=== PATIENT | female | born 1965 | race Caucasian/White ===

== ENCOUNTER 2018-06-16 12:45 | Outpatient (RCR) | payer OTHER, MEDICAID, SELFPAY ==
--- NOTE | 2018-02-26 11:19 | PT.OTN ---
Current Diagnoses Impingement syndrome of right shoulder (02/26/18) Other symptoms and signs involving the musculoskeletal system (02/26/18) Transition note: On February 24, 2018 our therapy services consisting of Speech, Occupational, and Physical Therapy transitioned from the [employer] electronic documentation system to a new [employer] electronic documentation system.?? All documentation prior to February 24 can be found under [employer] saved data. From February 24 forward all medical record documentation will be in [employer] 6.1.
--- NOTE | 2018-02-26 16:31 | PT.OTN ---
Current Diagnoses Impingement syndrome of right shoulder (02/26/18) Other symptoms and signs involving the musculoskeletal system (02/26/18) Physical Therapy Treatment Note PT-OP-A Visit Information Start: 02/26/18 11:31 Freq: Status: Active Protocol: Activity Type Activity Date Activity User E-Sign Co-Sign Detail Recorded Client Recorded Date Recorded By Document 02/26/18 16:12 [facility] [id number] 02/26/18 16:15 [facility] 02/26/18 16:12 Out-Patient Physical Therapy Visit Information [Visit Information] -Visit Type Treatment Note -Visit Start Time 11:30 -Visit Stop Time 12:25 -Total Visit Minutes 55 -Visit Number 4 -Number of HAND RIVETER Visits 0 PT-OP-C Subjective Start: 02/26/18 11:31 Freq: Status: Active Protocol: Activity Type Activity Date Activity User E-Sign Co-Sign Detail Recorded Client Recorded Date Recorded By Document 02/26/18 11:32 [facility] [id number] 02/26/18 11:48 [facility] 02/26/18 11:32 OP-PT Subjective [Patient Comments] -Patient Comments Hasn't noticed anything specifically different. Moved funky at home once and thought she 'd have pain, but didn't. Thinks she is better at her ex's. -Patient Reported Progress Same PT-OP-Q Treatments Start: 02/26/18 11:31 Freq: Status: Active Protocol: Activity Type Activity Date Activity User E-Sign Co-Sign Detail Recorded Client Recorded Date Recorded By Document 02/26/18 11:32 [facility] [id number] 02/26/18 11:48 [facility] 02/26/18 11:32 Cardio Equipment [Upper Body Ergometer (UBE)] -Duration (Minutes) 9 -RPM 80 Therapeutic Exercises [Supine Exercises] 2 -Supine Exercise Name Core stabilization on 10/28 roll with arm movements -Side bilateral -Comments Training needed . 1 -Supine Exercise Name Pectoralis Major stretch on 10/28 roll, followed by 10 scapular pinches -Side bilateral -Reps/Minutes 3 reps -Comments Arms in 2 postions: Sides & Football Goal position [Sidelying Exercises] 1 -Sidelying Exercise Name R thoracic rotation -Side left -Reps/Minutes 10x3 2 -Sidelying Exercise Name R thoracic rotation with resistance -Side left -Resistance Lev 1 T-Band -Reps/Minutes 10x3 [Standing Exercises] 1 -Standing Exercise Name Scapular depression -Side bilateral -Resistance L 2 T-Band -Reps/Minutes 15 reps PT-OP-R Modalities Start: 02/26/18 11:31 Freq: Status: Active Protocol: Activity Type Activity Date Activity User E-Sign Co-Sign Detail Recorded Client Recorded Date Recorded By Document 02/26/18 16:12 [facility] [id number] 02/26/18 16:15 [facility] 02/26/18 16:12 Hot Pack/Cold Pack [Treatment] Cold Pack -Location Back -Patient Position Supine -Treatment Duration (minutes) 10 -Patient Tolerance Good PT-OP-T Assessment and Plan Start: 02/26/18 11:31 Freq: Status: Active Protocol: Activity Type Activity Date Activity User E-Sign Co-Sign Detail Recorded Client Recorded Date Recorded By Document 02/26/18 11:48 [facility] [id number] 02/26/18 12:02 LRN 02/26/18 11:48 Physical Therapy Assessment [Impairments] -Impairments Posture ROM Strength -Other Impairments Self care education needed (HEP), core stabilization, pain relief, Improve: R shoulder flex, Cervical R rot & thoracic ext mobility. [Assessment Summary] -Assessment Pt moves very slowly and cautiously with ex's. Pt demonstrates good posture with verbal cuing. Continued thoracic ext/ rot and core stab needed. Physical Therapy Plan [Frequency and Duration] -Frequency of Treatment 2x/Week -Plan of Care Start Date 02/05/18 -Plan of Care End Date 04/06/18 [Next Visit Focus/Plan] -Next Visit Plan Current Rehab: R shoulder impingement/ posture, mobility restriction. Add JMT to correct T/S kyphosis, strengthening trunk extensors /core, HEP as needed, cryotherapy. Progress as tolerated: HEP core/posture, Postural stabilitation. STM/JMT. Stretch & progress strengthening inbto ext. ROM for C/S R Rot & R shoulder flexion.
--- NOTE | 2018-03-02 15:40 | PT.OTN ---
Current Diagnoses Impingement syndrome of right shoulder (03/02/18) Other symptoms and signs involving the musculoskeletal system (03/02/18) Physical Therapy Treatment Note PT-OP-A Visit Information Start: 02/26/18 11:31 Freq: Status: Active Protocol: Activity Type Activity Date Activity User E-Sign Co-Sign Detail Recorded Client Recorded Date Recorded By Document 03/02/18 11:29 [facility] [id number] 03/02/18 12:31 [facility] 03/02/18 11:29 Out-Patient Physical Therapy Visit Information [Visit Information] -Visit Type Treatment Note -Visit Start Time 11:29 -Visit Stop Time 12:17 -Total Visit Minutes 51 -Visit Number 5 -Number of EQUIPMENT LEAD Visits 0 PT-OP-C Subjective Start: 02/26/18 11:31 Freq: Status: Active Protocol: Activity Type Activity Date Activity User E-Sign Co-Sign Detail Recorded Client Recorded Date Recorded By Document 03/02/18 11:29 [facility] [id number] 03/02/18 11:30 [facility] 03/02/18 11:29 OP-PT Subjective [Patient Comments] -Patient Comments Having less pain overall. Did weed eating and was cautious and was sore, not pain. Better overall than it would have been. PT-OP-Q Treatments Start: 02/26/18 11:31 Freq: Status: Active Protocol: Activity Type Activity Date Activity User E-Sign Co-Sign Detail Recorded Client Recorded Date Recorded By Document 03/02/18 11:29 [facility] [id number] 03/02/18 11:40 [facility] 03/02/18 11:29 Cardio Equipment [Upper Body Ergometer (UBE)] -Duration (Minutes) 8 -RPM 80 -Seat Position 12 -Height Head height 3 Therapeutic Exercises [Supine Exercises] 5 -Supine Exercise Name Shoulder flexion Isometrics -Side bilateral -Reps/Minutes 10 reps -Comments On 10/28 Roll: Holding 5 sec's , 3 deep breathes before exercise 4 -Supine Exercise Name Shoulder flex stretch -Side bilateral -Reps/Minutes 2 reps -Comments On 10/28 roll 3 -Supine Exercise Name Cervical R rotation active stretch -Side right -Comments On 10/28 roll 1 -Supine Exercise Name Pectoralis Major stretch on 10/28 roll, followed by 10 scapular pinches -Side bilateral -Reps/Minutes 3 reps -Comments Arms in 2 positions: Sides & Football Goal position [Sidelying Exercises] 1 -Sidelying Exercise Name R thoracic rotation -Side left -Reps/Minutes 30 2 -Sidelying Exercise Name R thoracic rotation with resistance -Side left -Reps/Minutes 30 [Standing Exercises] 1 -Reps/Minutes 15x2 [Other Exercises] 1 -Other Exercise Name Hands and knees : Thoracic rot stretch: L arm lift or R hand reach under -Side right -Reps/Minutes x 2 each -Comments R rotation, 30 sec holds Manual Therapy Treatment [Joint Mobilizations] 1 -Joint Thoracic -Direction PA Alonzo -Grade III -Reps/Duration 2-3 reps per joint PT-OP-R Modalities Start: 02/26/18 11:31 Freq: Status: Active Protocol: Activity Type Activity Date Activity User E-Sign Co-Sign Detail Recorded Client Recorded Date Recorded By Document 02/26/18 16:12 [facility] [id number] 02/26/18 16:15 [facility] 02/26/18 16:12 Hot Pack/Cold Pack [Treatment] Cold Pack -Location Back -Patient Position Supine -Treatment Duration (minutes) 10 -Patient Tolerance Good PT-OP-T Assessment and Plan Start: 02/26/18 11:31 Freq: Status: Active Protocol: Activity Type Activity Date Activity User E-Sign Co-Sign Detail Recorded Client Recorded Date Recorded By Document 03/02/18 11:29 [facility] [id number] 03/02/18 12:29 [facility] 03/02/18 11:29 Physical Therapy Assessment [Impairments] -Impairments Pain Posture ROM Strength -Other Impairments HEP needed, core stabilization, pain relief. Improve: R shoulder flex, Cervical R rot & thoracic ext mobility [Assessment Summary] -Assessment Pt postural awareness appears improved with a decrease in kyphosis. She is moving more confidently with ex's. Stiffness is present with thoracic rotation. Thoracic ext/ rot & core stab needed. Physical Therapy Plan [Frequency and Duration] -Frequency of Treatment 2x/Week -Duration of Treatment 5 weeks left -Plan of Care Start Date 02/05/18 -Plan of Care End Date 04/06/18 [Therapeutic Interventions] -Other Therapeutic Interventions HEP, Education, Therapeutic Ex's, Stretching/ Flexibility ex' s, Neuromuscular ex's, Manual therapy, JMT, ? Aquatics Pool. [Next Visit Focus/Plan] -Next Visit Plan Current Rehab: R shoulder impingement/ posture, mobility restriction. Check: Cervical R rot and R shoulder flexion ROM, thoracic kyphosis (Wall to Tragus), strengthening trunk extensors /core, HEP as needed, cryotherapy. Progress as tolerated: HEP core/posture, Postural stabilization. STM/JMT. Stretch & progress strengthening into ext. ROM for C/S R Rot & R shoulder flexion. [ End ]
--- NOTE | 2018-03-05 12:33 | PT.OTN ---
Current Diagnoses Impingement syndrome of right shoulder (03/05/18) Other symptoms and signs involving the musculoskeletal system (03/05/18) Physical Therapy Treatment Note PT-OP-A Visit Information Start: 02/26/18 11:31 Freq: Status: Active Protocol: Document 03/05/18 11:23 LRN (Rec: 03/05/18 12:28 LRN [id number]) Out-Patient Physical Therapy Visit Information Visit Information Visit Type Treatment Note Visit Start Time 11:15 Visit Stop Time 12:10 Visit Number 6 Number of BURRER MARKER AXLE Visits 0 Evaluation Information Evaluation Date 02/05/18 PT-OP-C Subjective Start: 02/26/18 11:31 Freq: Status: Active Protocol: Document 03/05/18 11:23 LRN (Rec: 03/05/18 12:28 LRN [id number]) OP-PT Subjective Patient Comments Patient Comments R shoulder with twisting, bending, reaching is having less fear moving because the shoulder feels better. Leaning to stretch for her phone didn't cause her pain. Buring pain along spine just a little bit, no shoulder pain at the moment. Patient Reported Progress Improving PT-OP-K Range of Motion Start: 03/05/18 12:28 Freq: Status: Active Protocol: Document 03/05/18 11:23 LRN (Rec: 03/05/18 12:31 LRN [id number]) Cervical Spine Range of Motion Cervical Spine Active Testing Position Sitting Rotation Left 78 Rotation Right 60 Shoulder Goniometric Range of Motion Shoulder Measured in Degrees Left Active Testing Position Sitting Flexion 158 Right Active Testing Position Sitting Flexion 170 PT-OP-Q Treatments Start: 02/26/18 11:31 Freq: Status: Active Protocol: Document 03/05/18 11:23 LRN (Rec: 03/05/18 12:28 LRN [id number]) Cardio Equipment Upper Body Ergometer (UBE) Duration (Minutes) 10 RPM 79 Seat Position 11 Height Head height 3 Therapeutic Exercises Supine Exercises 5 Supine Exercise Name Shoulder flexion Isometrics Side bilateral Reps/Minutes 10 reps Comments On 2 Roll: Holding 5 sec's, 3 deep breathes before exercise 4 Supine Exercise Name Shoulder flex stretch Side bilateral Reps/Minutes 10 reps Comments On 2 roll, 10 sec holds 3 Supine Exercise Name Cervical R rotation active stretch Side right Reps/Minutes 10 reps Comments On 10/28 roll 1 Supine Exercise Name Pectoralis Major stretch on 10/28 roll, followed by 10 scapular pinches Side bilateral Reps/Minutes 2 reps Comments Arms in 2 positions: Sides & Football Goal position Prone Exercises 1 Prone Exercise Name Alternate arm/leg lifts with Deep Cervical Neck Flexor contraction Side bilateral Reps/Minutes 10 reps Sidelying Exercises 1 Sidelying Exercise Name R thoracic rotation Side bilateral Reps/Minutes 15 Manual Therapy Treatment Joint Mobilizations 1 Joint Thoracic Direction PA Alonzo Grade III Reps/Duration 2-3 reps per joint Self-Care/Home Management Treatment Activities Self-Care/Home Management Activities Instructed pt to do Thoracic rotation in sidelie and C. Rotation bilaterally. Pt to work towards symmetry of C. rot & shoulder flexion. PT-OP-R Modalities Start: 02/26/18 11:31 Freq: Status: Active Protocol: Document 03/05/18 11:23 LRN (Rec: 03/05/18 12:28 LRN [id number]) Hot Pack/Cold Pack Treatment Cold Pack Location Upper > Low back Patient Position Supine Treatment Duration (minutes) 10 Patient Tolerance Good PT-OP-T Assessment and Plan Start: 02/26/18 11:31 Freq: Status: Active Protocol: Document 03/05/18 11:23 LRN (Rec: 03/05/18 12:28 LRN [id number]) Physical Therapy Assessment Impairments Impairments Pain Posture ROM Strength Other Impairments HEP needed, core stabilization , pain relief. Improve: Symmetry of Cervical rot & shoulder flex. Impronve thoracic ext mobility. Assessment Summary Assessment Pt demonstrates greater R Cervical rotation and shoulder flexion than the left. Wall to Tragus is 6 3/4 inches. Pt now needs to focus on improving symmetry of motion of cervical rotation and shoulder flexion. Physical Therapy Plan Frequency and Duration Frequency of Treatment 2x/Week Duration of Treatment 5 weeks left Plan of Care Start Date 02/05/18 Plan of Care End Date 04/06/18 Therapeutic Interventions Other Therapeutic Interventions HEP, Education, Therapeutic Ex's, Stretching/Flexibility ex's, Neuromuscular ex's, Manual therapy, JMT, ?Aquatics Pool. Next Visit Focus/Plan Next Visit Plan T-Ball. Current Rehab: R shoulder impingement/posture, mobility restriction. Try Trunk ext stretch and ex on Strengthening trunk extensors/core, HEP as needed, cryotherapy. Progress as tolerated: HEP core/posture, Postural stabilization. STM/JMT. Stretch & progress strengthening inbto ext. ROM for C/S R Rot & R shoulder flexion. [ End ]
--- NOTE | 2018-03-09 12:31 | PT.OTN ---
Current Diagnoses Impingement syndrome of right shoulder (03/09/18) Other symptoms and signs involving the musculoskeletal system (03/09/18) Physical Therapy Treatment Note PT-OP-A Visit Information Start: 02/26/18 11:31 Freq: Status: Active Protocol: Document 03/09/18 11:20 LRN (Rec: 03/09/18 12:13 LRN [id number]) Out-Patient Physical Therapy Visit Information Visit Information Visit Type Treatment Note Visit Note 05/05 Visit Start Time 11:17 Visit Stop Time 12:03 Total Visit Minutes 48 Visit Number 7 Number of GRIP Visits 0 Evaluation Information Evaluation Date 02/05/18 PT-OP-C Subjective Start: 02/26/18 11:31 Freq: Status: Active Protocol: Document 03/09/18 11:20 LRN (Rec: 03/09/18 12:13 LRN [id number]) OP-PT Subjective Patient Comments Patient Comments States she has stiffness in the upper back. Upper back pain with washing dishes because of the depth of the sink, after 10' feels it. PT-OP-K Range of Motion Start: 03/05/18 12:28 Freq: Status: Active Protocol: Document 03/05/18 11:23 LRN (Rec: 03/05/18 12:31 LRN [id number]) Cervical Spine Range of Motion Cervical Spine Active Testing Position Sitting Rotation Left 78 Rotation Right 60 Shoulder Goniometric Range of Motion Shoulder Measured in Degrees Left Active Testing Position Sitting Flexion 158 Right Active Testing Position Sitting Flexion 170 PT-OP-Q Treatments Start: 02/26/18 11:31 Freq: Status: Active Protocol: Document 03/09/18 11:20 LRN (Rec: 03/09/18 12:13 LRN [id number]) Cardio Equipment Upper Body Ergometer (UBE) Duration (Minutes) 10 RPM 70 Seat Position 11 Height Head height 3 Therapeutic Exercises Supine Exercises 6 Supine Exercise Name Hands/Knees Push without pillow & Deep C. Neck flexor contraction Reps/Minutes 15 reps, 10 sec holds Comments T-Ball supporting legs, performed with Kegel 5 Supine Exercise Name Shoulder flexion Isometrics Side bilateral Reps/Minutes 10 reps Comments On T-Ball: Holding 5 sec's, 3 deep breathes before exercise 4 Supine Exercise Name Shoulder flex stretch Side bilateral Reps/Minutes 10 reps Comments On T-Ball roll, 60 sec holds 3 Supine Exercise Name Cervical R rotation active stretch Side right Reps/Minutes 10 reps 1 Supine Exercise Name Pectoralis Major stretch on T- Ball, followed by 10 scapular pinches Side bilateral Reps/Minutes 2 reps Comments Arms in 2 positions: Sides & Football Goal position Prone Exercises 1 Prone Exercise Name Alternate arm/leg lifts with Deep Cervical Neck Flexor contraction Side bilateral Reps/Minutes 10 reps Sidelying Exercises 1 Sidelying Exercise Name R thoracic rotation Side bilateral Reps/Minutes 15 Sitting Exercises 1 Sitting Exercise Name T-Band shoulder ER Side bilateral Resistance Lev 1 Equipment Used T-Band Reps/Minutes 15 Self-Care/Home Management Treatment Activities Self-Care/Home Management Activities I/S pt to do HEP: T-Band shoulder ER ex and more prone arm/leg lifts with abdominal contraction for core stability . PT-OP-R Modalities Start: 02/26/18 11:31 Freq: Status: Active Protocol: Document 03/09/18 11:20 LRN (Rec: 03/09/18 12:13 LRN [id number]) Hot Pack/Cold Pack Treatment Cold Pack Location Upper > Low back Patient Position Supine Treatment Duration (minutes) 10 Patient Tolerance Good PT-OP-T Assessment and Plan Start: 02/26/18 11:31 Freq: Status: Active Protocol: Document 03/09/18 11:20 LRN (Rec: 03/09/18 12:13 LRN [id number]) Physical Therapy Assessment Impairments Impairments Pain Posture ROM Strength Other Impairments HEP needed, core stabilization, pain relief. Improve: Symmetry of Cervical rot & shoulder flex. Improve thoracic ext mobility. Assessment Summary Assessment Thoracic rot L appears more restricted than rot R. Pt able to reach overhead without onset of shoulder pain. Physical Therapy Plan Frequency and Duration Frequency of Treatment 2x/Week Duration of Treatment 4 weeks left Plan of Care Start Date 02/05/18 Plan of Care End Date 04/06/18 Therapeutic Interventions Other Therapeutic Interventions HEP, Education, Therapeutic Ex's, Stretching/Flexibility ex's, Neuromuscular ex's, Manual therapy, JMT, ?Aquatics Pool. Next Visit Focus/Plan Next Visit Plan Progress upper back ex's on T- Ball for thoracic ext and strengthening. Current Rehab: R shoulder impingement/posture, mobility restriction, Strengthening trunk extensors/ core, HEP as needed, cryotherapy. Progress as tolerated: HEP core, Postural stabilization, JMT, Trunk stretch & strengthening progression into ext. ROM for symmetry of C/S Rot & shoulder flexion. [ End ]
--- NOTE | 2018-03-12 13:11 | PT.OTN ---
Current Diagnoses Impingement syndrome of right shoulder (03/12/18) Other symptoms and signs involving the musculoskeletal system (03/12/18) Physical Therapy Treatment Note PT-OP-A Visit Information Start: 02/26/18 11:31 Freq: Status: Active Protocol: Document 03/12/18 11:22 LRN (Rec: 03/12/18 13:06 LRN [id number]) Out-Patient Physical Therapy Visit Information Visit Information Visit Type Treatment Note Visit Note 06/05 Visit Start Time 11:20 Visit Stop Time 12:13 Total Visit Minutes 53 Visit Number 8 Number of TAR BOILER Visits 0 Evaluation Information Evaluation Date 02/05/18 PT-OP-C Subjective Start: 02/26/18 11:31 Freq: Status: Active Protocol: Document 03/12/18 11:22 LRN (Rec: 03/12/18 13:06 LRN [id number]) OP-PT Subjective Patient Comments Patient Comments States her entire back was more sore yesterday. Stiff overall. if it wasn't for yesterday Id say I was improving. Feeling she can carry her purse better without a strain. PT-OP-K Range of Motion Start: 03/05/18 12:28 Freq: Status: Active Protocol: Document 03/12/18 13:09 LRN (Rec: 03/12/18 13:11 LRN [id number]) Cervical Spine Range of Motion Cervical Spine Active Rotation Left 85 Rotation Right 75 Comments Wall to Tragus: 6-3/8 inches Shoulder Goniometric Range of Motion Shoulder Measured in Degrees Left Active Testing Position Supine Flexion 170 Right Active Testing Position Sitting Flexion 170 PT-OP-Q Treatments Start: 02/26/18 11:31 Freq: Status: Active Protocol: Document 03/12/18 11:22 LRN (Rec: 03/12/18 13:06 LRN [id number]) Cardio Equipment Upper Body Ergometer (UBE) Duration (Minutes) 10 RPM 70 Seat Position 11 Height Head height 3 Therapeutic Exercises Supine Exercises 5 Supine Exercise Name Shoulder flexion Isometrics Side bilateral Reps/Minutes 10 reps Comments On 1/2 roll: Holding 5 sec's 4 Supine Exercise Name Shoulder flex stretch Side bilateral Reps/Minutes 1 reps Comments On 1/2 roll, 60 sec holds 3 Supine Exercise Name Cervical R rotation active stretch Side right Reps/Minutes 5 reps 1 Supine Exercise Name Pectoralis Major stretch on 10/28 roll, followed by 10 scapular pinches Side bilateral Reps/Minutes 1 reps - 60 second stretch Comments Arms in 2 positions: Sides & Football Goal & overhead position Prone Exercises 1 Prone Exercise Name Alternate arm/leg lifts with Deep Cervical Neck Flexor contraction Side bilateral Reps/Minutes 15 x 2 reps Manual Therapy Treatment Joint Mobilizations 1 Joint Thoracic Direction PA Glides Grade III Reps/Duration 2-3 reps per joint Taping 1 Body Location Thoracic and lumbar paraspinals Treatment Focus Strengthen thoracic paraspinals. Relax lumbar paraspinals. Type of Tape Kinesio Tape Skin Inspection Skin cleaned with 70% alcohol. Skin was health and intact Comments 2 I-strips: 1 along each paraspinals to L 1. One Y- strip starting at L5 up to T 12. Pt felt the K-tape was helping with posture. Self-Care/Home Management Treatment Education Patient Education Safety Other Education Pt instructed in removal of K- tape and of 5 day wear limit. Pt to remove tape 1 day before next treatment session. PT-OP-R Modalities Start: 02/26/18 11:31 Freq: Status: Active Protocol: Document 03/12/18 11:22 LRN (Rec: 03/12/18 13:06 LRN [id number]) Hot Pack/Cold Pack Treatment Cold Pack Location Upper > Low back Patient Position Supine Treatment Duration (minutes) 10 Patient Tolerance Good PT-OP-T Assessment and Plan Start: 02/26/18 11:31 Freq: Status: Active Protocol: Document 03/12/18 11:22 LRN (Rec: 03/12/18 13:06 LRN [id number]) Physical Therapy Assessment Impairments Impairments Pain Posture ROM Strength Other Impairments HEP needed, core stabilization , pain relief. Improve: Symmetry of Cervical rot & shoulder flex. Improve thoracic ext mobility. Goals Three Impairment Decreased Thoracic muscle strength Custodial Goal (LTG) Increase Thoracic strength by no less than 1 grade for elimination of pain with washing of dishes. LTG Duration 04/06/18 Two Impairment Increased Thoracic Kyphosis Short Term Goal (STG) Pt educated in proper posturing to minimize thoracic kyphosis. STG Duration 02/19/18 Custodial Goal (LTG) Pt independent HEP/Self care program. LTG Duration 04/06/18 One Impairment Lacks appropriate home exercise program. Hris Administrator Goal (LTG) Pt educated in proper posturing to minimize thoracic kyphosis. LTG Duration 04/06/18 Progress Towards Goals Progress Towards Goals Progressing Toward Goals Progress Comments Pt has been educated in proper posturing Pt tolerance to exercise is improving; therefore strength appears improved. Her shoulder flex is symmetrical at 170 deg's. Cervical L rotation appears slightly restricted compared to the R. Pt awareness of posture and increased kyphosis is much improved per pt report. Assessment Summary Assessment Pt felt better thoracic stretch felt on 10/28 vs T- Ball. Pt appears to have a good understanding of signs to watch for with a negative skin reaction and when to remove the K-tape. Good tolerance to exercise and stretch, Physical Therapy Plan Frequency and Duration Frequency of Treatment 2x/Week Duration of Treatment 4 weeks left Plan of Care Start Date 02/05/18 Plan of Care End Date 04/06/18 Therapeutic Interventions Other Therapeutic Interventions HEP, Education, Therapeutic Ex's, Stretching/Flexibility ex's, Neuromuscular ex's, Manual therapy, JMT, Aquatics Pool. Next Visit Focus/Plan Next Visit Plan Progress upper back ex's on . Current Rehab: R shoulder impingement/posture, mobility restriction, Strengthening trunk extensors/ core, HEP as needed, cryotherapy. Progress as tolerated: HEP core, Postural stabilization, JMT, Trunk stretch & strengthening progression into ext. ROM for symmetry of C/S Rot & shoulder flexion. [ End ]
--- NOTE | 2018-03-16 12:25 | PT.OTN ---
Current Diagnoses Impingement syndrome of right shoulder (03/16/18) Other symptoms and signs involving the musculoskeletal system (03/16/18) Physical Therapy Treatment Note PT-OP-A Visit Information Start: 02/26/18 11:31 Freq: Status: Active Protocol: Document 03/16/18 11:25 LRN (Rec: 03/16/18 12:17 LRN [id number]) Out-Patient Physical Therapy Visit Information Visit Information Visit Type Treatment Note Visit Note 07/06 Visit Start Time 11:25 Visit Stop Time 12:14 Total Visit Minutes 49 Visit Number 9 Number of PREVOCATIONAL/REHABILITATION COUNSELOR Visits 0 PT-OP-C Subjective Start: 02/26/18 11:31 Freq: Status: Active Protocol: Document 03/16/18 11:25 LRN (Rec: 03/16/18 12:17 LRN [id number]) OP-PT Subjective Patient Comments Patient Comments Shoulder is doing good. K- tape helped to remind her of upright posture. States she can now wipe more easily after using bathroom from behind instead of in front. PT-OP-K Range of Motion Start: 03/05/18 12:28 Freq: Status: Active Protocol: Document 03/12/18 13:09 LRN (Rec: 03/12/18 13:11 LRN [id number]) Cervical Spine Range of Motion Cervical Spine Active Rotation Left 85 Rotation Right 75 Comments Wall to Tragus: 6-3/8 inches Shoulder Goniometric Range of Motion Shoulder Measured in Degrees Left Active Testing Position Supine Flexion 170 Right Active Testing Position Sitting Flexion 170 PT-OP-Q Treatments Start: 02/26/18 11:31 Freq: Status: Active Protocol: Document 03/16/18 11:25 LRN (Rec: 03/16/18 12:17 LRN [id number]) Cardio Equipment Upper Body Ergometer (UBE) Duration (Minutes) 8 RPM 70 Seat Position 11 Height Head height 3 Therapeutic Exercises Supine Exercises 5 Supine Exercise Name Shoulder flexion Isometrics Side bilateral Reps/Minutes 10 reps Comments On 1/2 roll: Holding 5 sec's 4 Supine Exercise Name Shoulder flex stretch Side bilateral Reps/Minutes 1 reps Comments On 1/2 roll, 60 sec holds 3 Supine Exercise Name Cervical R rotation active stretch Side right Reps/Minutes 5 reps 1 Supine Exercise Name Pectoralis Major stretch on 10/28 roll, followed by 10 scapular pinches Side bilateral Reps/Minutes 1 reps - 60 second stretch Comments Arms in 2 postions: Sides & Football Goal & overhead position Sitting Exercises 1 Sitting Exercise Name T-Band shoulder ER/IR Side bilateral Resistance Lev 1 Equipment Used T-Band Reps/Minutes 15x2 Standing Exercises 4 Standing Exercise Name Standing forward bending at hips with cervical/uper Thoracic ext/abdomen Side bilateral Reps/Minutes 10x 3 Standing Exercise Name Shoulde ext with deep C neck flexors Side bilateral Reps/Minutes 15x Comments Arm lifts off back 2 Standing Exercise Name Thoracic rotation (Wood chop motion) Side bilateral Resistance Lev 2 T-Band Reps/Minutes 15x2 Manual Therapy Treatment Joint Mobilizations 1 Joint Thoracic Direction PA Alonzo Grade III Reps/Duration 10' Taping 1 Type of Tape Kinesio Tape Comments Deferred this visit due to pt has no one to help her to remove the tape until her next visit. PT-OP-R Modalities Start: 02/26/18 11:31 Freq: Status: Active Protocol: Document 03/12/18 11:22 LRN (Rec: 03/12/18 13:06 LRN [id number]) Hot Pack/Cold Pack Treatment Cold Pack Location Upper > Low back Patient Position Supine Treatment Duration (minutes) 10 Patient Tolerance Good PT-OP-T Assessment and Plan Start: 02/26/18 11:31 Freq: Status: Active Protocol: Document 03/16/18 11:25 LRN (Rec: 03/16/18 12:17 LRN [id number]) Physical Therapy Assessment Impairments Impairments Pain Posture ROM Strength Other Impairments HEP needed, core stabilization , pain relief. Improve: Symmetry of Cervical rot & shoulder flex. Impronve thoracic ext mobility. Goals Three Impairment Decreased Thoracic muscle strength Long-Term Goal (LTG) Increase Thoracic strength by no less than 1 grade for elimination of pain with washing of dishes. LTG Duration 04/06/18 Two Impairment Increased Thoracic Kyphosis Short Term Goal (STG) Pt educated in proper posturing to minimize thoracic kyphosis. STG Duration 02/19/18 Long-Term Goal (LTG) Pt independent HEP/Self care program. LTG Duration 04/06/18 One Impairment Lacks appropriate home exercise program. Long-Term Goal (LTG) Pt educated in proper posturing to minimize thoracic kyphosis. LTG Duration 04/06/18 Assessment Summary Assessment Pt too fatigued to complete 10 ' cardio ex at end of therapy; therefore pt only tolerated 8 ' on UBE. Pt doesn't have anyone at home to remove K- tape; therefore will defer use until next visit when mom will be available to assist pt . Pt appears to be decreasing her thoracic kyphosis, but her lumbar lordosis is notably increased. Physical Therapy Plan Frequency and Duration Frequency of Treatment 2x/Week Duration of Treatment 3 weeks left Plan of Care Start Date 02/05/18 Plan of Care End Date 04/06/18 Therapeutic Interventions Other Therapeutic Interventions HEP, Education, Therapeutic Ex's, Stretching/Flexibiltiy ex's, Neuromuscular ex's, Manual therapy, JMT, Aquatics Pool. Next Visit Focus/Plan Next Visit Plan Recheck for Progress Note. Current Rehab: R shoulder impingement/posture, mobility restriction, Strengthening trunk extensors/ core, HEP as needed, cryotherapy. Progress as tolerated: HEP core, Postural stabilization, JMT, Trunk stretch & strengthening progression into ext. ROM for symmetry of C/S Rot & shoulder flexion. [ End ] Please Sign and Return: I have reviewed this Plan of Care and certify that the skilled therapy services above are required to meet the patient???s needs. Physician Signature Date Printed Name and Credentials Clinical Instructor Signature Printed Name and Credentials
--- NOTE | 2018-03-19 15:34 | PT.OTN ---
Current Diagnoses Impingement syndrome of right shoulder (03/19/18) Other symptoms and signs involving the musculoskeletal system (03/19/18) Physical Therapy Treatment Note PT-OP-A Visit Information Start: 02/26/18 11:31 Freq: Status: Active Protocol: Document 03/19/18 11:18 LRN (Rec: 03/19/18 12:34 LRN [id number]) Out-Patient Physical Therapy Visit Information Visit Information Visit Type Treatment Note Visit Note 07/06 Visit Start Time 11:18 Visit Stop Time 12:13 Total Visit Minutes 55 Visit Number 10 Number of FISHER Visits 0 Evaluation Information Evaluation Date 02/05/18 PT-OP-C Subjective Start: 02/26/18 11:31 Freq: Status: Active Protocol: Document 03/19/18 11:18 LRN (Rec: 03/19/18 12:42 LRN [id number]) OP-PT Subjective Patient Comments Patient Comments States she had pain in upper back while waiting to check in . States overall doing dishes she only has to stop once to rest when before it was 2-3 times to finish her dishes. Patient Reported Progress Improving Patient Questionnaires Quick Dash- Upper Extremity Quick Dash UE Score 29.54 Quick Dash UE Impairment 20 to 39% Impaired (Score 20- 39) OP-PT Pain Assessment Pain Assessment Grid Paper Pain Assessment Grid Completed Yes Location Bilateral Upper Back Intensity 3 Pain Aggravating Factors Position Activity Standing Patient Stated Pain Goal No pain with entire load of dishes PT-OP-K Range of Motion Start: 03/05/18 12:28 Freq: Status: Active Protocol: Document 03/19/18 11:18 LRN (Rec: 03/19/18 12:42 LRN [id number]) Cervical Spine Range of Motion Cervical Spine Active Rotation Left 78 Rotation Right 78 PT-OP-M Strength Start: 03/19/18 12:35 Freq: Status: Active Protocol: Document 03/19/18 11:18 LRN (Rec: 03/19/18 12:42 LRN [id number]) Trunk Strength Trunk Manual Muscle Testing Extension 3+ Fair+ PT-OP-Q Treatments Start: 02/26/18 11:31 Freq: Status: Active Protocol: Document 03/19/18 11:18 LRN (Rec: 03/19/18 12:34 LRN [id number]) Cardio Equipment Upper Body Ergometer (UBE) Duration (Minutes) 10 RPM 60 Seat Position 11 Height Head height 2 Therapeutic Exercises Supine Exercises 6 Supine Exercise Name Lifting knees to 90 deg's hip flex, Yellow ball btn feet Reps/Minutes 10 reps Comments Some training needed, pt moving slow and cautious. 5 Supine Exercise Name Shoulder flexion Isometrics Side bilateral Reps/Minutes 5 reps Comments On 10/28 roll: Holding 10 sec's 4 Supine Exercise Name Shoulder flex stretch Side bilateral Reps/Minutes 1 reps Comments On 10/28 roll, 60 sec holds 3 Supine Exercise Name Cervical R rotation active stretch Side right Reps/Minutes 5 reps 1 Supine Exercise Name Pectoralis Major stretch on 10/28 roll, followed by 10 Side bilateral Reps/Minutes 1 reps - 60 second stretch Comments Arms in 2 postions: Sides & Football Goal & overhead position Prone Exercises 1 Prone Exercise Name Alternate arm lifts with Deep Cervical Neck Flexor contraction Side bilateral Reps/Minutes 15 x reps Sidelying Exercises 1 Sidelying Exercise Name R thoracic rotation Side bilateral Reps/Minutes 15 2 Sidelying Exercise Name R thoracic rotation with resistance Side left Reps/Minutes 30 Standing Exercises 3 Standing Exercise Name Shoulder ext with deep C neck flexors Side bilateral Reps/Minutes 5 X Comments Arm ext & lifts off back Manual Therapy Treatment Joint Mobilizations 1 Joint Thoracic Direction PA Alonzo Grade III Reps/Duration 3' Comments Improved JMT of T2-T4, mild tenderness at T1-T4. No pain with T5-T6, pain at T7, T8. ~ T6 is R rotated PT-OP-R Modalities Start: 02/26/18 11:31 Freq: Status: Active Protocol: Document 03/19/18 11:18 LRN (Rec: 03/19/18 12:34 LRN [id number]) Hot Pack/Cold Pack Treatment Cold Pack Location Upper > Low back Patient Position Supine Treatment Duration (minutes) 10 Patient Tolerance Good PT-OP-T Assessment and Plan Start: 02/26/18 11:31 Freq: Status: Active Protocol: Document 03/19/18 11:18 LRN (Rec: 03/19/18 12:34 LRN [id number]) Physical Therapy Assessment Rehab Potential Rehabilitation Potential Good Impairments Impairments Pain Posture ROM Strength Other Impairments HEP needed, core stabilization , pain relief. Improve: Symmetry of Cervical rot & shoulder flex. Impronve thoracic ext mobility. Goals Three Impairment Decreased Thoracic muscle strength Jet Engine Mechanic Goal (LTG) Increase Thoracic strength by no less than 1 grade for elimination of pain with washing of dishes. LTG Duration 04/16/18 Two Impairment Increased Thoracic Kyphosis Jet Engine Mechanic Goal (LTG) Pt independent HEP/Self care program. LTG Duration 04/16/18 One Impairment Lacks appropriate home exercise program. Jet Engine Mechanic Goal (LTG) Pt educated in proper posturing to minimize thoracic kyphosis. LTG Duration 04/16/18 Progress Towards Goals Progress Towards Goals Slow Progress due to Activity Tolerance Progress Comments 1) HEP education is ongoing. 2) STG Met. Pt has been educated in proper posturing to minimize thoracic kyphosis. LTG: HEP, progressing with ongoing education as appropriate. 3) Thoracic strength is slowly improving with pain the limiting factor. Pt extreme thoracic kyphosis is hindering her progress. Assessment Summary Assessment Pt has shown good awareness of proper posturing to minimize her thoracic kyphosis; therefore STG #2 met, LTG #2 is ongoing. Pt is being progressed on her HEP as appropriate; therefore goal #1 & #2 is in progress. Her Thoracic strength is limited but improving as noted by a decrease in rest periods during her dishwashing episodes from 3 to now 1 time. Pt would benefit from up to 4 more weeks of skilled physical therapy to improve her posture and Thoracic strength in order to minimize upper back pain. Physical Therapy Plan Frequency and Duration Frequency of Treatment 2x/Week Duration of Treatment 3 weeks left Plan of Care Start Date 02/05/18 Plan of Care End Date 04/10/18 Therapeutic Interventions Therapeutic Interventions Home Exercise Program Manual Therapy Patient/Caregiver Education Self-Care/Home Management Soft Tissue Mobilization Therapeutic Exercises Modalities Cold Pack/Ice Massage Electric Stimulation Hot Packs Iontophoresis Ultrasound Next Visit Focus/Plan Next Visit Plan Check Wall to Tragus distance. Current Rehab: R shoulder impingement/posture, mobility restriction, Strengthening trunk extensors/ core, HEP as needed, cryotherapy. Progress as tolerated: HEP core, Postural stabilization, JMT, Trunk stretch & strengthening progression into ext. ROM for symmetry of C/S Rot & shoulder flexion. [ End ]
--- NOTE | 2018-03-19 15:38 | PT.OPPN ---
Current Diagnoses Impingement syndrome of right shoulder (03/19/18) Other symptoms and signs involving the musculoskeletal system (03/19/18) Physical Therapy Progress Note PT-OP-A Visit Information Start: 02/26/18 11:31 Freq: Status: Active Protocol: Document 03/19/18 11:18 LRN (Rec: 03/19/18 12:34 LRN [id number]) Out-Patient Physical Therapy Visit Information Visit Information Visit Type Progress Note Visit Note 07/06 Visit Start Time 11:18 Visit Stop Time 12:13 Total Visit Minutes 55 Visit Number 10 Number of DIRECTOR MULTIMEDIA Visits 0 Evaluation Information Evaluation Date 02/05/18 PT-OP-C Subjective Start: 02/26/18 11:31 Freq: Status: Active Protocol: Document 03/19/18 11:18 LRN (Rec: 03/19/18 12:42 LRN [id number]) OP-PT Subjective Patient Comments Patient Comments States she had pain in upper back while waiting to check in . States overall doing dishes she only has to stop once to rest when before it was 2-3 times to finish her dishes. Patient Reported Progress Improving Patient Questionnaires Quick Dash- Upper Extremity Quick Dash UE Score 29.54 Quick Dash UE Impairment 20 to 39% Impaired (Score 20- 39) OP-PT Pain Assessment Pain Assessment Grid Paper Pain Assessment Grid Completed Yes Location Bilateral Upper Back Intensity 3 Pain Aggravating Factors Position Activity Standing Patient Stated Pain Goal No pain with entire load of dishes PT-OP-K Range of Motion Start: 03/05/18 12:28 Freq: Status: Active Protocol: Document 03/19/18 11:18 LRN (Rec: 03/19/18 12:42 LRN [id number]) Cervical Spine Range of Motion Cervical Spine Active Rotation Left 78 Rotation Right 78 PT-OP-M Strength Start: 03/19/18 12:35 Freq: Status: Active Protocol: Document 03/19/18 11:18 LRN (Rec: 03/19/18 12:42 LRN [id number]) Trunk Strength Trunk Manual Muscle Testing Extension 3+ Fair+ PT-OP-T Assessment and Plan Start: 02/26/18 11:31 Freq: Status: Active Protocol: Document 03/19/18 11:18 LRN (Rec: 03/19/18 12:34 LRN [id number]) Physical Therapy Assessment Rehab Potential Rehabilitation Potential Good Impairments Impairments Pain Posture ROM Strength Other Impairments HEP needed, core stabilization , pain relief. Improve: Symmetry of Cervical rot & shoulder flex. Improve thoracic ext mobility. Goals Three Impairment Decreased Thoracic muscle strength Senior Care Goal (LTG) Increase Thoracic strength by no less than 1 grade for elimination of pain with washing of dishes. LTG Duration 04/16/18 Two Impairment Increased Thoracic Kyphosis Senior Care Goal (LTG) Pt independent HEP/Self care program. LTG Duration 04/16/18 One Impairment Lacks appropriate home exercise program. Pottery Machine Operator Goal (LTG) Pt educated in proper posturing to minimize thoracic kyphosis. LTG Duration 04/16/18 Progress Towards Goals Progress Towards Goals Slow Progress due to Activity Tolerance Progress Comments 1) HEP education is ongoing. 2) STG Met. Pt has been educated in proper posturing to minimize thoracic kyphosis. LTG: HEP, progressing with ongoing education as appropriate. 3) Thoracic strength is slowly improving with pain the limiting factor. Pt extreme thoracic kyphosis is hindering her progress. Assessment Summary Assessment Pt has shown good awareness of proper posturing to minimize her thoracic kyphosis; therefore STG #2 met, LTG #2 is ongoing. Pt is being progressed on her HEP as appropriate; therefore goal #1 & #2 is in progress. Her Thoracic strength is limited but improving as noted by a decrease in rest periods during her dishwashing episodes from 3 to now 1 time. Pt would benefit from up to 4 more weeks of skilled physical therapy to improve her posture and Thoracic strength in order to minimize upper back pain. Physical Therapy Plan Frequency and Duration Frequency of Treatment 2x/Week Duration of Treatment 3 weeks left Plan of Care Start Date 02/05/18 Plan of Care End Date 04/10/18 Therapeutic Interventions Therapeutic Interventions Home Exercise Program Manual Therapy Patient/Caregiver Education Self-Care/Home Management Soft Tissue Mobilization Therapeutic Exercises Modalities Cold Pack/Ice Massage Electric Stimulation Hot Packs Iontophoresis Ultrasound Next Visit Focus/Plan Next Visit Plan Check Wall to Tragus distance. Current Rehab: R shoulder impingement/posture, mobility restriction, Strengthening trunk extensors/ core, HEP as needed, cryotherapy. Progress as tolerated: HEP core, Postural stabilization, JMT, Trunk stretch & strengthening progression into ext. ROM for symmetry of C/S Rot & shoulder flexion. [ End ] Please Sign and Return: I have reviewed this Plan of Care and certify that the skilled therapy services above are required to meet the patient???s needs. Physician Signature Date Printed Name and Credentials Clinical Instructor Signature Printed Name and Credentials
--- NOTE | 2018-03-19 15:40 | PT.OPPOC ---
Current Diagnoses Impingement syndrome of right shoulder (03/19/18) Other symptoms and signs involving the musculoskeletal system (03/19/18) Provider Visit Care Team Role Provider Type Merline Chou PA-C Family Provider Advanced Practioner Clinician Primary Care Provider Specialty: Medical Address: [address] [place] [address], [id number] Email: [email or web address] Morillo PA-C Attending Provider Advanced Practioner Clinician Specialty: Family Practice Address: [address] [place] [address], [id number] Email: [email or web address] Plan Of Care PT-OP-T Assessment and Plan Start: 02/26/18 11:31 Freq: Status: Active Protocol: Document 03/19/18 11:18 LRN (Rec: 03/19/18 12:34 LRN [id number]) Physical Therapy Assessment Rehab Potential Rehabilitation Potential Good Impairments Impairments Pain Posture ROM Strength Other Impairments HEP needed, core stabilization , pain relief. Improve: Symmetry of Cervical rot & shoulder flex. Improve thoracic ext mobility. Goals Three Impairment Decreased Thoracic muscle strength Cushion Maker Goal (LTG) Increase Thoracic strength by no less than 1 grade for elimination of pain with washing of dishes. LTG Duration 04/16/18 Two Impairment Increased Thoracic Kyphosis Cushion Maker Goal (LTG) Pt independent HEP/Self care program. LTG Duration 04/16/18 One Impairment Lacks appropriate home exercise program. Long-Term Goal (LTG) Pt educated in proper posturing to minimize thoracic kyphosis. LTG Duration 04/16/18 Progress Towards Goals Progress Towards Goals Slow Progress due to Activity Tolerance Progress Comments 1) HEP education is ongoing. 2) STG Met. Pt has been educated in proper posturing to minimize thoracic kyphosis. LTG: HEP, progressing with ongoing education as appropriate. 3) Thoracic strength is slowly improving with pain the limiting factor. Pt extreme thoracic kyphosis is hindering her progress. Assessment Summary Assessment Pt has shown good awareness of proper posturing to minimize her thoracic kyphosis; therefore STG #2 met, LTG #2 is ongoing. Pt is being progressed on her HEP as appropriate; therefore goal #1 & #2 is in progress. Her Thoracic strength is limited but improving as noted by a decrease in rest periods during her dishwashing episodes from 3 to now 1 time. Pt would benefit from up to 4 more weeks of skilled physical therapy to improve her posture and Thoracic strength in order to minimize upper back pain. Physical Therapy Plan Frequency and Duration Frequency of Treatment 2x/Week Duration of Treatment 3 weeks left Plan of Care Start Date 02/05/18 Plan of Care End Date 04/10/18 Therapeutic Interventions Therapeutic Interventions Home Exercise Program Manual Therapy Patient/Caregiver Education Self-Care/Home Management Soft Tissue Mobilization Therapeutic Exercises Modalities Cold Pack/Ice Massage Electric Stimulation Hot Packs Iontophoresis Ultrasound Next Visit Focus/Plan Next Visit Plan Check Wall to Tragus distance. Current Rehab: R shoulder impingement/posture, mobility restriction, Strengthening trunk extensors/ core, HEP as needed, cryotherapy. Progress as tolerated: HEP core, Postural stabilization, JMT, Trunk stretch & strengthening progression into ext. ROM for symmetry of C/S Rot & shoulder flexion. [ End ] Plan of Care Dates Plan of Care Start Date 02/05/18 Plan of Care End Date 04/16/18 Please Sign and Return: I have reviewed this Plan of Care and certify that the skilled therapy services above are required to meet the patient???s needs. Physician Signature Date Printed Name and Credentials Clinical Instructor Signature Printed Name and Credentials
--- NOTE | 2018-03-27 15:39 | PT.OTN ---
Current Diagnoses Impingement syndrome of right shoulder (03/27/18) Other symptoms and signs involving the musculoskeletal system (03/27/18) Physical Therapy Treatment Note PT-OP-A Visit Information Start: 02/26/18 11:31 Freq: Status: Active Protocol: Document 03/27/18 15:20 TMS (Rec: 03/27/18 15:39 TMS [email or web address]) Out-Patient Physical Therapy Visit Information Visit Information Visit Type Treatment Note Visit Note 09/19 Visit Start Time 12:30 Visit Stop Time 13:01 Total Visit Minutes 31 Visit Number 11 Number of MENTAL HEALTH THERAPIST Visits 1 PT-OP-C Subjective Start: 02/26/18 11:31 Freq: Status: Active Protocol: Document 03/27/18 15:20 TMS (Rec: 03/27/18 15:39 TMS [email or web address]) OP-PT Subjective Patient Comments Patient Comments Pt. excited to try aquatic therapy. States she's trying to be more aware of posture. PT-OP-K Range of Motion Start: 03/05/18 12:28 Freq: Status: Active Protocol: Document 03/19/18 11:18 LRN (Rec: 03/19/18 12:42 LRN [id number]) Cervical Spine Range of Motion Cervical Spine Active Rotation Left 78 Rotation Right 78 PT-OP-M Strength Start: 03/19/18 12:35 Freq: Status: Active Protocol: Document 03/19/18 11:18 LRN (Rec: 03/19/18 12:42 LRN [id number]) Trunk Strength Trunk Manual Muscle Testing Extension 3+ Fair+ PT-OP-Q Treatments Start: 02/26/18 11:31 Freq: Status: Active Protocol: Document 03/19/18 11:18 LRN (Rec: 03/19/18 12:34 LRN [id number]) Cardio Equipment Upper Body Ergometer (UBE) Duration (Minutes) 10 RPM 60 Seat Position 11 Height Head height 2 Therapeutic Exercises Supine Exercises 6 Supine Exercise Name Lifting knees to 90 deg's hip flex, Yellow ball btn feet Reps/Minutes 10 reps Comments Some training needed, pt moving slow and cautious. 5 Supine Exercise Name Shoulder flexion Isometrics Side bilateral Reps/Minutes 5 reps Comments On 1/2 roll: Holding 10 sec's 4 Supine Exercise Name Shoulder flex stretch Side bilateral Reps/Minutes 1 reps Comments On 1/2 roll, 60 sec holds 3 Supine Exercise Name Cervical R rotation active stretch Side right Reps/Minutes 5 reps 1 Supine Exercise Name Pectoralis Major stretch on 10/28 roll, followed by 10 Side bilateral Reps/Minutes 1 reps - 60 second stretch Comments Arms in 2 postions: Sides & Football Goal & overhead position Prone Exercises 1 Prone Exercise Name Alternate arm lifts with Deep Cervical Neck Flexor contraction Side bilateral Reps/Minutes 15 x reps Sidelying Exercises 1 Sidelying Exercise Name R thoracic rotation Side bilateral Reps/Minutes 15 2 Sidelying Exercise Name R thoracic rotation with resistance Side left Reps/Minutes 30 Standing Exercises 3 Standing Exercise Name Shoulder ext with deep C neck flexors Side bilateral Reps/Minutes 5 X Comments Arm ext & lifts off back Manual Therapy Treatment Joint Mobilizations 1 Joint Thoracic Direction PA Glides Grade III Reps/Duration 3' Comments Improved JMT of T2-T4, mild tenderness at T1-T4. No pain with T5-T6, pain at T7, T8. ~ T6 is R rotated PT-OP-R Modalities Start: 02/26/18 11:31 Freq: Status: Active Protocol: Document 03/19/18 11:18 LRN (Rec: 03/19/18 12:34 LRN [id number]) Hot Pack/Cold Pack Treatment Cold Pack Location Upper > Low back Patient Position Supine Treatment Duration (minutes) 10 Patient Tolerance Good PT-OP-S Aquatic Treatment Start: 03/27/18 15:20 Freq: Status: Active Protocol: Document 03/27/18 15:20 TMS (Rec: 03/27/18 15:39 TMS [email or web address]) Aquatics Treatment Pool Entry/Exit Pool Entry/Exit Method Stairs Assistance Independent Water Walking [place] December Water Level Chest Level Sideways Water Level Chest Level Comments With shoulder Ab/AD Backward Water Level Chest Level Comments With reverse breast stroke motion Forward Water Level Chest Level Comments With breast stroke motion Upper Extremity Exercises Elbow flex/ext Water Level Chest Level Shoulder IR/ER Water Level Chest Level Rowing Body Position Standing Water Level Chest Level Shoulder circles Body Position Standing Water Level Chest Level Shoulder rolls Water Level Chest Level [place] Activities [place] Activities Bicycle [place] Equipment Belt Duration 15 minutes Comments With U.E. breast stroke/ reverse breast stroke/shoulder flexion. PT-OP-T Assessment and Plan Start: 02/26/18 11:31 Freq: Status: Active Protocol: Document 03/27/18 15:20 TMS (Rec: 03/27/18 15:39 TMS [email or web address]) Physical Therapy Assessment Assessment Summary Assessment Pt. felt like it was easier to exercise in pool vs. land. Did feel like she was working hard, did feel slight tightness in right scapula area afterwards. Physical Therapy Plan Frequency and Duration Frequency of Treatment 2x/Week Duration of Treatment 2 weeks left Plan of Care Start Date 02/05/18 Plan of Care End Date 04/10/18 Next Visit Focus/Plan Next Note Type Treatment Note Next Visit Plan Check Wall to Tragus distance. Current Rehab: R shoulder impingement/posture, mobility restriction, Strengthening trunk extensors/ core, HEP as needed, cryotherapy. Progress as tolerated: HEP core, Postural stabilitation, JMT, Trunk stretch & strengthening progression into ext. ROM for symmetry of C/S Rot & shoulder flexion. Give aquatic exercise handout. [ End ] Please Sign and Return: I have reviewed this Plan of Care and certify that the skilled therapy services above are required to meet the patient?s needs. Physician Signature Date Printed Name and Credentials Clinical Instructor Signature Printed Name and Credentials
--- NOTE | 2018-04-13 15:40 | PT.OTN ---
Current Diagnoses Impingement syndrome of right shoulder (04/13/18) Other symptoms and signs involving the musculoskeletal system (04/13/18) Physical Therapy Treatment Note PT-OP-A Visit Information Start: 02/26/18 11:31 Freq: Status: Active Protocol: Document 04/13/18 11:15 LRN (Rec: 04/13/18 11:20 LRN [id number]) Out-Patient Physical Therapy Visit Information Visit Information Visit Type Progress Note Visit Note 10/19 Visit Start Time 11:15 Visit Stop Time 12:10 Total Visit Minutes 55 Visit Number 12 Number of OPAL POLISHER Visits 0 Evaluation Information Evaluation Date 02/05/18 PT-OP-C Subjective Start: 02/26/18 11:31 Freq: Status: Active Protocol: Document 04/13/18 11:15 LRN (Rec: 04/13/18 11:20 LRN [id number]) OP-PT Subjective Patient Comments Patient Comments Feeling an improvement, with less pain because when feeling pain she does stretches and it helps to relieve the pain. States pain at beginning was 7 -10/10, now is 4/10. Patient Reported Progress Improving OP-PT Pain Assessment Location Bilateral Upper Back Intensity 3 Pain Aggravating Factors Position Activity Standing Patient Stated Pain Goal No pain with entire load of dishes PT-OP-K Range of Motion Start: 03/05/18 12:28 Freq: Status: Active Protocol: Document 03/19/18 11:18 LRN (Rec: 03/19/18 12:42 LRN [id number]) Cervical Spine Range of Motion Cervical Spine Active Rotation Left 78 Rotation Right 78 PT-OP-M Strength Start: 03/19/18 12:35 Freq: Status: Active Protocol: Document 03/19/18 11:18 LRN (Rec: 03/19/18 12:42 LRN [id number]) Trunk Strength Trunk Manual Muscle Testing Extension 3+ Fair+ PT-OP-Q Treatments Start: 02/26/18 11:31 Freq: Status: Active Protocol: Document 04/13/18 11:15 LRN (Rec: 04/13/18 11:23 LRN [id number]) Cardio Equipment Upper Body Ergometer (UBE) Duration (Minutes) 10 RPM 60 Seat Position 11 Height Head height 3 Therapeutic Exercises Supine Exercises 6 Supine Exercise Name Lifting knees to 90 deg's hip flex, Yellow ball btn feet Reps/Minutes 10 reps Comments Some training needed, pt moving slow and cautious. 5 Supine Exercise Name Shoulder flexion Isometrics Side bilateral Reps/Minutes 5 reps Comments On 10/28 roll: Holding 10 sec's 2 Supine Exercise Name Core stabilization on 10/28 roll with hip flex movements Side bilateral Comments Training needed. 1 Supine Exercise Name Pectoralis Major stretch on 10/28 roll, followed by 10 Side bilateral Reps/Minutes 1 reps - 60 second stretch Comments Arms in 2 postions: Sides & Football Goal & overhead position Prone Exercises 1 Prone Exercise Name Alternate arm lifts with Deep Cervical Neck Flexor contraction Side bilateral Reps/Minutes 15 x reps Sidelying Exercises 1 Sidelying Exercise Name R thoracic rotation Side bilateral Reps/Minutes 15 Standing Exercises 5 Standing Exercise Name Shoulder end-range flexion with good posturing of neck/ thoracic region. Side bilateral Resistance Lev 1 T-Band Reps/Minutes 10x2 3 Standing Exercise Name Shoulder ext with deep C neck flexors Side bilateral Reps/Minutes 10 X Comments Arm ext & lifts off back Other Exercises 1 Other Exercise Name Hands/knees on T-Ball: Proper T/S positioning with arm lifts Side bilateral Reps/Minutes 10 x 2 each Manual Therapy Treatment Joint Mobilizations 1 Joint Thoracic Spine Direction PA Alonzo Grade III Reps/Duration 4' PT-OP-R Modalities Start: 02/26/18 11:31 Freq: Status: Active Protocol: Document 03/19/18 11:18 LRN (Rec: 03/19/18 12:34 LRN [id number]) Hot Pack/Cold Pack Treatment Cold Pack Location Upper > Low back Patient Position Supine Treatment Duration (minutes) 10 Patient Tolerance Good PT-OP-S Aquatic Treatment Start: 03/27/18 15:20 Freq: Status: Active Protocol: Document 03/27/18 15:20 TMS (Rec: 03/27/18 15:39 TMS [email or web address]) Aquatics Treatment Pool Entry/Exit Pool Entry/Exit Method Stairs Assistance Independent Water Walking [place] December Water Level Chest Level Sideways Water Level Chest Level Comments With shoulder Ab/AD Backward Water Level Chest Level Comments With reverse breast stroke motion Forward Water Level Chest Level Comments With breast stroke motion Upper Extremity Exercises Elbow flex/ext Water Level Chest Level Shoulder IR/ER Water Level Chest Level Rowing Body Position Standing Water Level Chest Level Shoulder circles Body Position Standing Water Level Chest Level Shoulder rolls Water Level Chest Level [place] Activities [place] Activities Bicycle Cross [place] Equipment Belt Duration 15 minutes Comments With U.E. breast stroke/ reverse breast stroke/shoulder flexion. PT-OP-T Assessment and Plan Start: 02/26/18 11:31 Freq: Status: Active Protocol: Document 04/13/18 11:15 LRN (Rec: 04/13/18 11:20 LRN [id number]) Physical Therapy Assessment Impairments Impairments Pain Posture ROM Strength Other Impairments HEP needed, core stabilization . Improve thoracic ext mobility. Wall to Tragus: 7/~18 cm ( Normal is 10 cm). Goals Three Impairment Decreased Thoracic muscle strength Skilled Nursing Goal (LTG) Increase Thoracic strength by no less than 1 grade for elimination of pain with washing of dishes. LTG Duration 05/14/18 Two Impairment Increased Thoracic Kyphosis Skilled Nursing Goal (LTG) Pt independent HEP/Self care program. LTG Duration 05/14/18 One Impairment Lacks appropriate home exercise program. Shelter Supervisor Goal (LTG) Pt educated in proper posturing to minimize thoracic kyphosis. LTG Duration Goal Met Progress Towards Goals Progress Towards Goals Progressing Toward Goals Progress Comments 1) Goal Met. Pt has been educated in proper posturing to minimize thoracic kyphosis. Assessment Summary Assessment Good improvement. Pt has good awareness of proper thoracic posturing. Difficulty maintaining proper posture. Weakness is present in thoracic extensors and mechanical dysfunction. Physical Therapy Plan Frequency and Duration Frequency of Treatment 1-2x/week Duration of Treatment 4 weeks Plan of Care Start Date 02/06/16 Plan of Care End Date 05/14/19 Therapeutic Interventions Therapeutic Interventions Home Exercise Program Manual Therapy Patient/Caregiver Education Self-Care/Home Management Soft Tissue Mobilization Therapeutic Exercises Modalities Cold Pack/Ice Massage Hot Packs Ultrasound Next Visit Focus/Plan Next Visit Plan Progress to independent HEP in 2-3 visits.
--- NOTE | 2018-04-13 15:41 | PT.OPPOC ---
Current Diagnoses Impingement syndrome of right shoulder (04/13/18) Other symptoms and signs involving the musculoskeletal system (04/13/18) Provider Visit Care Team Role Provider Type Merline Chou PA-C Family Provider Advanced Practioner Clinician Primary Care Provider Specialty: Medical Address: [address] [place] [address], [id number] Email: [email or web address] Mercy Morillo PA-C Attending Provider Advanced Practioner Clinician Specialty: Family Practice Address: [address] [place] [address], [phone] Email: [email or web address] Plan Of Care PT-OP-T Assessment and Plan Start: 02/26/18 11:31 Freq: Status: Active Protocol: Document 04/13/18 11:15 LRN (Rec: 04/13/18 11:20 LRN [id number]) Physical Therapy Assessment Impairments Impairments Pain Posture ROM Strength Other Impairments HEP needed, core stabilization . Improve thoracic ext mobility. Wall to Tragus: 7/~18 cm ( Normal is 10 cm). Goals Three Impairment Decreased Thoracic muscle strength Day Care Director Goal (LTG) Increase Thoracic strength by no less than 1 grade for elimination of pain with washing of dishes. LTG Duration 05/14/18 Two Impairment Increased Thoracic Kyphosis Fpc Goal (LTG) Pt independent HEP/Self care program. LTG Duration 05/14/18 One Impairment Lacks appropriate home exercise program. Day Care Director Goal (LTG) Pt educated in proper posturing to minimize thoracic kyphosis. LTG Duration Goal Met Progress Towards Goals Progress Towards Goals Progressing Toward Goals Progress Comments 1) Goal Met. Pt has been educated in proper posturing to minimize thoracic kyphosis. Assessment Summary Assessment Good improvement. Pt has good awareness of proper thoracic posturing. Difficulty maintaining proper posture. Weakness is present in thoracic extensors and mechanical dysfunction. Physical Therapy Plan Frequency and Duration Frequency of Treatment 1-2x/week Duration of Treatment 4 weeks Plan of Care Start Date 02/06/16 Plan of Care End Date 05/14/19 Therapeutic Interventions Therapeutic Interventions Home Exercise Program Manual Therapy Patient/Caregiver Education Self-Care/Home Management Soft Tissue Mobilization Therapeutic Exercises Modalities Cold Pack/Ice Massage Hot Packs Ultrasound Next Visit Focus/Plan Next Visit Plan Progress to independent HEP in 2-3 visits. Plan of Care Dates Plan of Care Start Date 02/06/16 Plan of Care End Date 05/14/19
--- NOTE | 2018-04-16 14:58 | PT.OTN ---
Current Diagnoses Impingement syndrome of right shoulder (04/16/18) Other symptoms and signs involving the musculoskeletal system (04/16/18) Physical Therapy Treatment Note PT-OP-A Visit Information Start: 02/26/18 11:31 Freq: Status: Active Protocol: Document 04/16/18 13:39 LRN (Rec: 04/16/18 13:42 LRN [id number]) Out-Patient Physical Therapy Visit Information Visit Information Visit Type Treatment Note Visit Note Visit Start Time 13:39 Visit Stop Time 14:40 Total Visit Minutes 61 Visit Number 13 Number of MORTGAGE PROCESSING CLERK Visits 0 Evaluation Information Evaluation Date 02/05/18 PT-OP-C Subjective Start: 02/26/18 11:31 Freq: Status: Active Protocol: Document 04/16/18 13:39 LRN (Rec: 04/16/18 13:42 LRN [id number]) OP-PT Subjective Patient Comments Patient Comments Doing the same. Exercising more often with less strain. Able to do dishes 15-20' and able to do more pots/pans than before PT-OP-K Range of Motion Start: 03/05/18 12:28 Freq: Status: Active Protocol: Document 03/19/18 11:18 LRN (Rec: 03/19/18 12:42 LRN [id number]) Cervical Spine Range of Motion Cervical Spine Active Rotation Left 78 Rotation Right 78 PT-OP-M Strength Start: 03/19/18 12:35 Freq: Status: Active Protocol: Document 04/16/18 13:39 LRN (Rec: 04/16/18 13:50 LRN [id number]) Trunk Strength Trunk Manual Muscle Testing Flexion 5 Normal Extension 5 Normal Rotation Left 4+ Good+ Rotation Right 4 Good Lateral Flexion Left 5 Normal Lateral Flexion Right 5 Normal Core Stabilization Noted: Thoracic weakness of trunk extensors as she gains mobility. PT-OP-Q Treatments Start: 02/26/18 11:31 Freq: Status: Active Protocol: Document 04/16/18 13:39 LRN (Rec: 04/16/18 13:50 LRN [id number]) Cardio Equipment Upper Body Ergometer (UBE) Duration (Minutes) 10 RPM 60 Seat Position 11 Height Head height 3 Therapeutic Exercises Supine Exercises 6 Supine Exercise Name Lifting knees to 90 deg's hip flex, Yellow ball btn feet Reps/Minutes 10 reps Comments Some training needed, pt moving slow and cautious. 5 Supine Exercise Name Shoulder flexion Isometrics Side bilateral Equipment Used 1/2 roll Reps/Minutes 10 reps Comments On 10/28 roll: Holding 10 sec's 2 Supine Exercise Name Core stabilization on 10/28 roll with hip flex movements Side bilateral Equipment Used Yellow kids ball Reps/Minutes 10x Comments Training needed. 1 Supine Exercise Name Pectoralis Major stretch on 10/28 roll, followed by 10 Side bilateral Equipment Used 1/2 roll Reps/Minutes 1 reps - 60 second stretch Comments Arms in 2 positions: Sides & Football Goal & overhead position Prone Exercises 3 Prone Exercise Name Lumbar flexion using hip flexors: On wedge/pillow under lower trunk Side bilateral Equipment Used Wedge, pillows Reps/Minutes 10x, holding 5 sec's 2 Prone Exercise Name Thoracic ext: On wedge, Equipment Used Wedge, pillows Reps/Minutes 10x2 Comments Holding 5 secs 1 Prone Exercise Name Modified: On wedge, LISA with Pillow under lower trunk: Arm lifts&T/S in ext Side bilateral Reps/Minutes 10x2 Sidelying Exercises 1 Sidelying Exercise Name R thoracic rotation Side bilateral Reps/Minutes 15 Other Exercises 1 Other Exercise Name Stopped due to wrist pain with ex PT-OP-R Modalities Start: 02/26/18 11:31 Freq: Status: Active Protocol: Document 04/16/18 13:39 LRN (Rec: 04/16/18 13:50 LRN [id number]) Hot Pack/Cold Pack Treatment Cold Pack Location Upper > Low back Patient Position Supine Treatment Duration (minutes) 10 Patient Tolerance Good Comments Supine: 1 pillow under head, knees on bolster. PT-OP-S Aquatic Treatment Start: 03/27/18 15:20 Freq: Status: Active Protocol: Document 03/27/18 15:20 TMS (Rec: 03/27/18 15:39 TMS [id number]) Aquatics Treatment Pool Entry/Exit Pool Entry/Exit Method Stairs Assistance Independent Water Walking [place] December Water Level Chest Level Sideways Water Level Chest Level Comments With shoulder Ab/AD Backward Water Level Chest Level Comments With reverse breast stroke motion Forward Water Level Chest Level Comments With breast stroke motion Upper Extremity Exercises Elbow flex/ext Water Level Chest Level Shoulder IR/ER Water Level Chest Level Rowing Body Position Standing Water Level Chest Level Shoulder circles Body Position Standing Water Level Chest Level Shoulder rolls Water Level Chest Level [place] Activities [place] Activities Bicycle [place] Equipment Belt Duration 15 minutes Comments With U.E. breast stroke/ reverse breast stroke/shoulder flexion. PT-OP-T Assessment and Plan Start: 02/26/18 11:31 Freq: Status: Active Protocol: Document 04/16/18 13:39 LRN (Rec: 04/16/18 13:42 LRN [id number]) Physical Therapy Assessment Goals Three Impairment Decreased Thoracic muscle strength Dev Manager Goal (LTG) Increase Thoracic strength by no less than 1 grade for elimination of pain with washing of dishes. LTG Duration 05/14/18 Two Impairment Increased Thoracic Kyphosis Dev Manager Goal (LTG) Pt independent HEP/Self care program. LTG Duration 05/14/18 One Impairment Lacks appropriate home exercise program. Dev Manager Goal (LTG) Pt educated in proper posturing to minimize thoracic kyphosis. LTG Duration Goal Met Progress Towards Goals Progress Comments 3) Pt trunk strength is 5/5 without pain complaints. Pt has improved time with doing dishes to 15-20' prior to onset of pain. Pt not yet able to complete dishes without onset of pain. Assessment Summary Assessment Pt posture much improved in sitting & standing. When verbally cued she is able to extend at thoracic region, post therapy. Physical Therapy Plan Frequency and Duration Frequency of Treatment 1-2x/week Duration of Treatment 3 weeks Plan of Care Start Date 02/06/16 Plan of Care End Date 05/14/19 Next Visit Focus/Plan Next Note Type Treatment Note Next Visit Plan Pool therapy to improve thoracic ext strength and hip flexor/abdominal strength. Pt will then transition to more home ex, therapy in clinic 1x/ week for 1-2 weeks.
--- NOTE | 2018-04-22 16:36 | PT.OTN ---
Current Diagnoses Impingement syndrome of right shoulder (04/22/18) Other symptoms and signs involving the musculoskeletal system (04/22/18) Physical Therapy Treatment Note PT-OP-A Visit Information Start: 02/26/18 11:31 Freq: Status: Active Protocol: Document 04/22/18 14:30 TMS (Rec: 04/22/18 16:36 TMS [id number]) Out-Patient Physical Therapy Visit Information Visit Information Visit Type Treatment Note Visit Start Time 13:45 Visit Stop Time 14:25 Total Visit Minutes 40 Visit Number 14 Number of HARD CANDY BATCH MIXER Visits 1 PT-OP-C Subjective Start: 02/26/18 11:31 Freq: Status: Active Protocol: Document 04/22/18 14:30 TMS (Rec: 04/22/18 16:36 TMS [email or web address]) OP-PT Subjective Patient Comments Patient Comments Pt. happy to be in the water. States she's gotton to be very aware of her posture with ADL 's. PT-OP-K Range of Motion Start: 03/05/18 12:28 Freq: Status: Active Protocol: Document 03/19/18 11:18 LRN (Rec: 03/19/18 12:42 LRN [id number]) Cervical Spine Range of Motion Cervical Spine Active Rotation Left 78 Rotation Right 78 PT-OP-M Strength Start: 03/19/18 12:35 Freq: Status: Active Protocol: Document 04/16/18 13:39 LRN (Rec: 04/16/18 13:50 LRN [id number]) Trunk Strength Trunk Manual Muscle Testing Flexion 5 Normal Extension 5 Normal Rotation Left 4+ Good+ Rotation Right 4 Good Lateral Flexion Left 5 Normal Lateral Flexion Right 5 Normal Core Stabilization Noted: Thoracic weakness of trunk extensors as she gains mobility. PT-OP-Q Treatments Start: 02/26/18 11:31 Freq: Status: Active Protocol: Document 04/16/18 13:39 LRN (Rec: 04/16/18 13:50 LRN [id number]) Cardio Equipment Upper Body Ergometer (UBE) Duration (Minutes) 10 RPM 60 Seat Position 11 Height Head height 3 Therapeutic Exercises Supine Exercises 6 Supine Exercise Name Lifting knees to 90 deg's hip flex, Yellow ball btn feet Reps/Minutes 10 reps Comments Some training needed, pt moving slow and cautious. 5 Supine Exercise Name Shoulder flexion Isometrics Side bilateral Equipment Used 1/2 roll Reps/Minutes 10 reps Comments On 10/28 roll: Holding 10 sec's 2 Supine Exercise Name Core stabilization on 10/28 roll with hip flex movements Side bilateral Equipment Used Yellow kids ball Reps/Minutes 10x Comments Training needed. 1 Supine Exercise Name Pectoralis Major stretch on 10/28 roll, followed by 10 Side bilateral Equipment Used 1/2 roll Reps/Minutes 1 reps - 60 second stretch Comments Arms in 2 postions: Sides & Football Goal & overhead position Prone Exercises 3 Prone Exercise Name Lumbar flexion using hip flexors: On wedge/pillow under lower trunk Side bilateral Equipment Used Wedge, pillows Reps/Minutes 10x, holding 5 sec's 2 Prone Exercise Name Thoracic ext: On wedge, Equipment Used Wedge, pillows Reps/Minutes 10x2 Comments Holding 5 secs 1 Prone Exercise Name Modified: On wedge, LISA with Pillow under lower trunk: Arm lifts&T/S in ext Side bilateral Reps/Minutes 10x2 Sidelying Exercises 1 Sidelying Exercise Name R thoracic rotation Side bilateral Reps/Minutes 15 Other Exercises 1 Other Exercise Name Stopped due to wrist pain with ex PT-OP-R Modalities Start: 02/26/18 11:31 Freq: Status: Active Protocol: Document 04/16/18 13:39 LRN (Rec: 04/16/18 13:50 LRN [id number]) Hot Pack/Cold Pack Treatment Cold Pack Location Upper > Low back Patient Position Supine Treatment Duration (minutes) 10 Patient Tolerance Good Comments Supine: 1 pillow under head, knees on bolster. PT-OP-S Aquatic Treatment Start: 03/27/18 15:20 Freq: Status: Active Protocol: Document 04/22/18 14:30 TMS (Rec: 04/22/18 16:36 TMS [email or web address]) Aquatics Treatment Pool Entry/Exit Pool Entry/Exit Method Stairs Assistance Independent Water Walking Sideways Water Level Chest Level Comments With shoulder Ab/AD Backward Water Level Chest Level Comments With reverse breast stroke motion Forward Water Level Chest Level Comments With breast stroke motion Upper Extremity Exercises 1 Details Shoulder shrugs with resistance Body Position Standing Water Level Neck Level Equipment small barbells Shoulder IR/ER Water Level Chest Level Reps/Duration x 10 reps Rowing Body Position Standing Water Level Chest Level Equipment UE paddles Comments At chest and waist level Shoulder circles Body Position Standing Water Level Chest Level [employer] Activities [employer] Activities Bicycle Cross Country Equipment Belt Duration 15 minutes Comments With U.E. breast stroke/ reverse breast stroke/shoulder flexion.Also rowing PT-OP-T Assessment and Plan Start: 02/26/18 11:31 Freq: Status: Active Protocol: Document 04/22/18 14:30 TMS (Rec: 04/22/18 16:36 TMS [email or web address]) Physical Therapy Assessment Assessment Summary Assessment Pt. very aware of posture with exercises, was fatigued after treatment but tolerated well. Physical Therapy Plan Frequency and Duration Frequency of Treatment 1-2x/week Duration of Treatment 3 weeks Plan of Care Start Date 02/06/16 Plan of Care End Date 05/14/19 Next Visit Focus/Plan Next Visit Plan Pool therapy to improve thoracic ext strength and hip flexor/abdominal strength. Pt will then transition to more home ex, therapy in clinic 1x/ week for 1-2 weeks.
--- NOTE | 2018-05-07 13:38 | PT.OTN ---
Current Diagnoses Impingement syndrome of right shoulder (05/07/18) Other symptoms and signs involving the musculoskeletal system (05/07/18) Physical Therapy Treatment Note PT-OP-A Visit Information Start: 02/26/18 11:31 Freq: Status: Active Protocol: Document 05/07/18 10:35 LRN (Rec: 05/07/18 11:14 LRN [id number]) Out-Patient Physical Therapy Visit Information Visit Information Visit Type Treatment Note Visit Note Visit Start Time 10:35 Visit Stop Time 11:29 Total Visit Minutes 54 Visit Number 15 Number of FIELD HORTICULTURAL SPECIALTY GROWER Visits 0 Evaluation Information Evaluation Date 02/05/18 PT-OP-C Subjective Start: 02/26/18 11:31 Freq: Status: Active Protocol: Document 05/07/18 10:35 LRN (Rec: 05/07/18 11:14 LRN [id number]) OP-PT Subjective Patient Comments Patient Comments Burning in mid back when here at PT. States she did scapular pinches and had pain relief. Is able to do dishes for 10-15' prior to needing to stop to do ex's to relieve back pain. States she is more aware of her posture Patient Reported Progress Improving PT-OP-K Range of Motion Start: 03/05/18 12:28 Freq: Status: Active Protocol: Document 03/19/18 11:18 LRN (Rec: 03/19/18 12:42 LRN [id number]) Cervical Spine Range of Motion Cervical Spine Active Rotation Left 78 Rotation Right 78 PT-OP-M Strength Start: 03/19/18 12:35 Freq: Status: Active Protocol: Document 05/07/18 10:35 LRN (Rec: 05/07/18 13:36 LRN [id number]) Trunk Strength Trunk Manual Muscle Testing Testing Position Sitting Flexion 5 Normal Extension 4+ Good+ Rotation Left 5 Normal Rotation Right 5 Normal Shoulder Strength Shoulder Manual Muscle Testing Right Flexion 5 Normal Left Flexion 5 Normal PT-OP-Q Treatments Start: 02/26/18 11:31 Freq: Status: Active Protocol: Document 05/07/18 10:35 LRN (Rec: 05/07/18 11:14 LRN [id number]) Cardio Equipment Upper Body Ergometer (UBE) Duration (Minutes) 8 RPM 60 Seat Position 13 Height Head height 3 Other Arms 0 Therapeutic Exercises Supine Exercises 5 Supine Exercise Name Shoulder flexion Isometrics Side bilateral Equipment Used 1/2 roll Reps/Minutes 10 reps Comments On / roll: Holding 10 sec's 1 Supine Exercise Name Pectoralis Major stretch on 10/28 roll, followed by 10 Side bilateral Equipment Used /2 roll Reps/Minutes 1 reps - 60 second stretch Comments Arms in 2 postions: Sides & Football Goal & overhead position Standing Exercises 5 Standing Exercise Name Shoulder end-range flexion with good posturing of neck/ thoracic region. Side bilateral Resistance Lev 1 T-Band Reps/Minutes 10x3 4 Standing Exercise Name Reverse Fly Side bilateral Reps/Minutes 10x3 Comments hips mk flex, upper T/S ext & abd tightening Self-Care/Home Management Treatment Education Patient Education Home Exercise Program Activities Self-Care/Home Management Activities Issued and Reviewed HEP of T- Band ex's: Scapular pinches at different arm hgt levels and for Lower trap strengthening. PT-OP-R Modalities Start: 02/26/18 11:31 Freq: Status: Active Protocol: Document 05/07/18 10:35 LRN (Rec: 05/07/18 11:14 LRN [id number]) Hot Pack/Cold Pack Treatment Cold Pack Location Upper > Low back Patient Position Supine Treatment Duration (minutes) 10 Patient Tolerance Good Comments Supine: 1 pillow under head, knees on bolster. PT-OP-S Aquatic Treatment Start: 03/27/18 15:20 Freq: Status: Active Protocol: Document 04/22/18 14:30 TMS (Rec: 04/22/18 16:36 TMS [email or web address]) Aquatics Treatment Pool Entry/Exit Pool Entry/Exit Method Stairs Assistance Independent Water Walking Sideways Water Level Chest Level Comments With shoulder Ab/AD Backward Water Level Chest Level Comments With reverse breast stroke motion Forward Water Level Chest Level Comments With breast stroke motion Upper Extremity Exercises 1 Details Shoulder shrugs with resistence Body Position Standing Water Level Neck Level Equipment small barbells Shoulder IR/ER Water Level Chest Level Reps/Duration x 10 reps Rowing Body Position Standing Water Level Chest Level Equipment UE paddles Comments At chest and waist level Shoulder circles Body Position Standing Water Level Chest Level [place] Activities [place] Activities Bicycle Cross Country Equipment Belt Duration 15 minutes Comments With U.E. breast stroke/ reverse breast stroke/shoulder flexion.Also rowing PT-OP-T Assessment and Plan Start: 02/26/18 11:31 Freq: Status: Active Protocol: Document 05/07/18 10:35 LRN (Rec: 05/07/18 11:14 LRN [id number]) Physical Therapy Assessment Impairments Impairments Pain Posture ROM Strength Other Impairments Decreased core stabilization. Decreased thoracic ext mobility. Wall to Tragus: 7/ ~18 cm (Normal is 10 cm). Goals Four Impairment Upper Back Pain with washing of dishes after 10-15' Merchandise Adjustment Clerk Goal (LTG) Pt will have improved posture and thoracic strength with ability to wash dishes for > 15 minutes prior to onset of back pain. Three Impairment Decreased Thoracic muscle strength Merchandise Adjustment Clerk Goal (LTG) Increase Thoracic strength by no less than 1 grade for elimination of pain with washing of dishes. LTG Duration Goal met for increased Thoracic strength Two Impairment Increased Thoracic Kyphosis Merchandise Adjustment Clerk Goal (LTG) Pt independent HEP/Self care program. LTG Duration 06/25/18 One Impairment Lacks appropriate home exercise program. Skilled Nursing Goal (LTG) Pt educated in proper posturing to minimize thoracic kyphosis. LTG Duration Goal Met Progress Towards Goals Progress Towards Goals Progressing Toward Goals Progress Comments 3) Pt trunk strength is 5/5 without pain complaints. Pt has improved time with doing dishes to 15-20' prior to onset of pain. Pt not yet able to complete dishes without onset of pain. Assessment Summary Assessment Pt shoulder/trunk strength has improved with an increase in function (ability to wash dishes), but is not able to complete the task completely before onset of back pain. She has shown much improvment in her posture and no longer complains of shoulder pain, primarily upper back pain. Further therapy to progress the pt's HEP intermittently is recommended for the next month with expected DC to a HEP next month. Physical Therapy Plan Frequency and Duration Frequency of Treatment 1x/2weeks Duration of Treatment 6 weeks Plan of Care Start Date 05/14/18 Plan of Care End Date 06/25/18 Therapeutic Interventions Therapeutic Interventions Home Exercise Program Manual Therapy Patient/Caregiver Education Self-Care/Home Management Soft Tissue Mobilization Therapeutic Exercises Modalities Cold Pack/Ice Massage Hot Packs Ultrasound Next Visit Focus/Plan Next Note Type Treatment Note Next Visit Plan Progress pt's HEP towards improving postural control ( Wall to Tragus), decreasing upper back pain with increased core and thoracic strength. DC in 1-2 visits with frequency every 2-3 weeks.
--- NOTE | 2018-05-07 13:39 | PT.OPPOC ---
Current Diagnoses Impingement syndrome of right shoulder (05/07/18) Other symptoms and signs involving the musculoskeletal system (05/07/18) Provider Visit Care Team Role Provider Type Merline Chou PA-C Family Provider Advanced Communications Program Manager Primary Care Provider Specialty: Medical Address: [address] [place] [address], [id number] Email: [email or web address] Mercy Morillo PA-C Attending Provider Advanced Communications Program Manager Specialty: Family Practice Address: [address] [place] [address], [id number] Email: [email or web address] Plan Of Care PT-OP-T Assessment and Plan Start: 02/26/18 11:31 Freq: Status: Active Protocol: Document 05/07/18 10:35 LRN (Rec: 05/07/18 11:14 LRN [id number]) Physical Therapy Assessment Impairments Impairments Pain Posture ROM Strength Other Impairments Decreased core stabilization. Decreased thoracic ext mobility. Wall to Tragus: 7/ ~18 cm (Normal is 10 cm). Goals Four Impairment Upper Back Pain with washing of dishes after 10-15' High Density Talc Coater Operator Goal (LTG) Pt will have improved posture and thoracic strength with ability to wash dishes for > 15 minutes prior to onset of back pain. Three Impairment Decreased Thoracic muscle strength Fpc Goal (LTG) Increase Thoracic strength by no less than 1 grade for elimination of pain with washing of dishes. LTG Duration Goal met for increased Thoracic strength Two Impairment Increased Thoracic Kyphosis Fpc Goal (LTG) Pt independent HEP/Self care program. LTG Duration 06/25/18 One Impairment Lacks appropriate home exercise program. High Density Talc Coater Operator Goal (LTG) Pt educated in proper posturing to minimize thoracic kyphosis. LTG Duration Goal Met Progress Towards Goals Progress Towards Goals Progressing Toward Goals Progress Comments 3) Pt trunk strength is 5/5 without pain complaints. Pt has improved time with doing dishes to 15-20' prior to onset of pain. Pt not yet able to complete dishes without onset of pain. Assessment Summary Assessment Pt shoulder/trunk strength has improved with an increase in function (ability to wash dishes), but is not able to complete the task completely before onset of back pain. She has shown much improvment in her posture and no longer complains of shoulder pain, primarily upper back pain. Further therapy to progress the pt's HEP intermittently is recommended for the next month with expected DC to a HEP next month. Physical Therapy Plan Frequency and Duration Frequency of Treatment 1x/2weeks Duration of Treatment 6 weeks Plan of Care Start Date 05/14/18 Plan of Care End Date 06/25/18 Therapeutic Interventions Therapeutic Interventions Home Exercise Program Manual Therapy Patient/Caregiver Education Self-Care/Home Management Soft Tissue Mobilization Therapeutic Exercises Modalities Cold Pack/Ice Massage Hot Packs Ultrasound Next Visit Focus/Plan Next Note Type Treatment Note Next Visit Plan Progress pt's HEP towards improving postural control ( Wall to Tragus), decreasing upper back pain with increased core and thoracic strength. DC in 1-2 visits with frequency every 2-3 weeks. Plan of Care Dates Plan of Care Start Date 05/14/18 Plan of Care End Date 06/25/18 Please Sign and Return: I have reviewed this Plan of Care and certify that the skilled therapy services above are required to meet the patient?s needs. Physician Signature Date Printed Name and Credentials Clinical Instructor Signature Printed Name and Credentials
--- NOTE | 2018-06-16 15:37 | PT.OTN ---
Current Diagnoses Impingement syndrome of right shoulder (06/16/18) Other symptoms and signs involving the musculoskeletal system (06/16/18) Physical Therapy Treatment Note PT-OP-A Visit Information Start: 02/26/18 11:31 Freq: Status: Active Protocol: Document 06/16/18 12:45 LRN (Rec: 06/16/18 13:26 LRN [id number]) Out-Patient Physical Therapy Visit Information Visit Information Visit Type Treatment Note Visit Note Visit Start Time 12:45 Visit Stop Time 13:40 Total Visit Minutes 55 Visit Number 16 Number of VOICE STUDIES DIRECTOR Visits 0 Evaluation Information Evaluation Date 02/05/18 PT-OP-C Subjective Start: 02/26/18 11:31 Freq: Status: Active Protocol: Document 06/16/18 12:45 LRN (Rec: 06/16/18 13:26 LRN [id number]) OP-PT Subjective Patient Comments Patient Comments Have been exercising, not as much as when she was coming frequently. Have been walking . Able to do dishes at different times 20-30', sometimes the same at 15'. Can do more if stop and stretch. Patient Reported Progress Feels Patient Questionnaires Quick Dash- Upper Extremity Quick Dash UE Score 13.63 Quick Dash UE Impairment 1 to 19% Impaired (Score 1-19) OP-PT Pain Assessment Pain Assessment Grid Paper Pain Assessment Grid Completed Yes Location Bilateral Upper Back Pain Location Details R posterior neck and upper back at the level of scapula Intensity 1 Scale Used Numeric (1 - 10) PT-OP-K Range of Motion Start: 03/05/18 12:28 Freq: Status: Active Protocol: Document 03/19/18 11:18 LRN (Rec: 03/19/18 12:42 LRN [id number]) Cervical Spine Range of Motion Cervical Spine Active Rotation Left 78 Rotation Right 78 PT-OP-M Strength Start: 03/19/18 12:35 Freq: Status: Active Protocol: Document 06/16/18 12:45 LRN (Rec: 06/16/18 13:26 LRN [id number]) Trunk Strength Trunk Manual Muscle Testing Testing Position Sitting Flexion 5 Normal Extension 5 Normal Rotation Left 5 Normal Rotation Right 5 Normal Shoulder Strength Shoulder Manual Muscle Testing Right Flexion 5 Normal Left Flexion 5 Normal PT-OP-Q Treatments Start: 02/26/18 11:31 Freq: Status: Active Protocol: Document 06/16/18 12:45 LRN (Rec: 06/16/18 13:26 LRN [id number]) Cardio Equipment Upper Body Ergometer (UBE) Duration (Minutes) 8 RPM 60 Seat Position 14 Height Head height 3 Other Arms 0 Therapeutic Exercises Supine Exercises 6 Supine Exercise Name Lifting knees to 90 deg's hip flex, Yellow ball btn feet Reps/Minutes 10 reps Comments Some training needed, pt moving slow and cautious. 5 Supine Exercise Name Shoulder flexion Isometrics Side bilateral Equipment Used 1/2 roll Reps/Minutes 10 reps Comments On 10/28 roll: Holding 10 sec's 2 Supine Exercise Name Core stabilization on 10/28 roll with hip flex movements Side bilateral Equipment Used Red 2.2# ball Reps/Minutes 15x Comments Training needed. 1 Supine Exercise Name Pectoralis Major stretch on / roll, followed by 10 Side bilateral Equipment Used 1/2 roll Reps/Minutes 1 reps - 60 second stretch Comments Arms in 2 postions: Sides & Football Goal & overhead position Prone Exercises 2 Prone Exercise Name Thoracic ext: On wedge, Equipment Used Wedge, pillows Reps/Minutes 10x2 Comments Holding 5 secs Sidelying Exercises 1 Sidelying Exercise Name R thoracic rotation Side bilateral Reps/Minutes 15 Self-Care/Home Management Treatment Education Patient Education Home Exercise Program Activities Self-Care/Home Management Activities Issued and reviewed Thoracic and lumbar ext ex in prone ( arm/leg lifts). Reviewed Home anterior chest stretches and core strengthening. PT-OP-R Modalities Start: 02/26/18 11:31 Freq: Status: Active Protocol: Document 06/16/18 12:45 LRN (Rec: 06/16/18 13:26 LRN [id number]) Hot Pack/Cold Pack Treatment Cold Pack Location Upper > Low Back Patient Position Supine Treatment Duration (minutes) 10 Patient Tolerance Good Comments Supine: 1 pillow under head, knees on bolster. PT-OP-S Aquatic Treatment Start: 03/27/18 15:20 Freq: Status: Active Protocol: Document 04/22/18 14:30 TMS (Rec: 04/22/18 16:36 TMS [email or web address]) Aquatics Treatment Pool Entry/Exit Pool Entry/Exit Method Stairs Assistance Independent Water Walking Sideways Water Level Chest Level Comments With shoulder Ab/AD Backward Water Level Chest Level Comments With reverse breast stroke motion Forward Water Level Chest Level Comments With breast stroke motion Upper Extremity Exercises 1 Details Shoulder shrugs with resistence Body Position Standing Water Level Neck Level Equipment small barbells Shoulder IR/ER Water Level Chest Level Reps/Duration x 10 reps Rowing Body Position Standing Water Level Chest Level Equipment UE paddles Comments At chest and waist level Shoulder circles Body Position Standing Water Level Chest Level [place] Activities [place] Activities Bicycle Cross Country Equipment Belt Duration 15 minutes Comments With U.E. breast stroke/ reverse breast stroke/shoulder flexion.Also rowing PT-OP-T Assessment and Plan Start: 02/26/18 11:31 Freq: Status: Active Protocol: Document 06/16/18 12:45 LRN (Rec: 06/16/18 13:26 LRN [id number]) Physical Therapy Assessment Impairments Impairments Pain Posture Other Impairments Wall to Tragus: 7/~18 cm ( Normal is 10 cm). Goals Four Impairment Upper Back Pain with washing of dishes after 10-15' Dot Compliance Coordinator Goal (LTG) Pt will have improved posture and thoracic strength with ability to wash dishes for > 15 minutes prior to onset of back pain. LTG Duration GOAL MET Three Impairment Decreased Thoracic muscle strength Dot Compliance Coordinator Goal (LTG) Increase Thoracic strength by no less than 1 grade for elimination of pain with washing of dishes. LTG Duration Goal met for increased Thoracic strength Two Impairment Increased Thoracic Kyphosis Dot Compliance Coordinator Goal (LTG) Pt independent HEP/Self care program. LTG Duration 06/16/18 GOAL MET One Impairment Lacks appropriate home exercise program. Dot Compliance Coordinator Goal (LTG) Pt educated in proper posturing to minimize thoracic kyphosis. LTG Duration GOAL MET Assessment Summary Assessment The pt trunk strength is 5/5 without pain. She has improved functional use of her UE's to 15-20' at a time and she shows good awareness of proper posturing. The pt is now ready to continue with a home program. Physical Therapy Plan Discharge Physical Therapy Discharge Reasons Goals Met Discharge Comments Pt needs to continue to be aware of proper posturing of her neck/back and continue to work on improving strength of her upper back and to reduce her forward head posturing. The pt may need therapy in the future for postural strengthening to control upper back pain.
--- NOTE | 2018-06-16 15:38 | PT.OPDS ---
Current Diagnoses Impingement syndrome of right shoulder (06/16/18) Other symptoms and signs involving the musculoskeletal system (06/16/18) Provider Visit Care Team Role Provider Type Merline Chou PA-C Family Provider Advanced Plastics Engineer Primary Care Provider Specialty: Medical Address: [address] [place] [id number] Email: [email or web address] Morillo PA-C Attending Provider Advanced Plastics Engineer Specialty: Family Practice Address: [address] [place] [address], [id number] Email: [email or web address] Visit Number Visit Number [id number] Discharge Summary PT-OP-C Subjective Start: 02/26/18 11:31 Freq: Status: Active Protocol: Document 06/16/18 12:45 LRN (Rec: 06/16/18 13:26 LRN [id number]) OP-PT Subjective Patient Comments Patient Comments Have been exercising, not as much as when she was coming frequently. Have been walking . Able to do dishes at different times 20-30', sometimes the same at 15'. Can do more if stop and stretch. Patient Reported Progress Feels Patient Questionnaires Quick Dash- Upper Extremity Quick Dash UE Score 13.63 Quick Dash UE Impairment 1 to 19% Impaired (Score 1-19) OP-PT Pain Assessment Pain Assessment Grid Paper Pain Assessment Grid Completed Yes Location Bilateral Upper Back Pain Location Details R posterior neck and upper back at the level of scapula Intensity 1 Scale Used Numeric (1 - 10) PT-OP-K Range of Motion Start: 03/05/18 12:28 Freq: Status: Active Protocol: Document 03/19/18 11:18 LRN (Rec: 03/19/18 12:42 LRN [id number]) Cervical Spine Range of Motion Cervical Spine Active Rotation Left 78 Rotation Right 78 PT-OP-M Strength Start: 03/19/18 12:35 Freq: Status: Active Protocol: Document 06/16/18 12:45 LRN (Rec: 06/16/18 13:26 LRN [id number]) Trunk Strength Trunk Manual Muscle Testing Testing Position Sitting Flexion 5 Normal Extension 5 Normal Rotation Left 5 Normal Rotation Right 5 Normal Shoulder Strength Shoulder Manual Muscle Testing Right Flexion 5 Normal Left Flexion 5 Normal PT-OP-T Assessment and Plan Start: 02/26/18 11:31 Freq: Status: Active Protocol: Document 06/16/18 12:45 LRN (Rec: 06/16/18 13:26 LRN [id number]) Physical Therapy Assessment Impairments Impairments Pain Posture Other Impairments Wall to Tragus: 7/~18 cm ( Normal is 10 cm). Goals Four Impairment Upper Back Pain with washing of dishes after 10-15' Fdc Goal (LTG) Pt will have improved posture and thoracic strength with ability to wash dishes for > 15 minutes prior to onset of back pain. LTG Duration GOAL MET Three Impairment Decreased Thoracic muscle strength Fdc Goal (LTG) Increase Thoracic strength by no less than 1 grade for elimination of pain with washing of dishes. LTG Duration Goal met for increased Thoracic strength Two Impairment Increased Thoracic Kyphosis Superintendent Recreation Goal (LTG) Pt independent HEP/Self care program. LTG Duration 06/16/18 GOAL MET One Impairment Lacks appropriate home exercise program. Fdc Goal (LTG) Pt educated in proper posturing to minimize thoracic kyphosis. LTG Duration GOAL MET Assessment Summary Assessment The pt trunk strength is 5/5 without pain. She has improved functional use of her UE's to 15-20' at a time and she shows good awareness of proper posturing. The pt is now ready to continue with a home program. Physical Therapy Plan Discharge Physical Therapy Discharge Reasons Goals Met Discharge Comments Pt needs to continue to be aware of proper posturing of her neck/back and continue to work on improving strength of her upper back and to reduce her forward head posturing. The pt may need therapy in the future for postural strengthening to control upper back pain.
== END 2018-08-07 15:42 ==
LOC: PHYS 12:45
PROVIDERS: Family Provider Physician Assistant; PCP Physician Assistant; Visit Provider Physician Assistant
DX: M75.41 Impingement syndrome of right shoulder (principal); R29.898 Other symptoms and signs involving the musculoskeletal system
CPT/HCPCS: 29240; 97010; 97110; 97113; 97140

== ENCOUNTER → 2019-04-09 07:40 | Outpatient (CLI) | payer OTHER, MEDICAID, SELFPAY ==
[2019-04-09 08:15] LABS: Add Manual Diff / Slide Review NO; Basophils Absolute Auto 0 /uL (0-100); Basophils Percent Auto 0.4 % (0-2); Eosinophils Absolute Auto 0 /uL (0-450); Eosinophils Percent Auto 0.9 % (2-4); Hematocrit 37.9 % (36-46); Hemoglobin 13.4 g/dL (12.0-16.0); Lymphocytes Absolute Auto 1200 /uL (1100-4500); Lymphocytes Percent Auto 22.5 % (25-40); Mean Corpuscular HGB Conc 35.2 % (30-36); Mean Corpuscular Hemoglobin 32.7 PG (26-34); Mean Corpuscular Volume 92.9 fL (80-100); Monocytes Absolute Auto 500 /uL (0-900); Monocytes Percent Auto 8.7 % (3-14); Neutrophils Absolute Auto 3600 /uL (1500-7000); Neutrophils Percent Auto 67.5 % (50-75); Platelet Count 284 X10^3/uL (150-400); Red Blood Cell Count 4.08 X10^6/uL (4.0-5.2); Red Cell Distribution Width 12.1 % (11.6-14.8); White Blood Cell Count 5.3 X10^3/uL (4.5-11.0)
[2019-04-09 08:56] LABS: HEMOLYSIS < 15 (0-50); Iron 106 ug/dL (37-170)
[2019-04-09 09:01] LABS: Alanine Aminotransferase 35 IU/L (9-52); Albumin 4.8 g/dL (3.5-5.0); Albumin Globulin Ratio 1.5 (1.0-2.8); Alkaline Phosphatase 74 U/L (38-126); Aspartate Aminotransferase 25 IU/L (14-36); BUN Creatinine Ratio 13.3 (6-22); Bilirubin Total 0.6 mg/dL (0.2-1.3); Blood Urea Nitrogen 12 mg/dL (7-17); Calcium 10.2 mg/dL (8.4-10.2); Carbon Dioxide 27 mmol/L (22-32); Chloride 103 mmol/L (98-107); Estimated Glomerular Filt Rate > 60.0 mL/min (>60); Globulin 3.1 g/dL (1.7-4.1); Glucose 110 mg/dL (70-100); HEMOLYSIS < 15 (0-50); Magnesium 2.1 mg/dL (1.6-2.3); Potassium 3.9 mmol/L (3.4-5.1); Sodium 140 mmol/L (137-145); Total Protein 7.9 g/dL (6.3-8.2)
[2019-04-09 09:07] LABS: Percent Iron Saturation 31 % (15-50); Total Iron Binding Capacity 338 ug/dL (265-497); Transferrin 277 mg/dL (206-381)
[2019-04-09 09:28] LABS: TSH w/ Reflex to FT4 1.34 uIU/mL (0.47-4.68)
[2019-04-09 09:33] LABS: Ferritin 57.7 ng/mL (11.1-264)
[2019-04-09 09:47] LABS: Vitamin B12 365 pg/mL (239-931)
[2019-04-12 09:20] LABS: Lamotrigine Lamictal 2.7 mcg/mL (4.0-18.0)
== END ==
PROVIDERS: PCP Physician Assistant; Visit Provider Nurse Practitioner Family
DX: R42 Dizziness and giddiness (principal); Z51.81 Encounter for therapeutic drug level monitoring
CPT/HCPCS: 36415; 80053; 80175; 82607; 82728; 83540; 83550; 83735; 84443; 85025

== ENCOUNTER 2019-09-23 09:54 | Emergency (ER) | payer OTHER, MEDICAID, SELFPAY ==
[2019-09-23 10:00] VITALS: BP 122/78; PULSE 75; RESP 16; TEMP 36.9; O2SAT 100
[2019-09-23 11:16] VITALS: BP 114/78; PULSE 72; RESP 20; O2SAT 100
--- NOTE | 2019-09-23 11:54 | ED.SKABFB ---
HPI - Skin/Abscess/Foreign Bdy <Gabrielle Patelmer, STAGE TECHNICIAN-BC - Last Filed: 09/23/19 12:04> General Chief complaint: Skin/Abscess/Foreign Body Stated complaint: possible facial infection Time Seen by Provider: 09/23/19 11:22 Source: patient Mode of arrival: Ambulatory Limitations: no limitations History of Present Illness HPI narrative: The patient is a 53-year-old female nonsmoker with history of prediabetes who presents with a chief complaint of a process of both facial or dental infection. Few days ago she noticed a ?parsons at her mouth, after a dental cleaning. Swelling of the left side of her face yesterday. She has not taken anything for pain or applied ice. She states that she has history of a dental infection that went on for several weeks and required IV antibiotics, so she wanted to come in with for got that bad. She denies any fevers nausea vomiting or diarrhea but complains of generalized malaise. She does have a history of penicillin allergy, states that she developed when she was a child and she ?almost .She states that she does not feel an abscess on the left side of her face, but rather feels generalized ?puffiness. Related Data Home Medications Medication Instructions Recorded Confirmed Respironics Dreamstation CPAP #1 ea 03/24/19 08/12/19 albuterol sulfate 90 mcg/actuation 2 puff INHALATION Q6H PRN 03/24/19 08/12/19 aerosol inhaler clotrimazole 1 % topical cream 1 applictn TOPICAL BID PRN #0 gram 03/24/19 08/12/19 mometasone-formoterol HFA 100 2 puff INHALATION .DAILY gram 03/24/19 08/12/19 mcg-5 mcg/actuation aerosol inhaler diphenhydramine HCl 2 % topical gel 1 applictn TOP BID 08/12/19 08/12/19 ketotifen fumarate 0.025 % (0.035 1 drop EYE-BOTH BID PRN ml 08/12/19 08/12/19 %) eye drops triamcinolone acetonide 55 mcg 1 spray NASAL DAILY 08/12/19 08/12/19 nasal spray aerosol Previous Rx's Medication Instructions Recorded clindamycin HCl 300 mg PO QID #40 cap 09/23/19 Allergies Allergy/AdvReac Type Severity Reaction Status Date / Time Penicillins [PENICILLINS] Allergy Severe I WAS Verified 08/12/19 09:57 ONLY 6 YRS OLD AND WAS TOLD IT WAS ANUM LIKE A COMA buspirone [BUSPIRONE] Allergy Unknown eye tick Verified 08/12/19 09:57 oxybutynin [OXYBUTYNIN] AdvReac Intermediate dryness of Verified 08/12/19 09:57 mouth palpitations pork derived (porcine) AdvReac Unknown bloating, Verified 08/12/19 10:34 abdominal pressure Review of Systems <BILL Segovia - Last Filed: 09/23/19 12:04> Review of Systems Narrative: GENERAL: Denies chills, fatigue, malaise, fever, sweats. HEENT: See HPI RESPIRATORY: Denies dyspnea, cough, wheezing, hemoptysis, sputum. CARDIOVASCULAR: Denies chest pain, palpitations, orthopnea, edema, GASTROINTESTINAL: Denies nausea, vomiting, abdominal pain, diarrhea, constipation, melena. : Denies dysuria, frequency, incontinence, hematuria, urinary retention. MUSCULOSKELETAL: denies weakness, joint pain, or bony pain SKIN: See HPI NEUROLOGIC: Denies weakness, headache, numbness, change in speech, confusion, seizures, incoordination. PSYCHIATRIC: No concerning psychosocial issues. 12 point review of systems is negative except for those stated above Patient History <BLIL Segovia - Last Filed: 09/23/19 12:04> Medical History Anxiety disorder (Chronic) Asthma (Chronic) Depression (Chronic) Episodic mood disorder (Chronic 05/27/16) Excessive daytime sleepiness (Resolved) Family conflict (Inactive) Hyperlipidemia (Chronic 01/21/13) Left ankle sprain (Inactive) Muscle strain of chest wall (Inactive) Obstructive sleep apnea syndrome (Chronic) Posttraumatic stress disorder (Chronic) Primary insomnia (Chronic) Seizure (Inactive) Unspecified mood [affective] disorder (Inactive) Unspecified mood [affective] disorder (Inactive) Social History number of children: 2 lives independently: Yes caregiver/support person: No Smoking Status: Never smoker Exam <BILL Segovia - Last Filed: 09/23/19 12:04> Narrative Exam Narrative: GENERAL: This is a well-nourished, well-developed patient, in no acute distress HEAD: Atraumatic. Normocephalic. No temporal or scalp tenderness. EYES: Pupils equal round and reactive. Extraocular motions intact. No scleral icterus. No injection or drainage. ENT: Nose without bleeding, purulent drainage or septal hematoma. Throat without erythema, tonsillar hypertrophy or exudate. Uvula midline. Airway patent. Pain to palpation left lower gum line was slight erythema. No palpable or visible abscess left lower gumline. NECK: Trachea midline. No JVD or lymphadenopathy. Supple, nontender, no meningeal signs. CARDIOVASCULAR: Regular rate and rhythm without murmurs, gallops, or rubs. RESPIRATORY: Clear to auscultation. Breath sounds equal bilaterally. No wheezes, rales, or rhonchi. No cough. No increased respiratory effort. No accessory muscle GASTROINTESTINAL: Abdomen soft, non-tender, nondistended. No hepato-splenomegaly, or palpable masses. No guarding. EXTREMITIES: No clubbing, cyanosis, or edema. No joint tenderness, effusion, or edema noted. BACK: Nontender without deformity or crepitance. No flank tenderness. NEURO: AOx3. SKIN: Small pustule lateral to mouth left side. 2 x 2 cm diffuse swelling palpated left cheek. No palpable fluctuance or absence. No overlying erythema or drainage. Initial Vital Signs Initial Vital Signs: Vital Signs Temperature 98.5 F 09/23/19 10:00 Pulse Rate 75 09/23/19 10:00 Respiratory Rate 16 09/23/19 10:00 Blood Pressure 122/78 09/23/19 10:00 Pulse Oximetry 100 09/23/19 10:00 <Berkley Benavidez MD - Last Filed: 09/23/19 13:05> Initial Vital Signs Initial Vital Signs: Vital Signs Temperature 98.5 F 09/23/19 10:00 Pulse Rate 75 09/23/19 10:00 Respiratory Rate 16 09/23/19 10:00 Blood Pressure 122/78 09/23/19 10:00 Pulse Oximetry 100 09/23/19 10:00 Course <BILL Segovia - Last Filed: 09/23/19 12:04> Vital Signs Vital signs: Vital Signs - 8 hr 09/23/19 10:00 09/23/19 11:16 Temperature 98.5 F Pulse Rate 75 72 Respiratory Rate 16 20 Blood Pressure 122/78 Blood Pressure [Right Arm] 114/78 Pulse Oximetry 100 100 <Berkley Benavidez MD - Last Filed: 09/23/19 13:05> Vital Signs Vital signs: Vital Signs - 8 hr 09/23/19 10:00 09/23/19 11:16 Temperature 98.5 F Pulse Rate 75 72 Respiratory Rate 16 20 Blood Pressure 122/78 Blood Pressure [Right Arm] 114/78 Pulse Oximetry 100 100 MDM - Skin/Abscess/Foreign Bdy <RA Segovia-BC - Last Filed: 09/23/19 12:04> MDM Narrative Medical decision making narrative: The patient is a 53-year-old female who presents with a chief complaint of a possible facial infection. She started having pain and swelling after a dental cleaning last week. She has no signs of systemic illness, is afebrile hemodynamically stable. She has pain to palpation erythema and swelling noted of her left lower jaw. She has no palpable abscess or fluctuance cough or rather palpable swelling. She is allergic to penicillin comes was started on clindamycin I encouraged follow-up with primary care provider as well as her dentist. Encouraged ice and or heat, [id number] pain medications as needed and able. Discussed taking antibiotic with probiotic or yogurt. Patient has no questions or concerns upon discharge and states understanding of return precautions as well as follow-up care. Discharge Plan Departure Patient Disposition: Home Clinical Impression: Dental infection Discharge Date/Time: 09/23/19 12:11 Instructions: Tooth Abscess, DI for Dental Pain Activity Restrictions/Additional Instructions: I have sent in a prescription for an antibiotic. I sent this to [facility] Please take this with a probiotic or yogurt. Please use [id number] medications as needed and able for pain and/or swelling as well as Heat packs and ice packs. Please come back to emergency department for any acute concerns such as inability to keep down fluids I suggest that you follow-up with her primary care provider as well as your dentist. Prescriptions: New clindamycin HCl 300 mg capsule 300 mg PO QID Qty: 40 RF: 0 No Action Dulera 100-5 mcg/actuation HFA aerosol inhaler 2 puff INHALATION .DAILY RF: 0 ketotifen fumarate [[place]] 0.025 % (0.035 %) drops 1 drop EYE-BOTH BID PRNRF: 0 Benadryl Itch Stopping 2 % gel 1 applictn TOP BID RF: 0 triamcinolone acetonide 55 mcg aerosol,spray 1 spray NASAL DAILY RF: 0 clotrimazole 1 % cream 1 applictn Topical BID PRNQty: 0 RF: 0 albuterol sulfate 90 mcg/actuation HFA aerosol inhaler 2 puff INHALATION Q6H PRNRF: 0 (DME) Respironics Dreamstation CPAP Qty: 1 RF: 0 Referrals: Merline Chou PA-C [Primary Care Provider] -
--- NOTE | 2019-09-23 12:03 | PC.NURSE ---
swelling is noted to left lower face, through half of lips. not reddened.
== END 2019-09-23 12:11 | disposition home or self-care (01) ==
PROVIDERS: Emergency Provider Nurse Practitioner Family; PCP Physician Assistant
DX: K04.7 Periapical abscess without sinus (principal)
CPT/HCPCS: 99282; 99283

== ENCOUNTER → 2019-10-15 08:02 | Outpatient (CLI) | payer OTHER, MEDICAID, SELFPAY ==
[2019-10-15 09:08] LABS: Add Manual Diff / Slide Review NO; Basophils Absolute Auto 0 /uL (0-100); Basophils Percent Auto 0.6 % (0-2); Eosinophils Absolute Auto 100 /uL (0-450); Eosinophils Percent Auto 2.8 % (2-4); Hemoglobin 13.3 g/dL (12.0-16.0); Lymphocytes Absolute Auto 1300 /uL (1100-4500); Lymphocytes Percent Auto 25.3 % (25-40); Mean Corpuscular Hemoglobin 32.6 PG (26-34); Monocytes Absolute Auto 600 /uL (0-900); Monocytes Percent Auto 11.3 % (3-14); Neutrophils Absolute Auto 3000 /uL (1500-7000); Platelet Count 317 X10^3/uL (150-400); Red Blood Cell Count 4.07 X10^6/uL (4.0-5.2); Red Cell Distribution Width 12.7 % (11.6-14.8)
[2019-10-15 09:18] LABS: Hemoglobin A1C% w Est Avg Glu 5.5 % (4.0-6.0)
[2019-10-15 09:40] LABS: Alanine Aminotransferase 39 IU/L (<35); Albumin 4.5 g/dL (3.5-5.0); Albumin Globulin Ratio 1.6 (1.0-2.8); Alkaline Phosphatase 72 U/L (38-126); Aspartate Aminotransferase 27 IU/L (14-36); BUN Creatinine Ratio 23.3 (6-22); Bilirubin Total 0.5 mg/dL (0.2-1.3); Blood Urea Nitrogen 21 mg/dL (7-17); Calcium 9.5 mg/dL (8.4-10.2); Carbon Dioxide 25 mmol/L (22-32); Chloride 105 mmol/L (98-107); Cholesterol 224 mg/dL (140-199); Estimated Glomerular Filt Rate > 60.0 mL/min (>60); Globulin 2.9 g/dL (1.7-4.1); Glucose 96 mg/dL (70-100); HDL Cholesterol 38 mg/dL (40-60); HEMOLYSIS < 15 (0-50); LDL Cholesterol Calculated 163 mg/dL (<100); Potassium 4.1 mmol/L (3.4-5.1); Sodium 140 mmol/L (137-145); Total Protein 7.4 g/dL (6.3-8.2); Triglycerides 113 mg/dL (35-150)
[2019-10-15 10:03] LABS: Thyroid Stimulating Hormone 1.94 uIU/mL (0.47-4.68)
[2019-10-15 10:22] LABS: Vitamin B12 677 pg/mL (239-931)
== END ==
PROVIDERS: PCP Physician Assistant; Visit Provider Physician Assistant
DX: E53.8 Deficiency of other specified B group vitamins (principal); E78.5 Hyperlipidemia, unspecified; R53.83 Other fatigue; R73.01 Impaired fasting glucose
CPT/HCPCS: 36415; 80053; 80061; 82607; 83036; 84443; 85025

== ENCOUNTER → 2019-12-06 10:13 | Outpatient (CLI) | payer OTHER, MEDICAID, SELFPAY ==
[2019-12-06 11:32] LABS: Cholesterol 214 mg/dL (140-199); HDL Cholesterol 35 mg/dL (40-60); LDL Cholesterol Calculated 148 mg/dL (<100); Triglycerides 156 mg/dL (35-150)
== END ==
PROVIDERS: PCP Physician Assistant; Referring Provider Physician Assistant; Visit Provider Physician Assistant
DX: E78.5 Hyperlipidemia, unspecified (principal)
CPT/HCPCS: 36415; 80061

== ENCOUNTER → 2020-05-05 14:18 | Outpatient (CLI) | payer OTHER, MEDICAID, SELFPAY ==
--- NOTE | 2020-05-05 14:20 | DI.RAD.S_ITS ---
PROCEDURE: XR SHOULDER RT MIN 2V INDICATIONS: right shoulder pain TECHNIQUE: 3 views of the shoulder were acquired. COMPARISON: None. FINDINGS: Bones: No fractures or dislocations. No suspicious bony lesions. Visualized ribs appear intact. Mild joint narrowing with periarticular osteophyte formation. Soft tissues: No suspicious soft tissue calcifications. IMPRESSION: Mild acromioclavicular and glenohumeral joint degeneration. Dictated by: Chuy Mcpherson [facility] Interpreted: Robert Arenas MD on 05/05/2020 at 14:50 Approved by: Robert Arenas M.D. on 05/05/2020 at 15:52
== END ==
PROVIDERS: PCP Nurse Practitioner Family; Referring Provider Nurse Practitioner Family; Visit Provider Nurse Practitioner Family
DX: M25.511 Pain in right shoulder (principal); M19.011 Primary osteoarthritis, right shoulder
CPT/HCPCS: 73030

== ENCOUNTER → 2020-05-17 08:40 | Outpatient (CLI) | payer OTHER, MEDICAID, SELFPAY ==
[2020-05-17 10:05] LABS: Hematocrit 38.3 % (36-46); Hemoglobin 12.7 g/dL (12.0-16.0); Mean Corpuscular HGB Conc 33.2 % (30-36); Mean Corpuscular Hemoglobin 31.8 PG (26-34); Mean Corpuscular Volume 95.5 fL (80-100); Platelet Count 303 X10^3/uL (150-400); Red Blood Cell Count 4.01 X10^6/uL (4.0-5.2); Red Cell Distribution Width 12.5 % (11.6-14.8); White Blood Cell Count 5.2 X10^3/uL (4.5-11.0)
[2020-05-17 10:43] LABS: Alanine Aminotransferase 33 IU/L (<35); Albumin 4.5 g/dL (3.5-5.0); Albumin Globulin Ratio 1.7 (1.0-2.8); Alkaline Phosphatase 77 U/L (38-126); Aspartate Aminotransferase 30 IU/L (14-36); BUN Creatinine Ratio 21.3 (6-22); Bilirubin Total 0.4 mg/dL (0.2-1.3); Blood Urea Nitrogen 16 mg/dL (7-17); Calcium 9.6 mg/dL (8.4-10.2); Carbon Dioxide 25 mmol/L (22-32); Chloride 103 mmol/L (98-107); Cholesterol 196 mg/dL (140-199); Estimated Glomerular Filt Rate > 60.0 mL/min (>60); Globulin 2.7 g/dL (1.7-4.1); Glucose 91 mg/dL (70-100); HDL Cholesterol 40 mg/dL (40-60); HEMOLYSIS 16 (0-50); LDL Cholesterol Calculated 131 mg/dL (<100); Potassium 4.5 mmol/L (3.4-5.1); Sodium 137 mmol/L (137-145); Total Protein 7.2 g/dL (6.3-8.2); Triglycerides 126 mg/dL (35-150)
== END ==
PROVIDERS: PCP Nurse Practitioner Family; Referring Provider Nurse Practitioner Family; Visit Provider Nurse Practitioner Family
DX: J45.909 Unspecified asthma, uncomplicated (principal); E78.5 Hyperlipidemia, unspecified
CPT/HCPCS: 36415; 80053; 80061; 85027

== ENCOUNTER → 2020-05-31 11:17 | Outpatient (CLI) | payer OTHER, MEDICAID, SELFPAY ==
[2020-05-31 13:52] LABS: Urine N gonorrhoeae NOT DETECTED
[2020-05-31 13:53] LABS: Urine Chlamydia NOT DETECTED
[2020-05-31 16:00] LABS: HIV 1 & 2 Ab/Ag 4th Gen Combo NEGATIVE (NEGATIVE)
[2020-06-01 05:39] LABS: RPR Screen Non Reactive (Non Reactive)
[2020-06-01 06:36] LABS: HSV 2 IGG AB < 0.91 index (0.00-0.90); HSV1IGG < 0.91 index (0.00-0.90)
== END ==
PROVIDERS: PCP Nurse Practitioner Family; Referring Provider Nurse Practitioner Family; Visit Provider Nurse Practitioner Family
DX: Z20.2 Contact with and (suspected) exposure to infections with a predominantly sexual mode of transmission (principal); N76.5 Ulceration of vagina
CPT/HCPCS: 36415; 86592; 86695; 86696; 87389; 87491; 87591

== ENCOUNTER → 2020-06-07 12:06 | Outpatient (CLI) | payer OTHER, MEDICAID, SELFPAY ==
--- NOTE | 2020-06-07 12:07 | DI.MG.S_ITS ---
BILATERAL DIGITAL SCREENING MAMMOGRAM 3D/2D WITH CAD: 06/07/2020 CLINICAL: Routine screening. Family history of breast cancer. Comparison is made to exams dated: 07/24/2016 mammogram, 01/29/2013 mammogram, and 08/16/2011 mammogram - [facility]. There are scattered fibroglandular elements in both breasts. Current study was also evaluated with a Computer Aided Detection (CAD) system. No significant masses, calcifications, or other findings are seen in either breast. There has been no significant interval change. IMPRESSION: NEGATIVE There is no mammographic evidence of malignancy. A 1 year screening mammogram is recommended. This exam was interpreted at Station ID: [id number]. NOTE: For mammograms, a report in lay terms will be sent to the patient. Approximately 15% of breast malignancies will not be visualized mammographically. In the management of a palpable breast mass, a negative mammogram must not discourage biopsy of a clinically suspicious lesion. Electronically Signed By: Fab olivia/rhoda:06/07/2020 14:54:59 letter sent: Normal Exam ACR BI-RADS Category 1: Negative [id number]
== END ==
PROVIDERS: PCP Nurse Practitioner Family; Referring Provider Nurse Practitioner Family; Visit Provider Nurse Practitioner Family
DX: Z12.31 Encounter for screening mammogram for malignant neoplasm of breast (principal); Z80.3 Family history of malignant neoplasm of breast
CPT/HCPCS: 77063; 77067

== ENCOUNTER 2020-08-04 18:50 | Emergency (ER) | payer OTHER, MEDICAID, SELFPAY ==
[2020-08-04 19:12] VITALS: BP 149/72; PULSE 49; RESP 18; TEMP 36.6; O2SAT 98; BMI 35.5
--- NOTE | 2020-08-04 20:38 | ED.BACK ---
HPI - Back Pain/Injury <Laurel Cavazos PA-C - Last Filed: 08/05/20 00:05> General Chief Complaint: Back Pain/Injury Stated Complaint: PAIN SHOULDERS BACK NOT ABLE TO KEEP THINGS DOWN Time Seen by Provider: 08/04/20 20:26 Source: patient Limitations: no limitations History of Present Illness HPI Narrative: 54-year-old woman with a history of seizure disorder and rotator cuff arthropathy chronic shoulder and upper back pain presents to the emergency department complaining of upper back pain on the right. Patient states that she was attempting to adjust a couch early this morning at home and pulled on it a little while later she realized she may have done some damage as she was starting to have some pain behind her shoulder blade. She attended her physical therapy appointment this afternoon, while they were working she suddenly had severe intense pain that caused her to vomit and retch. She had severe difficulty moving and significant intermittent pain that was positional after this occurred and went home however she had 2 more similar episodes with vomiting due to severe pain and presented to the emergency department. She denies abdominal pain, low back pain, headache, fever, chills, nausea, vomiting, diarrhea, new numbness or weakness of her arms or any other symptoms MD Complaint: back pain and back injury Onset (ago): hour(s) (7) Duration: constant and intermittent Similar Symptoms Previously: Yes Location: thoracic spine Severity: severe (Especially with certain movements) Quality: aching and spasming Radiation: other (Right shoulder) Severity scale (1-10): 8 Relieving factors: other (Ice) Exacerbating factors: movement Context: other (After pulling and lifting, during physical therapy) Associated symptoms: denies other symptoms Treatments prior to arrival: cold therapy Related Data Home Medications Medication Instructions Recorded Confirmed Respironics Dreamstation CPAP #1 ea 03/24/19 07/26/20 albuterol sulfate 90 mcg/actuation 2 puff INHALATION Q6H PRN 03/24/19 07/26/20 aerosol inhaler ketotifen fumarate 0.025 % (0.035 1 drop EYE-BOTH BID PRN ml 08/12/19 07/26/20 %) eye drops diphenhydramine HCl 2 % topical gel 1 applictn TOP BID PRN 09/28/19 07/26/20 mecobalamin (vitamin B12) 5,000 mcg PO 09/28/19 07/26/20 mcg disintegrating tablet fluticasone propionate 50 1 spray NASAL DAILY PRN 12/08/19 07/26/20 mcg/actuation nasal spray,suspension cholecalciferol (vitamin D3) 50 50 mcg PO DAILY 05/10/20 07/26/20 mcg (2,000 unit) capsule olive leaf extract 250 mg capsule 250 mg PO BID cap 05/31/20 07/26/20 Previous Rx's Medication Instructions Recorded ondansetron 4 mg PO Q6H PRN #20 tab 08/04/20 oxycodone-acetaminophen 1 tab PO Q6H PRN #14 tab 08/04/20 Allergies Allergy/AdvReac Type Severity Reaction Status Date / Time Penicillins [PENICILLINS] Allergy Severe I WAS Verified 08/04/20 19:12 ONLY 6 YRS OLD AND WAS TOLD IT WAS ANUM LIKE A COMA formoterol [From Dulera] Allergy Intermediate seizure Verified 08/04/20 19:12 mometasone furoate Allergy Intermediate seizure Verified 08/04/20 19:12 [From Dulera] buspirone [BUSPIRONE] Allergy Unknown eye tick Verified 08/04/20 19:12 oxybutynin [OXYBUTYNIN] AdvReac Intermediate dryness of Verified 08/04/20 19:12 mouth palpitations pork derived (porcine) AdvReac Unknown bloating, Verified 08/04/20 19:12 abdominal pressure karaya gum AdvReac Intermediate upset Uncoded 08/04/20 19:12 stomach zucchini AdvReac Intermediate upset Uncoded 08/04/20 19:12 stomach Review of Systems <Laurel Cavazos PA-C - Last Filed: 08/05/20 00:05> Review of Systems Narrative: GENERAL: Denies chills, fatigue, malaise, fever, sweats. HEENT: Denies sinus pain, ear pain, sore throat, difficulty swallowing, dizziness. RESPIRATORY: Denies dyspnea, cough, wheezing, hemoptysis, sputum. CARDIOVASCULAR: Denies chest pain, palpitations, orthopnea, edema, GASTROINTESTINAL: Denies nausea, vomiting, abdominal pain, diarrhea, constipation, melena. : Denies dysuria, frequency, incontinence, hematuria, urinary retention. MUSCULOSKELETAL: denies weakness, endorses acute on chronic right shoulder pain and upper back pain, no other reported joint pain, or bony pain SKIN: Denies rash, skin lesions, or other NEUROLOGIC: Denies weakness, headache, numbness, change in speech, confusion, seizures, incoordination. PSYCHIATRIC: No concerning psychosocial issues. 12 point review of systems is negative except for those stated above ROS Unobtainable: All systems reviewed & are unremarkable except as noted in HPI and below Patient History <Laurel Cavazos PA-C - Last Filed: 08/05/20 00:05> Medical History (Updated 08/04/20 @ 22:18 by Laurel Cavazos PA-C) Anxiety disorder (Chronic) Asthma (Chronic 1971) Biceps muscle strain (Acute) Cervical ectropion (Acute) Depression (Chronic 1994) Encounter for routine gynecological examination (Acute) Episodic mood disorder (Chronic 05/27/16) Excessive daytime sleepiness (Resolved) Family conflict (Inactive) Hyperlipidemia (Chronic 01/21/13) Left ankle sprain (Inactive) Muscle strain of chest wall (Inactive) Obstructive sleep apnea syndrome (Chronic 11/2016) Posttraumatic stress disorder (Chronic ~2014) Primary insomnia (Chronic) Rotator cuff arthropathy (Acute ~02/2020) Seizure (Inactive) Seizure disorder (Acute 1994) Unspecified mood [affective] disorder (Inactive) Unspecified mood [affective] disorder (Inactive) Vaginal ulcer (Acute) Social History number of children: 2 lives independently: Yes caregiver/support person: No Smoking Status: Never smoker Smoking Status: Never smoker Substance Use Type: does not use Exam <Laurel Cavazos PA-C - Last Filed: 08/05/20 00:05> Narrative Exam Narrative: GENERAL: 54 year old obese patient appears stated age. Well-nourished, well-developed patient, in mild distress. HEAD: Atraumatic. Normocephalic. EYES: Pupils equal round and reactive. Extraocular motions intact. No scleral icterus. No injection or drainage. ENT: Nose without bleeding, purulent drainage. Throat without erythema, tonsillar hypertrophy or exudate. Airway patent. NECK: Trachea midline. Non tender CARDIOVASCULAR: Regular rate and rhythm without murmurs, gallops, or rubs. RESPIRATORY: Clear to auscultation. Breath sounds equal bilaterally. No wheezes, rales, or rhonchi. GASTROINTESTINAL: Abdomen soft, non-tender, nondistended. EXTREMITIES: There is muscle tenderness in the area of the rhomboid, medial to the scapula as well as below the scapula on the right side, there is increased pain with range of motion, reaching overhead, strength is 5/5 bilaterally upper extremities, sensation is intact. No other edema or joint tenderness. BACK: Nontender without deformity or crepitance. No flank tenderness. NEURO: AOx3. SKIN: No rash or erythema of visible areas Initial Vital Signs Initial Vital Signs: Vital Signs Temperature 97.9 F 08/04/20 19:12 Pulse Rate 49 L 08/04/20 19:12 Respiratory Rate 18 08/04/20 19:12 Blood Pressure 149/72 H 08/04/20 19:12 Pulse Oximetry 98 08/04/20 19:12 <Sonja Paulino MD - Last Filed: 08/05/20 00:26> Initial Vital Signs Initial Vital Signs: Vital Signs Temperature 97.9 F 08/04/20 19:12 Pulse Rate 49 L 08/04/20 19:12 Respiratory Rate 18 08/04/20 19:12 Blood Pressure 149/72 H 08/04/20 19:12 Pulse Oximetry 98 08/04/20 19:12 Scores <Laurel Cavazos PA-C - Last Filed: 08/05/20 00:05> GCS Kamryn coma scale eye opening: Spontaneous Kamryn coma scale verbal response: Orientated Kamryn coma scale motor response: Obey commands Kamryn coma scale total score: 15 Course <Laurel Cavazos PA-C - Last Filed: 08/05/20 00:05> Orders Ordered: Discontinued Medications Ketorolac Tromethamine (Toradol) 15 mg IM NOW ONE Stop: 08/04/20 21:23 Last Admin: 08/04/20 21:52 Dose: 15 mg Documented by: CARMEN Ondansetron HCl (Zofran) 4 mg IM NOW ONE Stop: 08/04/20 21:23 Last Admin: 08/04/20 21:53 Dose: Not Given Documented by: CARMEN Ondansetron HCl (Zofran Odt) 4 mg SL NOW ONE Stop: 08/04/20 21:48 Last Admin: 08/04/20 21:52 Dose: 4 mg Documented by: CARMEN Oxycodone/Acetaminophen (Percocet 5/325) 1 tab PO NOW ONE Stop: 08/04/20 21:34 Last Admin: 08/04/20 21:51 Dose: 1 tab Documented by: CARMEN Vital Signs Vital signs: Vital Signs - 8 hr 08/04/20 19:12 08/04/20 22:49 Temperature 97.9 F Pulse Rate 49 L 50 L Respiratory Rate 18 15 Blood Pressure 149/72 H 117/56 L Pulse Oximetry 98 100 <Sonja Paulino MD - Last Filed: 08/05/20 00:26> Orders Ordered: Discontinued Medications Ketorolac Tromethamine (Toradol) 15 mg IM NOW ONE Stop: 08/04/20 21:23 Last Admin: 08/04/20 21:52 Dose: 15 mg Documented by: CARMEN Ondansetron HCl (Zofran) 4 mg IM NOW ONE Stop: 08/04/20 21:23 Last Admin: 08/04/20 21:53 Dose: Not Given Documented by: CARMEN Ondansetron HCl (Zofran Odt) 4 mg SL NOW ONE Stop: 08/04/20 21:48 Last Admin: 08/04/20 21:52 Dose: 4 mg Documented by: CARMEN Oxycodone/Acetaminophen (Percocet 5/325) 1 tab PO NOW ONE Stop: 08/04/20 21:34 Last Admin: 08/04/20 21:51 Dose: 1 tab Documented by: CARMEN Vital Signs Vital signs: Vital Signs - 8 hr 08/04/20 19:12 08/04/20 22:49 Temperature 97.9 F Pulse Rate 49 L 50 L Respiratory Rate 18 15 Blood Pressure 149/72 H 117/56 L Pulse Oximetry 98 100 MDM - Back Pain/Injury <Laurel Cavazos PA-C - Last Filed: 08/05/20 00:05> Differential Diagnosis Differential diagnosis: Likely thoracic back pain and other (Thoracic back strain, shoulder strain, acute on chronic back pain) Medical Records Attestation: I reviewed the patient's medical records. MDM Narrative Medical decision making narrative: 54-year-old woman with chronic shoulder pain and upper back pain presents to the emergency department complaining of acute on chronic shoulder and upper back pain. Sustained an injury after lifting and pulling earlier this morning which was exacerbated during physical therapy session this afternoon causing her to have severe pain and associated nausea and vomiting episodes. No red flag symptoms. Patient's symptoms are controlled in the emergency department with Toradol, 1 Percocet and Zofran. Imaging and labs are not obtained, I have low concern for acute or life-threatening process, believe that she is suffering from a acute muscle strain. Advised her to use heat and ice, she is given a short course of pain medicine, as well as antinausea medicine, advised follow-up with physical therapy in her primary care. Emergency return precautions provided, all questions answered Discharge Plan Departure Patient Disposition: Home Clinical Impression: Acute thoracic myofascial strain Qualifiers: Encounter type: initial encounter Qualified Code(s): S29.019A - Strain of muscle and tendon of unspecified wall of thorax, initial encounter Discharge Date/Time: 08/04/20 22:52 Instructions: DI for Muscle Strain, DI for Back Spasm Activity Restrictions/Additional Instructions: Thank you for letting us be part of your care in the emergency department today. I do think that you sustained a strain of the muscle a knee your back with the lifting that you are doing and this is unfortunately worsened during her physical therapy session today. It definitely seems to be improving here in the emergency department and you have not had any ongoing issues with the nausea and vomiting associated with your severe pain. I did provide a prescription for you for an antinausea medicine as well as some pain medicine short-term, it is important for you to follow-up with your primary care provider and also touch base with your physical therapist to update them on how you are doing. I would recommend continuing with her physical therapy as it has been helpful for you and will likely continue to be so. If you do have new or concerning symptoms please do not hesitate to seek medical care. Prescriptions: New ondansetron 4 mg tablet,disintegrating 4 mg PO Q6H PRN (Reason: nausea and vomiting) Qty: 20 RF: 0 oxycodone-acetaminophen 5-325 mg tablet 1 tab PO Q6H PRN (Reason: pain) Qty: 14 RF: 0 No Action ketotifen fumarate [[place]] 0.025 % (0.035 %) drops 1 drop EYE-BOTH BID PRNRF: 0 Benadryl 2 % gel 1 applictn TOP BID PRNRF: 0 fluticasone propionate 50 mcg/actuation spray,suspension 1 spray NASAL DAILY PRNRF: 0 olive leaf extract 250 mg capsule 250 mg PO BID RF: 0 cholecalciferol (vitamin D3) 50 mcg (2,000 unit) capsule 50 mcg PO DAILY RF: 0 mecobalamin (vitamin B12) 5,000 mcg tablet,disintegrating PO RF: 0 albuterol sulfate 90 mcg/actuation HFA aerosol inhaler 2 puff INHALATION Q6H PRNRF: 0 (DME) Respironics Dreamstation CPAP Qty: 1 RF: 0 Referrals: Candi [place] ARNP [Primary Care Provider] - <Sonja Paulino MD - Last Filed: 08/05/20 00:26> Cosign ED Attending Cosignature Attestation: I was immediately available in the department for consultation throughout this patient's visit. I agree with documentation as above. Sonja Paulino MD
--- NOTE | 2020-08-04 20:42 | PC.NURSE ---
Pt reports she has had chronic upper back pain and has been working with physical therapy to help reduce the pain. was trying to recline couch and felt twinge in back. then at physical therapy reports pain increased causing nausea. has had multiple emesis today related to the pain in back.
[2020-08-04] MEDS: OXYCODONE/ACETAMINOPHEN 5/325 TABLET 1 TAB PO (21:51)
[2020-08-04] MEDS: KETOROLAC 60 MG/2 ML VIAL 15 MG IM (21:52)
[2020-08-04] MEDS: ONDANSETRON 4 MG ODT SL (21:52)
[2020-08-04 22:49] VITALS: BP 117/56; PULSE 50; RESP 15; O2SAT 100
== END 2020-08-04 22:52 | disposition home or self-care (01) ==
PROVIDERS: Emergency Provider Student in an Organized Health Care Education/Training Program; PCP Nurse Practitioner Family
DX: S29.019A Strain of muscle and tendon of unspecified wall of thorax, initial encounter (principal)
CPT/HCPCS: 96372; 99283; J1885

== ENCOUNTER → 2020-08-16 07:58 | Outpatient (CLI) | payer OTHER, MEDICAID, SELFPAY ==
[2020-08-16 08:21] LABS: Hematocrit 38.3 % (36-46); Hemoglobin 13.3 g/dL (12.0-16.0); Mean Corpuscular HGB Conc 34.7 % (30-36); Mean Corpuscular Hemoglobin 33.2 PG (26-34); Mean Corpuscular Volume 95.7 fL (80-100); Platelet Count 271 X10^3/uL (150-400); Red Cell Distribution Width 12.7 % (11.6-14.8); White Blood Cell Count 4.3 X10^3/uL (4.5-11.0)
[2020-08-16 08:48] LABS: Cholesterol 213 mg/dL (140-199); HDL Cholesterol 38 mg/dL (40-60); LDL Cholesterol Calculated 130 mg/dL (<100); Triglycerides 226 mg/dL (35-150)
== END ==
PROVIDERS: PCP Nurse Practitioner Family; Referring Provider Nurse Practitioner Family; Visit Provider Nurse Practitioner Family
DX: G47.33 Obstructive sleep apnea (adult) (pediatric) (principal); J45.909 Unspecified asthma, uncomplicated; R53.83 Other fatigue; E78.5 Hyperlipidemia, unspecified
CPT/HCPCS: 36415; 80061; 85027

== ENCOUNTER → 2020-08-25 11:33 | Outpatient (CLI) | payer OTHER, MEDICAID, SELFPAY ==
[2020-08-25 13:12] LABS: HEMOLYSIS < 15 (0-50); Iron 113 ug/dL (37-170)
[2020-08-25 13:23] LABS: Percent Iron Saturation 35 % (15-50); Total Iron Binding Capacity 326 ug/dL (265-497); Transferrin 251 mg/dL (206-381)
[2020-08-25 13:49] LABS: Ferritin 78 ng/mL (11-264)
== END ==
PROVIDERS: PCP Nurse Practitioner Family; Referring Provider Nurse Practitioner Family; Visit Provider Nurse Practitioner Family
DX: J45.909 Unspecified asthma, uncomplicated (principal)
CPT/HCPCS: 36415; 82728; 83540; 83550

== ENCOUNTER 2020-09-11 13:30 | Outpatient (RCR) | payer OTHER, MEDICAID, SELFPAY ==
--- NOTE | 2020-05-22 18:05 | PT.OIE ---
Current Diagnoses Other specific arthropathies, not elsewhere classified, unspecified shoulder (05/22/20) Pain in right shoulder (05/22/20) Muscle weakness (generalized) (05/22/20) Other symptoms and signs involving the musculoskeletal system (05/22/20) Strain of muscle, fascia and tendon of other parts of biceps, unspecified arm, initial encounter (05/22/20) Past Medical History (Last Updated 05/05/20 @ 13:58 by DAVID Aceves) Anxiety disorder (Chronic) Asthma (Chronic 1971) Biceps muscle strain (Acute) Depression (Chronic 1994) Episodic mood disorder (Chronic 05/27/16) Excessive daytime sleepiness (Resolved) Family conflict (Inactive) Hyperlipidemia (Chronic 01/21/13) Left ankle sprain (Inactive) Muscle strain of chest wall (Inactive) Obstructive sleep apnea syndrome (Chronic 11/2016) Posttraumatic stress disorder (Chronic ~2014) Primary insomnia (Chronic) Rotator cuff arthropathy (Acute ~02/2020) Seizure (Inactive) Seizure disorder (Acute 1994) Unspecified mood [affective] disorder (Inactive) Unspecified mood [affective] disorder (Inactive) Visit Care Team Role Provider Type DAVID Aceves Attending Provider [employer] Specialist Primary Care Provider Referring Provider Specialty: [facility] Practice Address: [address] [place] [address], [facility] Email: [email or web address] Physical Therapy Initial Evaluation PT-OP-A Visit Information Start: 05/22/20 08:18 Freq: Status: Active Protocol: Document 05/22/20 11:21 LRN (Rec: 05/22/20 12:32 LRN [id number]) Out-Patient Physical Therapy Visit Information Visit Information Visit Type Initial Evaluation Visit Start Time 11:21 Visit Stop Time 12:18 Total Visit Minutes 57 Visit Number 1 Evaluation Information Evaluation Date 05/22/20 Precautions Precautions PMH: Depression, Seizure Disorder, Minor Concussion, Anxiety Disorder, PTSD, Episodic mood disorder, Family conflict, Muscle strain of chest wall. PT-OP-B Current Condition Start: 05/22/20 08:18 Freq: Status: Active Protocol: Document 05/22/20 11:21 LRN (Rec: 05/22/20 12:32 LRN [id number]) Current Condition History of Current Condition Onset Date 03/10/20 Current Complaints R forearm pn, biceps, doesn't function, shdr to Biceps&ear to shldr tender History of Current Condition Was found unconscious on the floor (supine with arms in protective posture) and 3 days later had severe R shoulder pain that radiated down the upper R arm and into the armpit region. When lifting the R arm she would have scapular pain. Neck also is stiff. As she was improving she heard a lot of cracking in the back of the neck and R shoulder for a month (mid March to April), but no cracking now . Of the fall she recalls she had a rough time in her sleep and woke to use bathroom, choosing to move slowly out of bed in order to not leak. She carefully put the CPAP away, then she remembers the motion of putting her feet on the floor and hanging the CPAP unit, and nothing after that. States she has functional limitations (see below) such as reaching behind her back and putting her bra on. Sometimes when using L arm gets pain in intrascapular area on the R. Prior Treatments and Tests States X-ray showed arthritis. Waiting for Orthopedic appt to be made. Future Testing and Treatments Planned Orthopedic appt. Treatment Goals Patient/Caregiver Goals Goal is to return R shoulder back to function: 1) Putting bra on (hook front and twist around body), can't twist it around, and has difficulty putting R arm into bra strap. 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 3) Reaching with R arm. 4) Tightness in R arm with washing hair. 5) Hard time taking shirt on/ off. 6) Tension with wiping. Prior Functional Status Baseline Function- ADL's Independent Baseline Function- Mobility Independent Baseline Function- Recreation/Hobbies Did home exercise requiring reaching overhead. Baseline Function- Other Reaching up in cupboard (on step stool) without difficulty . Current Functional Impairments (Reported) Functional Limitations- ADL's Washing hair, putting shirt on , toileting, turning over in bed because normally pushes with R arm. Functional Limitations- Recreation/ Not able to exercise with arms Hobbies . Functional Limitations- Other Limited w/reaching overhead into cupboard. Personal Factors Other Personal Factors That May Effect New Dx of arthritis Therapy/Recovery PT-OP-C Subjective Start: 05/22/20 08:18 Freq: Status: Active Protocol: Document 05/22/20 11:21 LRN (Rec: 05/22/20 12:32 LRN [id number]) Patient Questionnaires Quick Dash- Upper Extremity Quick Dash UE Score 43.18 Quick Dash UE Impairment 40 to 59% Impaired (Score 40- 59) OP-PT Pain Assessment Pain Assessment Grid Paper Pain Assessment Grid Completed Yes Location R shoulder Intensity 3 PT-OP-E Functional Tests Start: 05/22/20 08:18 Freq: Status: Active Protocol: Document 05/22/20 11:21 LRN (Rec: 05/22/20 12:32 LRN [id number]) Functional Tests Apley's Scratch Test Action 2- Left T3 Action 2- Right T3 Action 3- Left T7 Action 3- Right L3 PT-OP-H Neuro Start: 05/22/20 08:18 Freq: Status: Active Protocol: Document 05/22/20 11:21 LRN (Rec: 05/22/20 12:32 LRN [id number]) Sensation Evaluation Gross Sensation Gross Sensation WNL Deep Tendon Reflex & Clonus Assessment Deep Tendon Reflex Bilateral Tricep Deep Tendon Reflex 0 Absent Bilateral Brachioradialis Deep Tendon Reflex 2+ Normal Bilateral Bicep Deep Tendon Reflex 2+ Normal PT-OP-J Posture/Palpation/Skin Start: 05/22/20 08:18 Freq: Status: Active Protocol: Document 05/22/20 11:21 LRN (Rec: 05/22/20 12:32 LRN [id number]) Posture Evaluation Comments Posture Comments In standing: Moderate Kyphosis and forward head posturing. Head is level on shoulders, normal arm positioning, slightly elevated R shoulder. Palpation Assessment Location Upper back Palpation Location R intrascapular region & R pectoralis Minor Palpation Details Decreased muscle tone. R shoulder Palpation Location R UT & R mid thoracic region, and R Deltoid Palpation Findings Muscle Guarding Palpation Details R UT & R mid thoracic region - increased muscle tone and muscle guarding, R rotation fo mid thoracic vertebrae. R Deltoid - atrophy PT-OP-K Range of Motion Start: 05/22/20 08:18 Freq: Status: Active Protocol: Document 05/22/20 11:21 LRN (Rec: 05/22/20 12:32 LRN [id number]) Cervical Spine Range of Motion Cervical Spine Active Testing Position Sitting ROM Limitations Soft Tissue Tightness Shoulder Goniometric Range of Motion Shoulder Right Passive Testing Position Supine Flexion 162 Abduction 115 External Rotation at 90 degrees 90 Abduction Internal Rotation 58 Left Passive Testing Position Sitting Flexion 180 Abduction 180 External Rotation at 90 degrees 90 Abduction Internal Rotation 65 Left Active Testing Position Sitting Flexion 143 Abduction 180 Right Active Testing Position Sitting Flexion 155 Abduction 180 PT-OP-L Special Tests Start: 05/22/20 08:18 Freq: Status: Active Protocol: Document 05/22/20 11:21 LRN (Rec: 05/22/20 12:32 LRN [id number]) Special Tests Cervical Spine Special Tests Foraminal Compression Test Results Negative bilaterally Vertebral Artery Test Results Negative Bilaterally Shoulder Special Tests Biceps Load II Test Test Results R Negative Elevation Impingement Test Results R shoulder Positive Comments Pain with forced flexion IR/Horizontal ADD Impingement Test Results R shoulder Positive Comments Pain at shoulder PT-OP-M Strength Start: 05/22/20 08:18 Freq: Status: Active Protocol: Document 05/22/20 11:21 LRN (Rec: 05/22/20 12:32 LRN [id number]) Cervical Spine Strength Cervical Spine Manual Muscle Testing Testing Position Sitting Reason Not Measured WFL Shoulder Strength Shoulder Manual Muscle Testing Right External Rotation 4 Good Internal Rotation 3- Fair- Comments Strength 5/5 except as indicated above Left Reason Not Measured WFL Comments Strength 5/5 Elbow/Forearm Strength Elbow and Forearm Manual Muscle Testing Right Reason Not Measured WFL Left Reason Not Measured WFL PT-OP-Q Treatments Start: 05/22/20 08:18 Freq: Status: Active Protocol: Document 05/22/20 11:21 LRN (Rec: 05/22/20 17:39 LRN [id number]) Therapeutic Exercises Standing Exercises Passive shoulder IR stretch Standing Exercise Name Passive shoulder IR stretch w/ towel Side right Reps/Minutes 60 Self-Care/Home Management Treatment Education Patient Education Home Exercise Program Other Education Discussed findings and goals after evaluation. Activities Self-Care/Home Management Activities I/S pt in HEP of passive R shoulder IR stretch with a towel and precautioned pt to not stretch into pain. Discussed use of CP if she has increased pain at the shoulder. Reviewed active sitting windshield wipe exercise. PT-OP-T Assessment and Plan Start: 05/22/20 08:18 Freq: Status: Active Protocol: Document 05/22/20 11:21 LRN (Rec: 05/22/20 12:32 LRN [id number]) Physical Therapy Assessment Rehab Potential Rehabilitation Potential Good Evaluation Complexity Number of Personal Factors/Comorbidities 3 or More Number of Body Systems Impaired 4 or More Clinical Presentation at Evaluation Evolving Impairments Impairments Activity Tolerance,Functional Activities,Pain,ROM,Strength Goals Five Impairment Sleep interruption Director Of Rotc Goal (LTG) Pt will be able to push with R arm to turn over in bed without difficulty or without completely disturbing sleep. LTG Duration 07/21/20 Four Impairment Difficulty with personal hygiene care due to R shldr tightness/pain Short Term Goal (STG) Pt will be able to report wiping during toileting without tightness/tension/pain in the R shoulder. STG Duration 06/20/20 Director Of Rotc Goal (LTG) Pt will be able to wash her hair without tightness/tension /pain in the R shoulder. LTG Duration 07/21/20 Three Impairment Decreased R shoulder strength (ER 4/5, IR 3-/5). Short Term Goal (STG) Pt will be able to pick pulling machine tender food out of oven (3#) without R shoulder pain onset. STG Duration 06/20/20 Director Of Rotc Goal (LTG) Pt will be able to put her bra on by hooking in the front and twisting it around to the back and she will be able to put her R arm into bra strap without pain. LTG Duration 07/21/20 Two Impairment Decreased R shoulder mobility Short Term Goal (STG) Pt will be able to reach up in cupboard (on step stool) without difficulty. STG Duration 06/20/20 Intermediate Goal (LTG) Pt will be able to take her shirt on/off without difficulty. LTG Duration 07/21/20 One Impairment Lacks appropriate self care HEP. Director Of Rotc Goal (LTG) Pt will be independent with a self care HEP to manage her R shoulder pain. LTG Duration 07/21/20 Assessment Summary Assessment Pt presents with a soft tissue dysfunction of the R rotator cuff. She is limited with shoulder IR ROM and demonstrates compensatory scapular movement for shoulder flex and AB. She has atrophy of the her R Deltoid and scapular stabilizing muscles. She has improved quite a bit per her report since the initial injury. She is very careful with movement of her R shoulder; therefore has been able to reduce the pain she initially had in her shoulder to what she feels is tightness . She talks of popping noise in the neck and R shoulder a month ago that has subsided considerable; therefore it is expected that she has soft tissue dysfunction in the neck as well as the R shoulder. The pt will benefit from skilled physical therapy to normalize her R shoulder mobility and improve the stability of her neck and R shoulder/scapula to improve functional use of her R arm. Physical Therapy Plan Frequency and Duration Frequency of Treatment 2x/Week Plan of Care Start Date 05/22/20 Plan of Care End Date 07/21/20 Therapeutic Interventions Therapeutic Interventions Home Exercise Program,Joint Mobilizations,Manual Therapy, Patient/Caregiver Education, Self-Care/Home Management,Soft Tissue Mobilization,Taping, Therapeutic Exercises Modalities Cold Pack/Ice Massage,Electric Stimulation,Hot Packs, Iontophoresis,Ultrasound Next Visit Focus/Plan Next Note Type Treatment Note Next Visit Plan Start with gentle warm up ex f /b ROM stretch for R shoulder IR. Progress towards shoulder rotator cuff and scapular strengthening exercises, end with modalities (CP) for pain with onset of activities.
--- NOTE | 2020-05-30 16:14 | PT.OTN ---
Current Diagnoses Other specific arthropathies, not elsewhere classified, unspecified shoulder (05/30/20) Pain in right shoulder (05/30/20) Muscle weakness (generalized) (05/30/20) Other symptoms and signs involving the musculoskeletal system (05/30/20) Strain of muscle, fascia and tendon of other parts of biceps, unspecified arm, initial encounter (05/30/20) Physical Therapy Treatment Note PT-OP-A Visit Information Start: 05/22/20 08:18 Freq: Status: Active Protocol: Document 05/30/20 15:21 HH (Rec: 05/30/20 16:14 HH [id number]) Out-Patient Physical Therapy Visit Information Visit Information Visit Type Treatment Note Visit Start Time 15:18 Visit Stop Time 16:00 Total Visit Minutes 42 Visit Number 2 PT-OP-B Current Condition Start: 05/22/20 08:18 Freq: Status: Active Protocol: Document 05/22/20 11:21 LRN (Rec: 05/22/20 12:32 LRN [id number]) Current Condition History of Current Condition Onset Date 03/10/20 Current Complaints R forearm pn, biceps, doesn't function, shdr to Biceps&ear to shldr tender History of Current Condition Was found unconscious on the floor (supine with arms in protective posture) and 3 days later had severe R shoulder pain that radiated down the upper R arm and into the armpit region. When lifting the R arm she would have scapular pain. Neck also is stiff. As she was improving she heard a lot of cracking in the back of the neck and R shoulder for a month (mid March to April), but no cracking now . Of the fall she recalls she had a rough time in her sleep and woke to use bathroom, choosing to move slowly out of bed in order to not leak. She carefully put the CPAP away, then she remembers the motion of putting her feet on the floor and hanging the CPAP unit, and nothing after that. States she has functional limitations (see below) such as reaching behind her back and putting her bra on. Sometimes when using L arm gets pain in intrascapular area on the R. Prior Treatments and Tests States X-ray showed arthritis. Waiting for Orthopedic appt to be made. Future Testing and Treatments Planned Orthopedic appt. Treatment Goals Patient/Caregiver Goals Goal is to return R shoulder back to function: 1) Putting bra on (hook front and twist around body), can't twist it around, and has difficulty putting R arm into bra strap. 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 3) Reaching with R arm. 4) Tightness in R arm with washing hair. 5) Hard time taking shirt on/ off. 6) Tension with wiping. Prior Functional Status Baseline Function- ADL's Independent Baseline Function- Mobility Independent Baseline Function- Recreation/Hobbies Did home exercise requiring reaching overhead. Baseline Function- Other Reaching up in cupboard (on step stool) without difficulty . Current Functional Impairments (Reported) Functional Limitations- ADL's Washing hair, putting shirt on , toileting, turning over in bed because normally pushes with R arm. Functional Limitations- Recreation/ Not able to exercise with arms Hobbies . Functional Limitations- Other Limited w/reaching overhead into cupboard. Personal Factors Other Personal Factors That May Effect New Dx of arthritis Therapy/Recovery PT-OP-C Subjective Start: 05/22/20 08:18 Freq: Status: Active Protocol: Document 05/30/20 15:21 HH (Rec: 05/30/20 16:14 HH [id number]) OP-PT Subjective Patient Comments Patient Comments Apryl been doing all my stretches. the thumb climb on my back seems doesnt go up as much even though i practiced. PT-OP-E Functional Tests Start: 05/22/20 08:18 Freq: Status: Active Protocol: Document 05/22/20 11:21 LRN (Rec: 05/22/20 12:32 LRN [id number]) Functional Tests Apley's Scratch Test Action 2- Left T3 Action 2- Right T3 Action 3- Left T7 Action 3- Right L3 PT-OP-H Neuro Start: 05/22/20 08:18 Freq: Status: Active Protocol: Document 05/22/20 11:21 LRN (Rec: 05/22/20 12:32 LRN [id number]) Sensation Evaluation Gross Sensation Gross Sensation WNL Deep Tendon Reflex & Clonus Assessment Deep Tendon Reflex Bilateral Tricep Deep Tendon Reflex 0 Absent Bilateral Brachioradialis Deep Tendon Reflex 2+ Normal Bilateral Bicep Deep Tendon Reflex 2+ Normal PT-OP-J Posture/Palpation/Skin Start: 05/22/20 08:18 Freq: Status: Active Protocol: Document 05/22/20 11:21 LRN (Rec: 05/22/20 12:32 LRN [id number]) Posture Evaluation Comments Posture Comments In standing: Moderate Kyphosis and forward head posturing. Head is level on shoulders, normal arm positioning, slightly elevated R shoulder. Palpation Assessment Location Upper back Palpation Location R intrascapular region & R pectoralis Minor Palpation Details Decreased muscle tone. R shoulder Palpation Location R UT & R mid thoracic region, and R Deltoid Palpation Findings Muscle Guarding Palpation Details R UT & R mid thoracic region - increased muscle tone and muscle guarding, R rotation fo mid thoracic vertebrae. R Deltoid - atrophy PT-OP-K Range of Motion Start: 05/22/20 08:18 Freq: Status: Active Protocol: Document 05/22/20 11:21 LRN (Rec: 05/22/20 12:32 LRN [id number]) Cervical Spine Range of Motion Cervical Spine Active Testing Position Sitting ROM Limitations Soft Tissue Tightness Shoulder Goniometric Range of Motion Shoulder Right Passive Testing Position Supine Flexion 162 Abduction 115 External Rotation at 90 degrees 90 Abduction Internal Rotation 58 Left Passive Testing Position Sitting Flexion 180 Abduction 180 External Rotation at 90 degrees 90 Abduction Internal Rotation 65 Left Active Testing Position Sitting Flexion 143 Abduction 180 Right Active Testing Position Sitting Flexion 155 Abduction 180 PT-OP-L Special Tests Start: 05/22/20 08:18 Freq: Status: Active Protocol: Document 05/22/20 11:21 LRN (Rec: 05/22/20 12:32 LRN [id number]) Special Tests Cervical Spine Special Tests Foraminal Compression Test Results Negative bilaterally Vertebral Artery Test Results Negative Bilaterally Shoulder Special Tests Biceps Load II Test Test Results R Negative Elevation Impingement Test Results R shoulder Positive Comments Pain with forced flexion IR/Horizontal ADD Impingement Test Results R shoulder Positive Comments Pain at shoulder PT-OP-M Strength Start: 05/22/20 08:18 Freq: Status: Active Protocol: Document 05/22/20 11:21 LRN (Rec: 05/22/20 12:32 LRN [id number]) Cervical Spine Strength Cervical Spine Manual Muscle Testing Testing Position Sitting Reason Not Measured WFL Shoulder Strength Shoulder Manual Muscle Testing Right External Rotation 4 Good Internal Rotation 3- Fair- Comments Strength 5/5 except as indicated above Left Reason Not Measured WFL Comments Strength 5/5 Elbow/Forearm Strength Elbow and Forearm Manual Muscle Testing Right Reason Not Measured WFL Left Reason Not Measured WFL PT-OP-Q Treatments Start: 05/22/20 08:18 Freq: Status: Active Protocol: Document 05/30/20 15:21 (Rec: 05/30/20 16:14 [id number]) Therapeutic Exercises Supine Exercises scap squeeze Side bilateral Reps/Minutes 2sec hold x 8 x 2 Comments cues on pushing against the table Standing Exercises Passive shoulder IR stretch Standing Exercise Name Passive shoulder IR stretch w/ towel Side right Reps/Minutes 60 Manual Therapy Treatment Soft Tissue Mobilization biceps Body Location R Mobilization Type Sustained Pressure,Trigger Point Release Intensity/Depth Moderate Body Position Supine Comments mild tenderness to proximal bicep tendon and belly. pecs Body Location R Mobilization Type Sustained Pressure,Trigger Point Release Intensity/Depth Moderate Body Position Supine Comments significant tenderness to pressure at pec minor and major insertions (relieved after manual therapy) RTC Body Location R Mobilization Type Sustained Pressure,Trigger Point Release Intensity/Depth Moderate Body Position Sidelying Comments significant tenderness to pressure at infraspinatus with referred pain to anterior shoulder (relieved after manual therapy) tenderness noted at teres minor Joint Mobilizations GHJ Joint R GHJ Direction post Grade II Body Position Supine Reps/Duration 8 mins Comments pt reports symptoms relief and immediate ROM gain on ER Manual Techniques rhythmic initiation Body Location R scap Body Position Sidelying Reps/Duration 6 each direction x 2 Comments scap elevation, depression, protraction and retraction Passive first, then AAROM and Resisted. pt has difficulty with protraction and retraction. PT-OP-T Assessment and Plan Start: 05/22/20 08:18 Freq: Status: Active Protocol: Document 05/30/20 15:21 (Rec: 05/30/20 16:14 [id number]) Physical Therapy Assessment Goals Five Impairment Sleep interruption Derrick Boat Captain Goal (LTG) Pt will be able to push with R arm to turn over in bed without difficulty or without completely disturbing sleep. LTG Duration 07/21/20 Four Impairment Difficulty with personal hygiene care due to R shldr tightness/pain Short Term Goal (STG) Pt will be able to report wiping during toileting without tightness/tension/pain in the R shoulder. STG Duration 06/20/20 Mcfp Goal (LTG) Pt will be able to wash her hair without tightness/tension /pain in the R shoulder. LTG Duration 07/21/20 Three Impairment Decreased R shoulder strength (ER 4/5, IR 3-/5). 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 STG Duration 06/20/20 Derrick Boat Captain Goal (LTG) Pt will be able to put her bra on by hooking in the front and twisting it around to the back and she will be able to put her R arm into bra strap without pain. LTG Duration 07/21/20 Two Impairment Decreased R shoulder mobility Short Term Goal (STG) Pt will be able to reach up in cupboard (on step stool) without difficulty. STG Duration 06/20/20 Derrick Boat Captain Goal (LTG) Pt will be able to take her shirt on/off without difficulty. LTG Duration 07/21/20 One Impairment Lacks appropriate self care HEP. Derrick Boat Captain Goal (LTG) Pt will be independent with a self care HEP to manage her R shoulder pain. LTG Duration 07/21/20 Assessment Summary Assessment This PT noticed pt has significant anterior GHJ translation while reaching her back. Her symptoms and ROM improved after manual therapy. There are noticeable pain and discomfort to pressure at infraspinatus, teres minor, bicep tendon and pec minor and major. Spent time educating on GHJ mechanics Physical Therapy Plan Next Visit Focus/Plan Next Note Type Treatment Note Next Visit Plan Start with gentle warm up ex f /b ROM stretch for R shoulder IR. Progress towards shoulder rotator cuff and scapular strengthening exercises, end with modalities (CP) for pain with onset of activities.
--- NOTE | 2020-06-02 16:42 | PT.OTN ---
Current Diagnoses Other specific arthropathies, not elsewhere classified, unspecified shoulder (06/02/20) Pain in right shoulder (06/02/20) Muscle weakness (generalized) (06/02/20) Other symptoms and signs involving the musculoskeletal system (06/02/20) Strain of muscle, fascia and tendon of other parts of biceps, unspecified arm, initial encounter (06/02/20) Physical Therapy Treatment Note PT-OP-A Visit Information Start: 05/22/20 08:18 Freq: Status: Active Protocol: Document 06/02/20 13:39 LRN (Rec: 06/02/20 14:21 LRN [id number]) Out-Patient Physical Therapy Visit Information Visit Information Visit Type Treatment Note Visit Start Time 13:39 Visit Stop Time 14:19 Total Visit Minutes 40 Visit Number 3 Evaluation Information Evaluation Date 05/22/20 Precautions Precautions PMH: Depression, Seizure Disorder, Minor Concussion, Anxiety Disorder, PTSD, Episodic mood disorder, Family conflict, Muscle strain of chest wall. PT-OP-B Current Condition Start: 05/22/20 08:18 Freq: Status: Active Protocol: Document 05/22/20 11:21 LRN (Rec: 05/22/20 12:32 LRN [id number]) Current Condition History of Current Condition Onset Date 03/10/20 Current Complaints R forearm pn, biceps, doesn't function, shdr to Biceps&ear to shldr tender History of Current Condition Was found unconscious on the floor (supine with arms in protective posture) and 3 days later had severe R shoulder pain that radiated down the upper R arm and into the armpit region. When lifting the R arm she would have scapular pain. Neck also is stiff. As she was improving she heard a lot of cracking in the back of the neck and R shoulder for a month (mid March to April), but no cracking now . Of the fall she recalls she had a rough time in her sleep and woke to use bathroom, choosing to move slowly out of bed in order to not leak. She carefully put the CPAP away, then she remembers the motion of putting her feet on the floor and hanging the CPAP unit, and nothing after that. States she has functional limitations (see below) such as reaching behind her back and putting her bra on. Sometimes when using L arm gets pain in intrascapular area on the R. Prior Treatments and Tests States X-ray showed arthritis. Waiting for Orthopedic appt to be made. Future Testing and Treatments Planned Orthopedic appt. Treatment Goals Patient/Caregiver Goals Goal is to return R shoulder back to function: 1) Putting bra on (hook front and twist around body), can't twist it around, and has difficulty putting R arm into bra strap. 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 3) Reaching with R arm. 4) Tightness in R arm with washing hair. 5) Hard time taking shirt on/ off. 6) Tension with wiping. Prior Functional Status Baseline Function- ADL's Independent Baseline Function- Mobility Independent Baseline Function- Recreation/Hobbies Did home exercise requiring reaching overhead. Baseline Function- Other Reaching up in cupboard (on step stool) without difficulty . Current Functional Impairments (Reported) Functional Limitations- ADL's Washing hair, putting shirt on , toileting, turning over in bed because normally pushes with R arm. Functional Limitations- Recreation/ Not able to exercise with arms Hobbies . Functional Limitations- Other Limited w/reaching overhead into cupboard. Personal Factors Other Personal Factors That May Effect New Dx of arthritis Therapy/Recovery PT-OP-C Subjective Start: 05/22/20 08:18 Freq: Status: Active Protocol: Document 06/02/20 13:39 LRN (Rec: 06/02/20 14:21 LRN [id number]) OP-PT Subjective Patient Comments Patient Comments Twinged in the muscle of the R upper shoulder, a deep ache a couple times and a throb yesterday, otherwise okay now. Did shoulder blade squeezes and trying to stretch behind back. Walked to clinic, taking 15 minutes. R shoulder pain decreased to 2/10 from 4 /10 at start. PT-OP-E Functional Tests Start: 05/22/20 08:18 Freq: Status: Active Protocol: Document 05/22/20 11:21 LRN (Rec: 05/22/20 12:32 LRN [id number]) Functional Tests Apley's Scratch Test Action 2- Left T3 Action 2- Right T3 Action 3- Left T7 Action 3- Right L3 PT-OP-H Neuro Start: 05/22/20 08:18 Freq: Status: Active Protocol: Document 05/22/20 11:21 LRN (Rec: 05/22/20 12:32 LRN [id number]) Sensation Evaluation Gross Sensation Gross Sensation WNL Deep Tendon Reflex & Clonus Assessment Deep Tendon Reflex Bilateral Tricep Deep Tendon Reflex 0 Absent Bilateral Brachioradialis Deep Tendon Reflex 2+ Normal Bilateral Bicep Deep Tendon Reflex 2+ Normal PT-OP-J Posture/Palpation/Skin Start: 05/22/20 08:18 Freq: Status: Active Protocol: Document 05/22/20 11:21 LRN (Rec: 05/22/20 12:32 LRN [id number]) Posture Evaluation Comments Posture Comments In standing: Moderate Kyphosis and forward head posturing. Head is level on shoulders, normal arm positioning, slightly elevated R shoulder. Palpation Assessment Location Upper back Palpation Location R intrascapular region & R pectoralis Minor Palpation Details Decreased muscle tone. R shoulder Palpation Location R UT & R mid thoracic region, and R Deltoid Palpation Findings Muscle Guarding Palpation Details R UT & R mid thoracic region - increased muscle tone and muscle guarding, R rotation fo mid thoracic vertebrae. R Deltoid - atrophy PT-OP-K Range of Motion Start: 05/22/20 08:18 Freq: Status: Active Protocol: Document 05/22/20 11:21 LRN (Rec: 05/22/20 12:32 LRN [id number]) Cervical Spine Range of Motion Cervical Spine Active Testing Position Sitting ROM Limitations Soft Tissue Tightness Shoulder Goniometric Range of Motion Shoulder Right Passive Testing Position Supine Flexion 162 Abduction 115 External Rotation at 90 degrees 90 Abduction Internal Rotation 58 Left Passive Testing Position Sitting Flexion 180 Abduction 180 External Rotation at 90 degrees 90 Abduction Internal Rotation 65 Left Active Testing Position Sitting Flexion 143 Abduction 180 Right Active Testing Position Sitting Flexion 155 Abduction 180 PT-OP-L Special Tests Start: 05/22/20 08:18 Freq: Status: Active Protocol: Document 05/22/20 11:21 LRN (Rec: 05/22/20 12:32 LRN [id number]) Special Tests Cervical Spine Special Tests Foraminal Compression Test Results Negative bilaterally Vertebral Artery Test Results Negative Bilaterally Shoulder Special Tests Biceps Load II Test Test Results R Negative Elevation Impingement Test Results R shoulder Positive Comments Pain with forced flexion IR/Horizontal ADD Impingement Test Results R shoulder Positive Comments Pain at shoulder PT-OP-M Strength Start: 05/22/20 08:18 Freq: Status: Active Protocol: Document 05/22/20 11:21 LRN (Rec: 05/22/20 12:32 LRN [id number]) Cervical Spine Strength Cervical Spine Manual Muscle Testing Testing Position Sitting Reason Not Measured WFL Shoulder Strength Shoulder Manual Muscle Testing Right External Rotation 4 Good Internal Rotation 3- Fair- Comments Strength 5/5 except as indicated above Left Reason Not Measured WFL Comments Strength 5/5 Elbow/Forearm Strength Elbow and Forearm Manual Muscle Testing Right Reason Not Measured WFL Left Reason Not Measured WFL PT-OP-Q Treatments Start: 05/22/20 08:18 Freq: Status: Active Protocol: Document 06/02/20 13:39 LRN (Rec: 06/02/20 14:21 LRN [id number]) Cardio Equipment Upper Body Ergometer (UBE) Duration (Minutes) 6 RPM 80 Seat Position 12 Height 3 Therapeutic Exercises Supine Exercises Windshield Wipe Supine Exercise Name Active shoulder ER/IR Side right Resistance 10x Comments Pt moves slowly and guarded. Pec Stretch Supine Exercise Name Pec Harjit/Min stretch on 1/2 roll Side right Equipment Used 1/2 roll Reps/Minutes 20 x 6 Shoulder IR Supine Exercise Name Stretch w/cane Side right Reps/Minutes 3' Shoulder ER Supine Exercise Name Stretch w/cane Side right Reps/Minutes 3' scap squeeze Side bilateral Reps/Minutes 5sec hold x 10 Comments cues on pushing against the table Manual Therapy Treatment Soft Tissue Mobilization biceps Body Location R Mobilization Type Sustained Pressure,Trigger Point Release Intensity/Depth Moderate Body Position Supine Comments mild tenderness to proximal bicep tendon and belly. pecs Body Location R Mobilization Type Sustained Pressure,Trigger Point Release Intensity/Depth Moderate Body Position Supine Comments significant tenderness to pressure at pec minor and major insertions (relieved after manual therapy) RTC Body Location R Mobilization Type Sustained Pressure,Trigger Point Release Intensity/Depth Moderate Body Position Sidelying Comments significant tenderness to pressure at infraspinatus with referred pain to anterior shoulder (relieved after manual therapy) tenderness noted at teres minor PT-OP-T Assessment and Plan Start: 05/22/20 08:18 Freq: Status: Active Protocol: Document 06/02/20 13:39 LRN (Rec: 06/02/20 14:21 LRN [id number]) Physical Therapy Assessment Goals Five Impairment Sleep interruption Longterm Goal (LTG) Pt will be able to push with R arm to turn over in bed without difficulty or without completely disturbing sleep. LTG Duration 07/21/20 Four Impairment Difficulty with personal hygiene care due to R shldr tightness/pain Short Term Goal (STG) Pt will be able to report wiping during toileting without tightness/tension/pain in the R shoulder. STG Duration 06/20/20 Toe Stripper Goal (LTG) Pt will be able to wash her hair without tightness/tension /pain in the R shoulder. LTG Duration 07/21/20 Three Impairment Decreased R shoulder strength (ER 4/5, IR 3-/5). 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 STG Duration 06/20/20 Longterm Goal (LTG) Pt will be able to put her bra on by hooking in the front and twisting it around to the back and she will be able to put her R arm into bra strap without pain. LTG Duration 07/21/20 Two Impairment Decreased R shoulder mobility Short Term Goal (STG) Pt will be able to reach up in cupboard (on step stool) without difficulty. STG Duration 06/20/20 Longterm Goal (LTG) Pt will be able to take her shirt on/off without difficulty. LTG Duration 07/21/20 One Impairment Lacks appropriate self care HEP. Longterm Goal (LTG) Pt will be independent with a self care HEP to manage her R shoulder pain. LTG Duration 07/21/20 Progress Towards Goals Progress Comments Pain in shoulder decreased from 4/10 to 2/10. Assessment Summary Assessment Pt has + response to treatment with pain relief from treatment. Physical Therapy Plan Frequency and Duration Frequency of Treatment 2x/Week Plan of Care Start Date 05/22/20 Plan of Care End Date 07/21/20 Next Visit Focus/Plan Next Note Type Treatment Note Next Visit Plan Start with gentle UBE strengthening f/b ROM stretch for R shoulder IR. Progress shoulder rotator cuff and scapular strengthening exercises, end with modalities (CP) for pain with onset of activities if needed.
--- NOTE | 2020-06-05 16:18 | PT.OTN ---
Current Diagnoses Other specific arthropathies, not elsewhere classified, unspecified shoulder (06/05/20) Pain in right shoulder (06/05/20) Muscle weakness (generalized) (06/05/20) Other symptoms and signs involving the musculoskeletal system (06/05/20) Strain of muscle, fascia and tendon of other parts of biceps, unspecified arm, initial encounter (06/05/20) Physical Therapy Treatment Note PT-OP-A Visit Information Start: 05/22/20 08:18 Freq: Status: Active Protocol: Document 06/05/20 15:06 LRN (Rec: 06/05/20 16:16 LRN [id number]) Out-Patient Physical Therapy Visit Information Visit Information Visit Type Treatment Note Visit Start Time 15:06 Visit Stop Time 15:49 Total Visit Minutes 43 Visit Number 4 Evaluation Information Evaluation Date 05/22/20 Precautions Precautions PMH: Depression, Seizure Disorder, Minor Concussion, Anxiety Disorder, PTSD, Episodic mood disorder, Family conflict, Muscle strain of chest wall. PT-OP-B Current Condition Start: 05/22/20 08:18 Freq: Status: Active Protocol: Document 05/22/20 11:21 LRN (Rec: 05/22/20 12:32 LRN [id number]) Current Condition History of Current Condition Onset Date 03/10/20 Current Complaints R forearm pn, biceps, doesn't function, shdr to Biceps&ear to shldr tender History of Current Condition Was found unconscious on the floor (supine with arms in protective posture) and 3 days later had severe R shoulder pain that radiated down the upper R arm and into the armpit region. When lifting the R arm she would have scapular pain. Neck also is stiff. As she was improving she heard a lot of cracking in the back of the neck and R shoulder for a month (mid March to April), but no cracking now . Of the fall she recalls she had a rough time in her sleep and woke to use bathroom, choosing to move slowly out of bed in order to not leak. She carefully put the CPAP away, then she remembers the motion of putting her feet on the floor and hanging the CPAP unit, and nothing after that. States she has functional limitations (see below) such as reaching behind her back and putting her bra on. Sometimes when using L arm gets pain in intrascapular area on the R. Prior Treatments and Tests States X-ray showed arthritis. Waiting for Orthopedic appt to be made. Future Testing and Treatments Planned Orthopedic appt. Treatment Goals Patient/Caregiver Goals Goal is to return R shoulder back to function: 1) Putting bra on (hook front and twist around body), can't twist it around, and has difficulty putting R arm into bra strap. 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 3) Reaching with R arm. 4) Tightness in R arm with washing hair. 5) Hard time taking shirt on/ off. 6) Tension with wiping. Prior Functional Status Baseline Function- ADL's Independent Baseline Function- Mobility Independent Baseline Function- Recreation/Hobbies Did home exercise requiring reaching overhead. Baseline Function- Other Reaching up in cupboard (on step stool) without difficulty . Current Functional Impairments (Reported) Functional Limitations- ADL's Washing hair, putting shirt on , toileting, turning over in bed because normally pushes with R arm. Functional Limitations- Recreation/ Not able to exercise with arms Hobbies . Functional Limitations- Other Limited w/reaching overhead into cupboard. Personal Factors Other Personal Factors That May Effect New Dx of arthritis Therapy/Recovery PT-OP-C Subjective Start: 05/22/20 08:18 Freq: Status: Active Protocol: Document 06/05/20 15:06 LRN (Rec: 06/05/20 16:16 LRN [id number]) OP-PT Subjective Patient Comments Patient Comments Pain was less after UBE Thinks she had less pain doing weeding and cutting off apples. Pain to start 4/10, after ex was 2/10. Didn't think she needed ice to end. PT-OP-E Functional Tests Start: 05/22/20 08:18 Freq: Status: Active Protocol: Document 05/22/20 11:21 LRN (Rec: 05/22/20 12:32 LRN [id number]) Functional Tests Apley's Scratch Test Action 2- Left T3 Action 2- Right T3 Action 3- Left T7 Action 3- Right L3 PT-OP-H Neuro Start: 05/22/20 08:18 Freq: Status: Active Protocol: Document 05/22/20 11:21 LRN (Rec: 05/22/20 12:32 LRN [id number]) Sensation Evaluation Gross Sensation Gross Sensation WNL Deep Tendon Reflex & Clonus Assessment Deep Tendon Reflex Bilateral Tricep Deep Tendon Reflex 0 Absent Bilateral Brachioradialis Deep Tendon Reflex 2+ Normal Bilateral Bicep Deep Tendon Reflex 2+ Normal PT-OP-J Posture/Palpation/Skin Start: 05/22/20 08:18 Freq: Status: Active Protocol: Document 05/22/20 11:21 LRN (Rec: 05/22/20 12:32 LRN [id number]) Posture Evaluation Comments Posture Comments In standing: Moderate Kyphosis and forward head posturing. Head is level on shoulders, normal arm positioning, slightly elevated R shoulder. Palpation Assessment Location Upper back Palpation Location R intrascapular region & R pectoralis Minor Palpation Details Decreased muscle tone. R shoulder Palpation Location R UT & R mid thoracic region, and R Deltoid Palpation Findings Muscle Guarding Palpation Details R UT & R mid thoracic region - increased muscle tone and muscle guarding, R rotation fo mid thoracic vertebrae. R Deltoid - atrophy PT-OP-K Range of Motion Start: 05/22/20 08:18 Freq: Status: Active Protocol: Document 05/22/20 11:21 LRN (Rec: 05/22/20 12:32 LRN [id number]) Cervical Spine Range of Motion Cervical Spine Active Testing Position Sitting ROM Limitations Soft Tissue Tightness Shoulder Goniometric Range of Motion Shoulder Right Passive Testing Position Supine Flexion 162 Abduction 115 External Rotation at 90 degrees 90 Abduction Internal Rotation 58 Left Passive Testing Position Sitting Flexion 180 Abduction 180 External Rotation at 90 degrees 90 Abduction Internal Rotation 65 Left Active Testing Position Sitting Flexion 143 Abduction 180 Right Active Testing Position Sitting Flexion 155 Abduction 180 PT-OP-L Special Tests Start: 05/22/20 08:18 Freq: Status: Active Protocol: Document 05/22/20 11:21 LRN (Rec: 05/22/20 12:32 LRN [id number]) Special Tests Cervical Spine Special Tests Foraminal Compression Test Results Negative bilaterally Vertebral Artery Test Results Negative Bilaterally Shoulder Special Tests Biceps Load II Test Test Results R Negative Elevation Impingement Test Results R shoulder Positive Comments Pain with forced flexion IR/Horizontal ADD Impingement Test Results R shoulder Positive Comments Pain at shoulder PT-OP-M Strength Start: 05/22/20 08:18 Freq: Status: Active Protocol: Document 05/22/20 11:21 LRN (Rec: 05/22/20 12:32 LRN [id number]) Cervical Spine Strength Cervical Spine Manual Muscle Testing Testing Position Sitting Reason Not Measured WFL Shoulder Strength Shoulder Manual Muscle Testing Right External Rotation 4 Good Internal Rotation 3- Fair- Comments Strength 5/5 except as indicated above Left Reason Not Measured WFL Comments Strength 5/5 Elbow/Forearm Strength Elbow and Forearm Manual Muscle Testing Right Reason Not Measured WFL Left Reason Not Measured WFL PT-OP-Q Treatments Start: 05/22/20 08:18 Freq: Status: Active Protocol: Document 06/05/20 15:06 LRN (Rec: 06/05/20 16:16 LRN [id number]) Cardio Equipment Upper Body Ergometer (UBE) Duration (Minutes) 8 RPM 80 Seat Position 12 Height 2.5' @ 3 hgt, 5.5' @ 2.5 hgt Other 2' fwd/bkwd Therapeutic Exercises Supine Exercises Shoulder ER/IR elbows by sides Supine Exercise Name Shoulder ER/IR elbows by sides Reps/Minutes 15x Rubén Shoulder Flex @ 180 deg's Supine Exercise Name Rubén Shoulder Flex @ 180 deg's Side bilateral Equipment Used 1/2 roll & 2 pillows for hands to rest on Reps/Minutes 10 x 10 Windshield Wipe Supine Exercise Name Active shoulder ER/IR Side right Resistance 30x Comments Pt moves slowly and guarded. Pec Stretch Supine Exercise Name Pec Harjit/Min stretch on 1/2 roll Side right Equipment Used 1/2 roll Reps/Minutes 20 x 6 Shoulder IR Supine Exercise Name Passive positional IR stretch Side right Reps/Minutes 3' Shoulder ER Supine Exercise Name Football stretch Side bilateral Reps/Minutes 3' scap squeeze Supine Exercise Name Scapular squeezes Side bilateral Reps/Minutes 10sec hold, 15 x Comments cues on pushing against the table Sitting Exercises Upper thoracic ext Sitting Exercise Name Upper thoracic ext w/arms on table into shoulder flex for Side bilateral Reps/Minutes 3' Comments V. & phys cuing required Standing Exercises Passive shoulder IR stretch Standing Exercise Name Passive shoulder IR stretch w/ towel Side right Equipment Used Towel roll Reps/Minutes 60 x 2 Other Exercises Jacquelyn Pose Other Exercise Name Shoulder flex stretch Reps/Minutes 2 Comments Verbal I/S needed with handout to view 4 pt shoulder flex Other Exercise Name 4 pt: shoulder flex Side bilateral Reps/Minutes 2' Comments Verbal I/S needed with handout to view Self-Care/Home Management Treatment Education Patient Education Home Exercise Program Other Education Issue & reviewed HEP: shoulder flex (active, passive & isometric); active shoulder ER/IR (windshied wipe and with elbows at sides); 4pt ex of shoulder flex and child pose stretch; sitting thoracic ext, and standing row PT-OP-T Assessment and Plan Start: 05/22/20 08:18 Freq: Status: Active Protocol: Document 06/05/20 15:06 LRN (Rec: 06/05/20 16:16 LRN [id number]) Physical Therapy Assessment Goals Five Impairment Sleep interruption Dragger Goal (LTG) Pt will be able to push with R arm to turn over in bed without difficulty or without completely disturbing sleep. LTG Duration 07/21/20 Four Impairment Difficulty with personal hygiene care due to R shldr tightness/pain Short Term Goal (STG) Pt will be able to report wiping during toileting without tightness/tension/pain in the R shoulder. STG Duration 06/20/20 Dragger Goal (LTG) Pt will be able to wash her hair without tightness/tension /pain in the R shoulder. LTG Duration 07/21/20 Three Impairment Decreased R shoulder strength (ER 4/5, IR 3-/5). 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 STG Duration 06/20/20 Dragger Goal (LTG) Pt will be able to put her bra on by hooking in the front and twisting it around to the back and she will be able to put her R arm into bra strap without pain. LTG Duration 07/21/20 Two Impairment Decreased R shoulder mobility Short Term Goal (STG) Pt will be able to reach up in cupboard (on step stool) without difficulty. STG Duration 06/20/20 Fdc Goal (LTG) Pt will be able to take her shirt on/off without difficulty. LTG Duration 07/21/20 One Impairment Lacks appropriate self care HEP. Dragger Goal (LTG) Pt will be independent with a self care HEP to manage her R shoulder pain. LTG Duration 07/21/20 (06/05/20: HEP issued for shoulder ROM & flex/rot strengthening) Assessment Summary Assessment Pt tolerated new exercises without an increase in pain. Pain to end in R shoulder was 2/10. Pt moves slowly and cautiously through exercises. Physical Therapy Plan Frequency and Duration Frequency of Treatment 2x/Week Plan of Care Start Date 05/22/20 Plan of Care End Date 07/21/20 Next Visit Focus/Plan Next Note Type Treatment Note Next Visit Plan Start with gentle UBE strengthening, increase to 9' fwd/bkwd every 3'; f/b ROM stretch for R shoulder IR. Progress shoulder rotator cuff and scapular strengthening exercises, end with modalities (CP) for pain with onset of activities if needed.
--- NOTE | 2020-06-09 14:55 | PT.OTN ---
Current Diagnoses Other specific arthropathies, not elsewhere classified, unspecified shoulder (06/09/20) Pain in right shoulder (06/09/20) Muscle weakness (generalized) (06/09/20) Other symptoms and signs involving the musculoskeletal system (06/09/20) Strain of muscle, fascia and tendon of other parts of biceps, unspecified arm, initial encounter (06/09/20) Physical Therapy Treatment Note PT-OP-A Visit Information Start: 05/22/20 08:18 Freq: Status: Active Protocol: Document 06/09/20 13:45 LRN (Rec: 06/09/20 14:31 LRN [id number]) Out-Patient Physical Therapy Visit Information Visit Information Visit Type Treatment Note Visit Start Time 13:45 Visit Stop Time 14:26 Total Visit Minutes 41 Visit Number 5 Evaluation Information Evaluation Date 05/22/20 Precautions Precautions PMH: Depression, Seizure Disorder, Minor Concussion, Anxiety Disorder, PTSD, Episodic mood disorder, Family conflict, Muscle strain of chest wall. PT-OP-B Current Condition Start: 05/22/20 08:18 Freq: Status: Active Protocol: Document 05/22/20 11:21 LRN (Rec: 05/22/20 12:32 LRN [id number]) Current Condition History of Current Condition Onset Date 03/10/20 Current Complaints R forearm pn, biceps, doesn't function, shdr to Biceps&ear to shldr tender History of Current Condition Was found unconscious on the floor (supine with arms in protective posture) and 3 days later had severe R shoulder pain that radiated down the upper R arm and into the armpit region. When lifting the R arm she would have scapular pain. Neck also is stiff. As she was improving she heard a lot of cracking in the back of the neck and R shoulder for a month (mid March to April), but no cracking now . Of the fall she recalls she had a rough time in her sleep and woke to use bathroom, choosing to move slowly out of bed in order to not leak. She carefully put the CPAP away, then she remembers the motion of putting her feet on the floor and hanging the CPAP unit, and nothing after that. States she has functional limitations (see below) such as reaching behind her back and putting her bra on. Sometimes when using L arm gets pain in intrascapular area on the R. Prior Treatments and Tests States X-ray showed arthritis. Waiting for Orthopedic appt to be made. Future Testing and Treatments Planned Orthopedic appt. Treatment Goals Patient/Caregiver Goals Goal is to return R shoulder back to function: 1) Putting bra on (hook front and twist around body), can't twist it around, and has difficulty putting R arm into bra strap. 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 3) Reaching with R arm. 4) Tightness in R arm with washing hair. 5) Hard time taking shirt on/ off. 6) Tension with wiping. Prior Functional Status Baseline Function- ADL's Independent Baseline Function- Mobility Independent Baseline Function- Recreation/Hobbies Did home exercise requiring reaching overhead. Baseline Function- Other Reaching up in cupboard (on step stool) without difficulty . Current Functional Impairments (Reported) Functional Limitations- ADL's Washing hair, putting shirt on , toileting, turning over in bed because normally pushes with R arm. Functional Limitations- Recreation/ Not able to exercise with arms Hobbies . Functional Limitations- Other Limited w/reaching overhead into cupboard. Personal Factors Other Personal Factors That May Effect New Dx of arthritis Therapy/Recovery PT-OP-C Subjective Start: 05/22/20 08:18 Freq: Status: Active Protocol: Document 06/09/20 13:45 LRN (Rec: 06/09/20 14:31 LRN [id number]) OP-PT Subjective Patient Comments Patient Comments Couldn't get in next week, but has asthma specialists in [place] and doesn't have a car, so probably won't make it next week. Alessandro in bed, not as painful to push with R arm to roll . Reports intermittent twinges of pain with washing of her hair. PT-OP-E Functional Tests Start: 05/22/20 08:18 Freq: Status: Active Protocol: Document 05/22/20 11:21 LRN (Rec: 05/22/20 12:32 LRN [id number]) Functional Tests Marilouey's Scratch Test Action 2- Left T3 Action 2- Right T3 Action 3- Left T7 Action 3- Right L3 PT-OP-H Neuro Start: 05/22/20 08:18 Freq: Status: Active Protocol: Document 05/22/20 11:21 LRN (Rec: 05/22/20 12:32 LRN [id number]) Sensation Evaluation Gross Sensation Gross Sensation WNL Deep Tendon Reflex & Clonus Assessment Deep Tendon Reflex Bilateral Tricep Deep Tendon Reflex 0 Absent Bilateral Brachioradialis Deep Tendon Reflex 2+ Normal Bilateral Bicep Deep Tendon Reflex 2+ Normal PT-OP-J Posture/Palpation/Skin Start: 05/22/20 08:18 Freq: Status: Active Protocol: Document 05/22/20 11:21 LRN (Rec: 05/22/20 12:32 LRN [id number]) Posture Evaluation Comments Posture Comments In standing: Moderate Kyphosis and forward head posturing. Head is level on shoulders, normal arm positioning, slightly elevated R shoulder. Palpation Assessment Location Upper back Palpation Location R intrascapular region & R pectoralis Minor Palpation Details Decreased muscle tone. R shoulder Palpation Location R UT & R mid thoracic region, and R Deltoid Palpation Findings Muscle Guarding Palpation Details R UT & R mid thoracic region - increased muscle tone and muscle guarding, R rotation fo mid thoracic vertebrae. R Deltoid - atrophy PT-OP-K Range of Motion Start: 05/22/20 08:18 Freq: Status: Active Protocol: Document 05/22/20 11:21 LRN (Rec: 05/22/20 12:32 LRN [id number]) Cervical Spine Range of Motion Cervical Spine Active Testing Position Sitting ROM Limitations Soft Tissue Tightness Shoulder Goniometric Range of Motion Shoulder Right Passive Testing Position Supine Flexion 162 Abduction 115 External Rotation at 90 degrees 90 Abduction Internal Rotation 58 Left Passive Testing Position Sitting Flexion 180 Abduction 180 External Rotation at 90 degrees 90 Abduction Internal Rotation 65 Left Active Testing Position Sitting Flexion 143 Abduction 180 Right Active Testing Position Sitting Flexion 155 Abduction 180 PT-OP-L Special Tests Start: 05/22/20 08:18 Freq: Status: Active Protocol: Document 05/22/20 11:21 LRN (Rec: 05/22/20 12:32 LRN [id number]) Special Tests Cervical Spine Special Tests Foraminal Compression Test Results Negative bilaterally Vertebral Artery Test Results Negative Bilaterally Shoulder Special Tests Biceps Load II Test Test Results R Negative Elevation Impingement Test Results R shoulder Positive Comments Pain with forced flexion IR/Horizontal ADD Impingement Test Results R shoulder Positive Comments Pain at shoulder PT-OP-M Strength Start: 05/22/20 08:18 Freq: Status: Active Protocol: Document 05/22/20 11:21 LRN (Rec: 05/22/20 12:32 LRN [id number]) Cervical Spine Strength Cervical Spine Manual Muscle Testing Testing Position Sitting Reason Not Measured WFL Shoulder Strength Shoulder Manual Muscle Testing Right External Rotation 4 Good Internal Rotation 3- Fair- Comments Strength 5/5 except as indicated above Left Reason Not Measured WFL Comments Strength 5/5 Elbow/Forearm Strength Elbow and Forearm Manual Muscle Testing Right Reason Not Measured WFL Left Reason Not Measured WFL PT-OP-Q Treatments Start: 05/22/20 08:18 Freq: Status: Active Protocol: Document 06/09/20 13:45 LRN (Rec: 06/09/20 14:31 LRN [id number]) Therapeutic Exercises Supine Exercises Shoulder rolls Supine Exercise Name Shoulder rolls btn ER/IR stretching Side bilateral Reps/Minutes 5x Rubén Shoulder Flex @ 180 deg's Supine Exercise Name Rubén Shoulder Flex @ 180 deg's Side bilateral Reps/Minutes 10 x 10 Pec Stretch Supine Exercise Name Pec Harjit/Min stretch on 1/2 roll Side right Equipment Used 1/2 roll Reps/Minutes 30 x 4 Shoulder IR Supine Exercise Name Passive positional IR stretch, , immediately f/b active stretch Side right Reps/Minutes 2' Comments v.cuing needed for the active stretch Shoulder ER Supine Exercise Name Football stretch, immediately f/b active stretch Side bilateral Reps/Minutes 2' Comments v.cuing needed for the active stretch scap squeeze Supine Exercise Name Scapular squeezes Side bilateral Equipment Used 1/2 roll Reps/Minutes 5 sec hold, 15 x Standing Exercises Horiz AB/AD Standing Exercise Name Horiz AB/AD with abdominal bracing Side bilateral Reps/Minutes 15x Scap retract/uprot Standing Exercise Name Lift hands off back Reps/Minutes 10x Chest press Standing Exercise Name Chest press Side bilateral Equipment Used Lev 1 TB Reps/Minutes 10x Scapular retractioin Standing Exercise Name Row Side bilateral Equipment Used Lev 1 TB Reps/Minutes 10x Shoulder ER strengthening Standing Exercise Name ER Side right Equipment Used Lev 1 TB Reps/Minutes 10x Shoulder IR strengthening Standing Exercise Name IR Side right Equipment Used Lev 1 TB Reps/Minutes 10x Pendulum swings Standing Exercise Name Pendulum swings Side right Reps/Minutes 3' Passive shoulder IR stretch Standing Exercise Name Passive shoulder IR stretch w/ towel Side right Equipment Used Overhead brittany Reps/Minutes 60 x 2, f/b PROM reps Other Exercises Overhead Brittany Other Exercise Name Shoulder Flex ROM (alternating ROM) Side bilateral Reps/Minutes 7' Self-Care/Home Management Treatment Education Patient Education Home Exercise Program Activities Self-Care/Home Management Activities V. instructions to add shoulder ER/IR strengthening with T-Band for HEP. Pt to use previously issued rehab theraband. PT-OP-T Assessment and Plan Start: 05/22/20 08:18 Freq: Status: Active Protocol: Document 06/09/20 13:45 LRN (Rec: 06/09/20 14:31 LRN [id number]) Physical Therapy Assessment Goals Five Impairment Sleep interruption Court Security Officer Goal (LTG) Pt will be able to push with R arm to turn over in bed without difficulty or without completely disturbing sleep. LTG Duration 07/21/20 Four Impairment Difficulty with personal hygiene care due to R shldr tightness/pain Short Term Goal (STG) Pt will be able to report wiping during toileting without tightness/tension/pain in the R shoulder. STG Duration 06/20/20 Intermediate Goal (LTG) Pt will be able to wash her hair without tightness/tension /pain in the R shoulder. LTG Duration 07/21/20 (06/09/20: Intermittent twinges of pain) Three Impairment Decreased R shoulder strength (ER 4/5, IR 3-/5). 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 STG Duration 06/20/20 [address] Security Officer Goal (LTG) Pt will be able to put her bra on by hooking in the front and twisting it around to the back and she will be able to put her R arm into bra strap without pain. LTG Duration 07/21/20 Two Impairment Decreased R shoulder mobility Short Term Goal (STG) Pt will be able to reach up in cupboard (on step stool) without difficulty. STG Duration 06/20/20 Intermediate Goal (LTG) Pt will be able to take her shirt on/off without difficulty. LTG Duration 07/21/20 One Impairment Lacks appropriate self care HEP. Intermediate Goal (LTG) Pt will be independent with a self care HEP to manage her R shoulder pain. LTG Duration 07/21/20 (06/05/20: HEP issued for shoulder ROM & flex/rot strengthening) Progress Towards Goals Progress Comments Strength progressing. Pt able to use resistance with exercises of Lev 1 TBand. Assessment Summary Assessment Good tolerance to exercise, although R shoulder IR stretch is very limiting. Discomfort with Scap retract/uprot ex ( hand lifts off back). Pt having twinges of pain with washing of hair. No R shoulder pain after therapy. Physical Therapy Plan Frequency and Duration Frequency of Treatment 2x/Week Plan of Care Start Date 05/22/20 Plan of Care End Date 07/21/20 Next Visit Focus/Plan Next Note Type Treatment Note Next Visit Plan Add lat pull down ex in sup/ standing. Gentle UBE strengthening, increase to 9' fwd/bkwd every 3'; f/b ROM stretch for R shoulder IR. Progress shoulder rotator cuff and scapular strengthening exercises, end with modalities (CP) for pain with onset of activities if needed.
--- NOTE | 2020-06-20 12:57 | PT.OTN ---
Current Diagnoses Other specific arthropathies, not elsewhere classified, unspecified shoulder (06/20/20) Pain in right shoulder (06/20/20) Muscle weakness (generalized) (06/20/20) Other symptoms and signs involving the musculoskeletal system (06/20/20) Strain of muscle, fascia and tendon of other parts of biceps, unspecified arm, initial encounter (06/20/20) Physical Therapy Treatment Note PT-OP-A Visit Information Start: 05/22/20 08:18 Freq: Status: Active Protocol: Document 06/20/20 09:51 LRN (Rec: 06/20/20 10:31 LRN [id number]) Out-Patient Physical Therapy Visit Information Visit Information Visit Type Treatment Note Visit Start Time 09:51 Visit Stop Time 10:29 Total Visit Minutes 38 Visit Number 6 Evaluation Information Evaluation Date 05/22/20 Precautions Precautions PMH: Depression, Seizure Disorder, Minor Concussion, Anxiety Disorder, PTSD, Episodic mood disorder, Family conflict, Muscle strain of chest wall. PT-OP-B Current Condition Start: 05/22/20 08:18 Freq: Status: Active Protocol: Document 05/22/20 11:21 LRN (Rec: 05/22/20 12:32 LRN [id number]) Current Condition History of Current Condition Onset Date 03/10/20 Current Complaints R forearm pn, biceps, doesn't function, shdr to Biceps&ear to shldr tender History of Current Condition Was found unconscious on the floor (supine with arms in protective posture) and 3 days later had severe R shoulder pain that radiated down the upper R arm and into the armpit region. When lifting the R arm she would have scapular pain. Neck also is stiff. As she was improving she heard a lot of cracking in the back of the neck and R shoulder for a month (mid March to April), but no cracking now . Of the fall she recalls she had a rough time in her sleep and woke to use bathroom, choosing to move slowly out of bed in order to not leak. She carefully put the CPAP away, then she remembers the motion of putting her feet on the floor and hanging the CPAP unit, and nothing after that. States she has functional limitations (see below) such as reaching behind her back and putting her bra on. Sometimes when using L arm gets pain in intrascapular area on the R. Prior Treatments and Tests States X-ray showed arthritis. Waiting for Orthopedic appt to be made. Future Testing and Treatments Planned Orthopedic appt. Treatment Goals Patient/Caregiver Goals Goal is to return R shoulder back to function: 1) Putting bra on (hook front and twist around body), can't twist it around, and has difficulty putting R arm into bra strap. 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 3) Reaching with R arm. 4) Tightness in R arm with washing hair. 5) Hard time taking shirt on/ off. 6) Tension with wiping. Prior Functional Status Baseline Function- ADL's Independent Baseline Function- Mobility Independent Baseline Function- Recreation/Hobbies Did home exercise requiring reaching overhead. Baseline Function- Other Reaching up in cupboard (on step stool) without difficulty . Current Functional Impairments (Reported) Functional Limitations- ADL's Washing hair, putting shirt on , toileting, turning over in bed because normally pushes with R arm. Functional Limitations- Recreation/ Not able to exercise with arms Hobbies . Functional Limitations- Other Limited w/reaching overhead into cupboard. Personal Factors Other Personal Factors That May Effect New Dx of arthritis Therapy/Recovery PT-OP-C Subjective Start: 05/22/20 08:18 Freq: Status: Active Protocol: Document 06/20/20 09:51 LRN (Rec: 06/20/20 10:31 LRN [id number]) OP-PT Subjective Patient Comments Patient Comments Pt requests use of BR to start , also requests taking it easy today due to having health difficulty with breathing through mask, family issues, asthma, and posture starting to collapse due to issues at home. Feels she may be a little better because she can do some activities that she reaches that is less difficult . PT-OP-E Functional Tests Start: 05/22/20 08:18 Freq: Status: Active Protocol: Document 05/22/20 11:21 LRN (Rec: 05/22/20 12:32 LRN [id number]) Functional Tests Marilouey's Scratch Test Action 2- Left T3 Action 2- Right T3 Action 3- Left T7 Action 3- Right L3 PT-OP-H Neuro Start: 05/22/20 08:18 Freq: Status: Active Protocol: Document 05/22/20 11:21 LRN (Rec: 05/22/20 12:32 LRN [id number]) Sensation Evaluation Gross Sensation Gross Sensation WNL Deep Tendon Reflex & Clonus Assessment Deep Tendon Reflex Bilateral Tricep Deep Tendon Reflex 0 Absent Bilateral Brachioradialis Deep Tendon Reflex 2+ Normal Bilateral Bicep Deep Tendon Reflex 2+ Normal PT-OP-J Posture/Palpation/Skin Start: 05/22/20 08:18 Freq: Status: Active Protocol: Document 05/22/20 11:21 LRN (Rec: 05/22/20 12:32 LRN [id number]) Posture Evaluation Comments Posture Comments In standing: Moderate Kyphosis and forward head posturing. Head is level on shoulders, normal arm positioning, slightly elevated R shoulder. Palpation Assessment Location Upper back Palpation Location R intrascapular region & R pectoralis Minor Palpation Details Decreased muscle tone. R shoulder Palpation Location R UT & R mid thoracic region, and R Deltoid Palpation Findings Muscle Guarding Palpation Details R UT & R mid thoracic region - increased muscle tone and muscle guarding, R rotation fo mid thoracic vertebrae. R Deltoid - atrophy PT-OP-K Range of Motion Start: 05/22/20 08:18 Freq: Status: Active Protocol: Document 05/22/20 11:21 LRN (Rec: 05/22/20 12:32 LRN [id number]) Cervical Spine Range of Motion Cervical Spine Active Testing Position Sitting ROM Limitations Soft Tissue Tightness Shoulder Goniometric Range of Motion Shoulder Right Passive Testing Position Supine Flexion 162 Abduction 115 External Rotation at 90 degrees 90 Abduction Internal Rotation 58 Left Passive Testing Position Sitting Flexion 180 Abduction 180 External Rotation at 90 degrees 90 Abduction Internal Rotation 65 Left Active Testing Position Sitting Flexion 143 Abduction 180 Right Active Testing Position Sitting Flexion 155 Abduction 180 PT-OP-L Special Tests Start: 05/22/20 08:18 Freq: Status: Active Protocol: Document 05/22/20 11:21 LRN (Rec: 05/22/20 12:32 LRN [id number]) Special Tests Cervical Spine Special Tests Foraminal Compression Test Results Negative bilaterally Vertebral Artery Test Results Negative Bilaterally Shoulder Special Tests Biceps Load II Test Test Results R Negative Elevation Impingement Test Results R shoulder Positive Comments Pain with forced flexion IR/Horizontal ADD Impingement Test Results R shoulder Positive Comments Pain at shoulder PT-OP-M Strength Start: 05/22/20 08:18 Freq: Status: Active Protocol: Document 05/22/20 11:21 LRN (Rec: 05/22/20 12:32 LRN [id number]) Cervical Spine Strength Cervical Spine Manual Muscle Testing Testing Position Sitting Reason Not Measured WFL Shoulder Strength Shoulder Manual Muscle Testing Right External Rotation 4 Good Internal Rotation 3- Fair- Comments Strength 5/5 except as indicated above Left Reason Not Measured WFL Comments Strength 5/5 Elbow/Forearm Strength Elbow and Forearm Manual Muscle Testing Right Reason Not Measured WFL Left Reason Not Measured WFL PT-OP-Q Treatments Start: 05/22/20 08:18 Freq: Status: Active Protocol: Document 06/20/20 09:51 LRN (Rec: 06/20/20 10:31 LRN [id number]) Therapeutic Exercises Supine Exercises Shoulder rolls Supine Exercise Name Shoulder rolls btn ER/IR stretching Side bilateral Reps/Minutes 2' Rubén Shoulder Flex @ 180 deg's Supine Exercise Name Rubén Shoulder Flex @ 180 deg's Side bilateral Reps/Minutes 5 hold, 15 x 2 Pec Stretch Supine Exercise Name Pec Harjit/Min stretch on 1/2 roll Side right Equipment Used 1/2 roll Reps/Minutes 2' Shoulder IR Supine Exercise Name Passive positional IR stretch, , immediately f/b active stretch Side right Reps/Minutes 2' Comments v.cuing needed for the active stretch Shoulder ER Supine Exercise Name Football stretch, immediately f/b active stretch Side bilateral Reps/Minutes 3' Comments Phys cuing needed for the active stretch scap squeeze Supine Exercise Name Scapular squeezes Side bilateral Equipment Used 1/2 roll Reps/Minutes 2' Sitting Exercises Upper thoracic ext Sitting Exercise Name Upper thoracic ext w/arms on table into shoulder flex for Side bilateral Reps/Minutes 2' Comments V. & phys cuing required Standing Exercises Scap retract/uprot Standing Exercise Name Lift hands off back Reps/Minutes 2' Chest press Standing Exercise Name Chest press Side bilateral Equipment Used Lev 1 TB Reps/Minutes 2' Scapular retractioin Standing Exercise Name Row Side bilateral Equipment Used Lev 2 TB Reps/Minutes 2' Shoulder ER strengthening Standing Exercise Name ER Side right Equipment Used Lev 1 TB Reps/Minutes 2' Shoulder IR strengthening Standing Exercise Name IR Side right Equipment Used Lev 1 TB Reps/Minutes 2' Pendulum swings Standing Exercise Name Pendulum swings Side right Reps/Minutes 1' Other Exercises Overhead Serge Other Exercise Name Shoulder Flex ROM (alternating ROM) Side bilateral Reps/Minutes 7' Jacquelyn Pose Other Exercise Name Shoulder flex stretch Reps/Minutes 2' Comments Phys & Verbal I/S needed PT-OP-T Assessment and Plan Start: 05/22/20 08:18 Freq: Status: Active Protocol: Document 06/20/20 09:51 LRN (Rec: 06/20/20 10:31 LRN [id number]) Physical Therapy Assessment Goals Five Impairment Sleep interruption Shelter Goal (LTG) Pt will be able to push with R arm to turn over in bed without difficulty or without completely disturbing sleep. LTG Duration 07/21/20 Four Impairment Difficulty with personal hygiene care due to R shldr tightness/pain Short Term Goal (STG) Pt will be able to report wiping during toileting without tightness/tension/pain in the R shoulder. STG Duration 06/20/20 Shelter Goal (LTG) Pt will be able to wash her hair without tightness/tension /pain in the R shoulder. LTG Duration 07/21/20 (06/09/20: Intermittent twinges of pain) Three Impairment Decreased R shoulder strength (ER 4/5, IR 3-/5). 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 STG Duration 06/20/20 Rolling Mill Plugger Goal (LTG) Pt will be able to put her bra on by hooking in the front and twisting it around to the back and she will be able to put her R arm into bra strap without pain. LTG Duration 07/21/20 Two Impairment Decreased R shoulder mobility Short Term Goal (STG) Pt will be able to reach up in cupboard (on step stool) without difficulty. STG Duration 06/20/20 Shelter Goal (LTG) Pt will be able to take her shirt on/off without difficulty. LTG Duration 07/21/20 One Impairment Lacks appropriate self care HEP. Rolling Mill Plugger Goal (LTG) Pt will be independent with a self care HEP to manage her R shoulder pain. LTG Duration 07/21/20 (06/05/20: HEP issued for shoulder ROM & flex/rot strengthening) Progress Towards Goals Progress Towards Goals Slow Progress due to Activity Tolerance Assessment Summary Assessment Pt had low tolerance to ex today; therefore progress was slow. Pt was able to tolerate addition of 5 reps with exercises. Physical Therapy Plan Frequency and Duration Frequency of Treatment 2x/Week Plan of Care Start Date 05/22/20 Plan of Care End Date 07/21/20 Next Visit Focus/Plan Next Note Type Treatment Note Next Visit Plan Add lat pull down ex in sup/ standing. Gentle UBE strengthening, increase to 9' fwd/bkwd every 3'; f/b ROM stretch for R shoulder IR. Progress shoulder rotator cuff and scapular strengthening exercises, end with modalities (CP) for pain with onset of activities if needed.
--- NOTE | 2020-06-26 14:24 | PT.OTN ---
Current Diagnoses Other specific arthropathies, not elsewhere classified, unspecified shoulder (06/26/20) Pain in right shoulder (06/26/20) Muscle weakness (generalized) (06/26/20) Other symptoms and signs involving the musculoskeletal system (06/26/20) Strain of muscle, fascia and tendon of other parts of biceps, unspecified arm, initial encounter (06/26/20) Physical Therapy Treatment Note PT-OP-A Visit Information Start: 05/22/20 08:18 Freq: Status: Active Protocol: Document 06/26/20 13:34 LRN (Rec: 06/26/20 14:23 LRN [id number]) Out-Patient Physical Therapy Visit Information Visit Information Visit Type Treatment Note Visit Start Time 13:34 Visit Stop Time 14:19 Total Visit Minutes 45 Visit Number 7 Evaluation Information Evaluation Date 05/22/20 Precautions Precautions PMH: Depression, Seizure Disorder, Minor Concussion, Anxiety Disorder, PTSD, Episodic mood disorder, Family conflict, Muscle strain of chest wall. PT-OP-B Current Condition Start: 05/22/20 08:18 Freq: Status: Active Protocol: Document 05/22/20 11:21 LRN (Rec: 05/22/20 12:32 LRN [id number]) Current Condition History of Current Condition Onset Date 03/10/20 Current Complaints R forearm pn, biceps, doesn't function, shdr to Biceps&ear to shldr tender History of Current Condition Was found unconscious on the floor (supine with arms in protective posture) and 3 days later had severe R shoulder pain that radiated down the upper R arm and into the armpit region. When lifting the R arm she would have scapular pain. Neck also is stiff. As she was improving she heard a lot of cracking in the back of the neck and R shoulder for a month (mid March to April), but no cracking now . Of the fall she recalls she had a rough time in her sleep and woke to use bathroom, choosing to move slowly out of bed in order to not leak. She carefully put the CPAP away, then she remembers the motion of putting her feet on the floor and hanging the CPAP unit, and nothing after that. States she has functional limitations (see below) such as reaching behind her back and putting her bra on. Sometimes when using L arm gets pain in intrascapular area on the R. Prior Treatments and Tests States X-ray showed arthritis. Waiting for Orthopedic appt to be made. Future Testing and Treatments Planned Orthopedic appt. Treatment Goals Patient/Caregiver Goals Goal is to return R shoulder back to function: 1) Putting bra on (hook front and twist around body), can't twist it around, and has difficulty putting R arm into bra strap. 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 3) Reaching with R arm. 4) Tightness in R arm with washing hair. 5) Hard time taking shirt on/ off. 6) Tension with wiping. Prior Functional Status Baseline Function- ADL's Independent Baseline Function- Mobility Independent Baseline Function- Recreation/Hobbies Did home exercise requiring reaching overhead. Baseline Function- Other Reaching up in cupboard (on step stool) without difficulty . Current Functional Impairments (Reported) Functional Limitations- ADL's Washing hair, putting shirt on , toileting, turning over in bed because normally pushes with R arm. Functional Limitations- Recreation/ Not able to exercise with arms Hobbies . Functional Limitations- Other Limited w/reaching overhead into cupboard. Personal Factors Other Personal Factors That May Effect New Dx of arthritis Therapy/Recovery PT-OP-C Subjective Start: 05/22/20 08:18 Freq: Status: Active Protocol: Document 06/26/20 13:34 LRN (Rec: 06/26/20 14:23 LRN [id number]) OP-PT Subjective Patient Comments Patient Comments States feeling a little better than last treatment. Able to move in bed without R shoulder pain. Thinks she is starting to become depressed. R shoulder tiny twige of pain , not really pain. States she did some weeding yesterday morning and didn't have R shoulder pain, but day before did have pain. Has orthopedic appt in 4 days (Fri). PT-OP-E Functional Tests Start: 05/22/20 08:18 Freq: Status: Active Protocol: Document 05/22/20 11:21 LRN (Rec: 05/22/20 12:32 LRN [id number]) Functional Tests Marilouey's Scratch Test Action 2- Left T3 Action 2- Right T3 Action 3- Left T7 Action 3- Right L3 PT-OP-H Neuro Start: 05/22/20 08:18 Freq: Status: Active Protocol: Document 05/22/20 11:21 LRN (Rec: 05/22/20 12:32 LRN [id number]) Sensation Evaluation Gross Sensation Gross Sensation WNL Deep Tendon Reflex & Clonus Assessment Deep Tendon Reflex Bilateral Tricep Deep Tendon Reflex 0 Absent Bilateral Brachioradialis Deep Tendon Reflex 2+ Normal Bilateral Bicep Deep Tendon Reflex 2+ Normal PT-OP-J Posture/Palpation/Skin Start: 05/22/20 08:18 Freq: Status: Active Protocol: Document 05/22/20 11:21 LRN (Rec: 05/22/20 12:32 LRN [id number]) Posture Evaluation Comments Posture Comments In standing: Moderate Kyphosis and forward head posturing. Head is level on shoulders, normal arm positioning, slightly elevated R shoulder. Palpation Assessment Location Upper back Palpation Location R intrascapular region & R pectoralis Minor Palpation Details Decreased muscle tone. R shoulder Palpation Location R UT & R mid thoracic region, and R Deltoid Palpation Findings Muscle Guarding Palpation Details R UT & R mid thoracic region - increased muscle tone and muscle guarding, R rotation fo mid thoracic vertebrae. R Deltoid - atrophy PT-OP-K Range of Motion Start: 05/22/20 08:18 Freq: Status: Active Protocol: Document 05/22/20 11:21 LRN (Rec: 05/22/20 12:32 LRN [id number]) Cervical Spine Range of Motion Cervical Spine Active Testing Position Sitting ROM Limitations Soft Tissue Tightness Shoulder Goniometric Range of Motion Shoulder Right Passive Testing Position Supine Flexion 162 Abduction 115 External Rotation at 90 degrees 90 Abduction Internal Rotation 58 Left Passive Testing Position Sitting Flexion 180 Abduction 180 External Rotation at 90 degrees 90 Abduction Internal Rotation 65 Left Active Testing Position Sitting Flexion 143 Abduction 180 Right Active Testing Position Sitting Flexion 155 Abduction 180 PT-OP-L Special Tests Start: 05/22/20 08:18 Freq: Status: Active Protocol: Document 05/22/20 11:21 LRN (Rec: 05/22/20 12:32 LRN [id number]) Special Tests Cervical Spine Special Tests Foraminal Compression Test Results Negative bilaterally Vertebral Artery Test Results Negative Bilaterally Shoulder Special Tests Biceps Load II Test Test Results R Negative Elevation Impingement Test Results R shoulder Positive Comments Pain with forced flexion IR/Horizontal ADD Impingement Test Results R shoulder Positive Comments Pain at shoulder PT-OP-M Strength Start: 05/22/20 08:18 Freq: Status: Active Protocol: Document 05/22/20 11:21 LRN (Rec: 05/22/20 12:32 LRN [id number]) Cervical Spine Strength Cervical Spine Manual Muscle Testing Testing Position Sitting Reason Not Measured WFL Shoulder Strength Shoulder Manual Muscle Testing Right External Rotation 4 Good Internal Rotation 3- Fair- Comments Strength 5/5 except as indicated above Left Reason Not Measured WFL Comments Strength 5/5 Elbow/Forearm Strength Elbow and Forearm Manual Muscle Testing Right Reason Not Measured WFL Left Reason Not Measured WFL PT-OP-Q Treatments Start: 05/22/20 08:18 Freq: Status: Active Protocol: Document 06/26/20 13:34 LRN (Rec: 06/26/20 14:23 LRN [id number]) Cardio Equipment Upper Body Ergometer (UBE) Duration (Minutes) 6 RPM 80 Seat Position 12 Height 2.5 Other 2' each fwd/bkd Therapeutic Exercises Supine Exercises Lat Pull down Supine Exercise Name Lat pull down Reps/Minutes 10x Comments Pt fatigued at end, phys cuing needed for proper performance of ex Pec Stretch Supine Exercise Name Pec Harjit/Min stretch on 1/2 roll Side right Reps/Minutes 2' Comments Pt on narrow table and able to drop elbows low for a good stretch Shoulder IR Supine Exercise Name Passive positional IR stretch, , immediately f/b active stretch Side right Reps/Minutes 2' Comments v.cuing needed for the active stretch Shoulder ER Supine Exercise Name Football stretch, immediately f/b active stretch Side bilateral Reps/Minutes 2' Comments Phys cuing needed for the active stretch scap squeeze Supine Exercise Name Scapular squeezes Side bilateral Equipment Used 1/2 roll Reps/Minutes 2' Standing Exercises Lat Pull down Standing Exercise Name Lat Pull down Side bilateral Resistance Lev 2 T-Band Reps/Minutes 15 x Horiz AB/AD Standing Exercise Name Horiz AB/AD with abdominal bracing Side bilateral Reps/Minutes 15x Scap retract/uprot Standing Exercise Name Lift hands off back Reps/Minutes 15x 2 Chest press Standing Exercise Name Chest press Side bilateral Equipment Used Lev 2 TB Reps/Minutes 10x Scapular retractioin Standing Exercise Name Row Side bilateral Equipment Used Lev 2 TB Reps/Minutes 10x 3 Shoulder ER strengthening Standing Exercise Name ER Side right Equipment Used Lev 1 TB Reps/Minutes 2' Shoulder IR strengthening Standing Exercise Name IR Side bilateral Equipment Used Lev 2 TB Reps/Minutes 10 x 3 PT-OP-T Assessment and Plan Start: 05/22/20 08:18 Freq: Status: Active Protocol: Document 06/26/20 13:34 LRN (Rec: 06/26/20 14:23 LRN [id number]) Physical Therapy Assessment Goals Five Impairment Sleep interruption Electronic Security Technician Goal (LTG) Pt will be able to push with R arm to turn over in bed without difficulty or without completely disturbing sleep. LTG Duration 07/21/20 (06/26/20: MET GOAL) Four Impairment Difficulty with personal hygiene care due to R shldr tightness/pain Short Term Goal (STG) Pt will be able to report wiping during toileting without tightness/tension/pain in the R shoulder. STG Duration 06/20/20 Electronic Security Technician Goal (LTG) Pt will be able to wash her hair without tightness/tension /pain in the R shoulder. LTG Duration 07/21/20 (06/09/20: Intermittent twinges of pain) Three Impairment Decreased R shoulder strength (ER 4/5, IR 3-/5). 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 STG Duration 06/20/20 Electronic Security Technician Goal (LTG) Pt will be able to put her bra on by hooking in the front and twisting it around to the back and she will be able to put her R arm into bra strap without pain. LTG Duration 07/21/20 Two Impairment Decreased R shoulder mobility Short Term Goal (STG) Pt will be able to reach up in cupboard (on step stool) without difficulty. STG Duration 06/20/20 Jail Goal (LTG) Pt will be able to take her shirt on/off without difficulty. LTG Duration 07/21/20 One Impairment Lacks appropriate self care HEP. Jail Goal (LTG) Pt will be independent with a self care HEP to manage her R shoulder pain. LTG Duration 07/21/20 (06/05/20: HEP issued for shoulder ROM & flex/rot strengthening) Progress Towards Goals Progress Comments Goal 5 MET. Pt strength improving. Pt not waking due to moving around in bed at night. Assessment Summary Assessment Pt tolerated the increase in exercise fairly well without complaints of pain. Pt became too hot with last ex of session (UBE) and was only able to tolerate 6' of ex. Pt had twinge of posterior neck pain after exercise. She needed 2 drinks during the ex session. Physical Therapy Plan Frequency and Duration Frequency of Treatment 2x/Week Plan of Care Start Date 05/22/20 Plan of Care End Date 07/21/20 Next Visit Focus/Plan Next Note Type Treatment Note Next Visit Plan Gentle UBE strengthening, increase fwd/bkwd aerobic tolerance; f/b ROM stretch for R shoulder IR. Progress shoulder rotator cuff and scapular strengthening exercises, end with modalities (CP) for pain with onset of activities if needed.
--- NOTE | 2020-07-06 16:16 | PT.OTN ---
Current Diagnoses Other specific arthropathies, not elsewhere classified, unspecified shoulder (07/06/20) Pain in right shoulder (07/06/20) Muscle weakness (generalized) (07/06/20) Other symptoms and signs involving the musculoskeletal system (07/06/20) Strain of muscle, fascia and tendon of other parts of biceps, unspecified arm, initial encounter (07/06/20) Physical Therapy Treatment Note PT-OP-A Visit Information Start: 05/22/20 08:18 Freq: Status: Active Protocol: Document 07/06/20 15:09 LRN (Rec: 07/06/20 15:56 LRN [id number]) Out-Patient Physical Therapy Visit Information Visit Information Visit Type Treatment Note Visit Start Time 15:09 Visit Stop Time 15:52 Total Visit Minutes 43 Visit Number 8 Evaluation Information Evaluation Date 05/22/20 Precautions Precautions PMH: Depression, Seizure Disorder, Minor Concussion, Anxiety Disorder, PTSD, Episodic mood disorder, Family conflict, Muscle strain of chest wall. PT-OP-B Current Condition Start: 05/22/20 08:18 Freq: Status: Active Protocol: Document 05/22/20 11:21 LRN (Rec: 05/22/20 12:32 LRN [id number]) Current Condition History of Current Condition Onset Date 03/10/20 Current Complaints R forearm pn, biceps, doesn't function, shdr to Biceps&ear to shldr tender History of Current Condition Was found unconscious on the floor (supine with arms in protective posture) and 3 days later had severe R shoulder pain that radiated down the upper R arm and into the armpit region. When lifting the R arm she would have scapular pain. Neck also is stiff. As she was improving she heard a lot of cracking in the back of the neck and R shoulder for a month (mid March to April), but no cracking now . Of the fall she recalls she had a rough time in her sleep and woke to use bathroom, choosing to move slowly out of bed in order to not leak. She carefully put the CPAP away, then she remembers the motion of putting her feet on the floor and hanging the CPAP unit, and nothing after that. States she has functional limitations (see below) such as reaching behind her back and putting her bra on. Sometimes when using L arm gets pain in intrascapular area on the R. Prior Treatments and Tests States X-ray showed arthritis. Waiting for Orthopedic appt to be made. Future Testing and Treatments Planned Orthopedic appt. Treatment Goals Patient/Caregiver Goals Goal is to return R shoulder back to function: 1) Putting bra on (hook front and twist around body), can't twist it around, and has difficulty putting R arm into bra strap. 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 3) Reaching with R arm. 4) Tightness in R arm with washing hair. 5) Hard time taking shirt on/ off. 6) Tension with wiping. Prior Functional Status Baseline Function- ADL's Independent Baseline Function- Mobility Independent Baseline Function- Recreation/Hobbies Did home exercise requiring reaching overhead. Baseline Function- Other Reaching up in cupboard (on step stool) without difficulty . Current Functional Impairments (Reported) Functional Limitations- ADL's Washing hair, putting shirt on , toileting, turning over in bed because normally pushes with R arm. Functional Limitations- Recreation/ Not able to exercise with arms Hobbies . Functional Limitations- Other Limited w/reaching overhead into cupboard. Personal Factors Other Personal Factors That May Effect New Dx of arthritis Therapy/Recovery PT-OP-C Subjective Start: 05/22/20 08:18 Freq: Status: Active Protocol: Document 07/06/20 15:09 LRN (Rec: 07/06/20 15:56 LRN [id number]) OP-PT Subjective Patient Comments Patient Comments Saw Dr Zhong, orthopedist in [facility] and was told she had a bone spur in the R shoulder. No heavy lifting overhead. Will be getting back to her about a MRI. Thinks she is able to reach behind her back more. Arm muscle hasn't been hurting/ aching as much. Aching in the arm at nighttime to turn doesn 't wake her up at night. States doesn't notice her shoulder with wiping (on toilet). PT-OP-E Functional Tests Start: 05/22/20 08:18 Freq: Status: Active Protocol: Document 05/22/20 11:21 LRN (Rec: 05/22/20 12:32 LRN [id number]) Functional Tests Marilouey's Scratch Test Action 2- Left T3 Action 2- Right T3 Action 3- Left T7 Action 3- Right L3 PT-OP-H Neuro Start: 05/22/20 08:18 Freq: Status: Active Protocol: Document 05/22/20 11:21 LRN (Rec: 05/22/20 12:32 LRN [id number]) Sensation Evaluation Gross Sensation Gross Sensation WNL Deep Tendon Reflex & Clonus Assessment Deep Tendon Reflex Bilateral Tricep Deep Tendon Reflex 0 Absent Bilateral Brachioradialis Deep Tendon Reflex 2+ Normal Bilateral Bicep Deep Tendon Reflex 2+ Normal PT-OP-J Posture/Palpation/Skin Start: 05/22/20 08:18 Freq: Status: Active Protocol: Document 05/22/20 11:21 LRN (Rec: 05/22/20 12:32 LRN [id number]) Posture Evaluation Comments Posture Comments In standing: Moderate Kyphosis and forward head posturing. Head is level on shoulders, normal arm positioning, slightly elevated R shoulder. Palpation Assessment Location Upper back Palpation Location R intrascapular region & R pectoralis Minor Palpation Details Decreased muscle tone. R shoulder Palpation Location R UT & R mid thoracic region, and R Deltoid Palpation Findings Muscle Guarding Palpation Details R UT & R mid thoracic region - increased muscle tone and muscle guarding, R rotation fo mid thoracic vertebrae. R Deltoid - atrophy PT-OP-K Range of Motion Start: 05/22/20 08:18 Freq: Status: Active Protocol: Document 05/22/20 11:21 LRN (Rec: 05/22/20 12:32 LRN [id number]) Cervical Spine Range of Motion Cervical Spine Active Testing Position Sitting ROM Limitations Soft Tissue Tightness Shoulder Goniometric Range of Motion Shoulder Right Passive Testing Position Supine Flexion 162 Abduction 115 External Rotation at 90 degrees 90 Abduction Internal Rotation 58 Left Passive Testing Position Sitting Flexion 180 Abduction 180 External Rotation at 90 degrees 90 Abduction Internal Rotation 65 Left Active Testing Position Sitting Flexion 143 Abduction 180 Right Active Testing Position Sitting Flexion 155 Abduction 180 PT-OP-L Special Tests Start: 05/22/20 08:18 Freq: Status: Active Protocol: Document 05/22/20 11:21 LRN (Rec: 05/22/20 12:32 LRN [id number]) Special Tests Cervical Spine Special Tests Foraminal Compression Test Results Negative bilaterally Vertebral Artery Test Results Negative Bilaterally Shoulder Special Tests Biceps Load II Test Test Results R Negative Elevation Impingement Test Results R shoulder Positive Comments Pain with forced flexion IR/Horizontal ADD Impingement Test Results R shoulder Positive Comments Pain at shoulder PT-OP-M Strength Start: 05/22/20 08:18 Freq: Status: Active Protocol: Document 05/22/20 11:21 LRN (Rec: 05/22/20 12:32 LRN [id number]) Cervical Spine Strength Cervical Spine Manual Muscle Testing Testing Position Sitting Reason Not Measured WFL Shoulder Strength Shoulder Manual Muscle Testing Right External Rotation 4 Good Internal Rotation 3- Fair- Comments Strength 5/5 except as indicated above Left Reason Not Measured WFL Comments Strength 5/5 Elbow/Forearm Strength Elbow and Forearm Manual Muscle Testing Right Reason Not Measured WFL Left Reason Not Measured WFL PT-OP-Q Treatments Start: 05/22/20 08:18 Freq: Status: Active Protocol: Document 07/06/20 15:09 LRN (Rec: 07/06/20 15:56 LRN [id number]) Cardio Equipment Upper Body Ergometer (UBE) Duration (Minutes) 7 Seat Position 13 Height 3 Therapeutic Exercises Supine Exercises Lat Pull down Supine Exercise Name Lat pull down Reps/Minutes 10x Comments Pt fatigued at end, phys cuing needed for proper performance of ex Rubén Shoulder Flex @ 180 deg's Supine Exercise Name Rubén Shoulder Flex @ 180 deg's Side bilateral Reps/Minutes 15 x 2 Comments Ex for scap retract/depression Pec Stretch Supine Exercise Name Pec Harjit/Min stretch on /2 roll Side bilateral Reps/Minutes 2' Shoulder IR Supine Exercise Name Passive positional IR stretch, , immediately f/b active stretch Side right Reps/Minutes 2' Comments v.cuing needed for the active stretch Shoulder ER Supine Exercise Name Football stretch, immediately f/b active stretch Side bilateral Reps/Minutes 2' Comments Phys cuing needed for the active stretch Standing Exercises Horiz AB/AD Standing Exercise Name Horiz AB/AD with abdominal bracing Side bilateral Reps/Minutes 10x 2 Scap retract/uprot Standing Exercise Name Lift hands off back Reps/Minutes 15x 2 Chest press Standing Exercise Name Lifting casserole into oven movement Side bilateral Equipment Used Holding 1#, 2#, Soccer ball Reps/Minutes 3' Comments D/C'd 2# after 5 reps due to anterior R shoulder pain. Scapular retractioin Standing Exercise Name Row Side bilateral Equipment Used Lev 2 TB Reps/Minutes 10x 3 Shoulder ER strengthening Standing Exercise Name ER Side right Equipment Used Lev 1 TB Reps/Minutes 10 x 3 Shoulder IR strengthening Standing Exercise Name IR Side bilateral Equipment Used Lev 2 TB Reps/Minutes 10 x 3 PT-OP-T Assessment and Plan Start: 05/22/20 08:18 Freq: Status: Active Protocol: Document 07/06/20 15:09 LRN (Rec: 07/06/20 15:56 LRN [id number]) Physical Therapy Assessment Goals Five Impairment Sleep interruption Fdc Goal (LTG) Pt will be able to push with R arm to turn over in bed without difficulty or without completely disturbing sleep. LTG Duration 07/21/20 (06/26/20: MET GOAL, no sleep disturbance due to R arm) Four Impairment Difficulty with personal hygiene care due to R shldr tightness/pain Short Term Goal (STG) Pt will be able to report wiping during toileting without tightness/tension/pain in the R shoulder. STG Duration 06/20/20 (07/06/20: MET GOAL) Fdc Goal (LTG) Pt will be able to wash her hair without tightness/tension /pain in the R shoulder. (07/06/20: Washing her hair she gets tired). LTG Duration 07/21/20 (06/09/20: Intermittent twinges of pain) Three Impairment Decreased R shoulder strength (ER 4/5, IR 3-/5). Short Term Goal (STG) Pt will be able to hop picker food out of oven (3#) without R shoulder pain onset. STG Duration 06/20/20 Epic Professional Goal (LTG) Pt will be able to put her bra on by hooking in the front and twisting it around to the back and she will be able to put her R arm into bra strap without pain. (07/06/20: Able to put on bra, getting arm in straps having twinges of pain) LTG Duration 07/21/20 (07/06/20: No pain putting on bra; pain getting arm in strap) Two Impairment Decreased R shoulder mobility Short Term Goal (STG) Pt will be able to reach up in cupboard (on step stool) without difficulty. STG Duration 06/20/20 Epic Professional Goal (LTG) Pt will be able to take her shirt on/off without difficulty. LTG Duration 07/21/20 (07/06/20: Sometimes has difficulty, mainly due to stiffness) One Impairment Lacks appropriate self care HEP. Epic Professional Goal (LTG) Pt will be independent with a self care HEP to manage her R shoulder pain. LTG Duration 07/21/20 (06/05/20: HEP issued for shoulder ROM & flex/rot strengthening) Progress Towards Goals Progress Comments Goal #4 STG MET. Goal #3 LTG Partially met. Assessment Summary Assessment Pt improving in function as she progressed in strengthening. Physical Therapy Plan Frequency and Duration Frequency of Treatment 2x/Week Plan of Care Start Date 05/22/20 Plan of Care End Date 07/21/20 Next Visit Focus/Plan Next Note Type Treatment Note Next Visit Plan Gentle UBE strengthening, increase fwd/bkwd aerobic tolerance; f/b ROM stretch for R shoulder IR. Progress shoulder rotator cuff and scapular strengthening exercises, end with modalities (CP) for pain with onset of activities if needed.
--- NOTE | 2020-07-14 15:59 | PT.OTN ---
Current Diagnoses Other specific arthropathies, not elsewhere classified, unspecified shoulder (07/14/20) Pain in right shoulder (07/14/20) Muscle weakness (generalized) (07/14/20) Other symptoms and signs involving the musculoskeletal system (07/14/20) Strain of muscle, fascia and tendon of other parts of biceps, unspecified arm, initial encounter (07/14/20) Physical Therapy Treatment Note PT-OP-A Visit Information Start: 05/22/20 08:18 Freq: Status: Active Protocol: Document 07/14/20 15:01 LRN (Rec: 07/14/20 15:58 LRN [id number]) Out-Patient Physical Therapy Visit Information Visit Information Visit Type Treatment Note Visit Start Time 15:01 Visit Stop Time 15:42 Total Visit Minutes 41 Visit Number 9 Evaluation Information Evaluation Date 05/22/20 Precautions Precautions PMH: Depression, Seizure Disorder, Minor Concussion, Anxiety Disorder, PTSD, Episodic mood disorder, Family conflict, Muscle strain of chest wall. PT-OP-B Current Condition Start: 05/22/20 08:18 Freq: Status: Active Protocol: Document 05/22/20 11:21 LRN (Rec: 05/22/20 12:32 LRN [id number]) Current Condition History of Current Condition Onset Date 03/10/20 Current Complaints R forearm pn, biceps, doesn't function, shdr to Biceps&ear to shldr tender History of Current Condition Was found unconscious on the floor (supine with arms in protective posture) and 3 days later had severe R shoulder pain that radiated down the upper R arm and into the armpit region. When lifting the R arm she would have scapular pain. Neck also is stiff. As she was improving she heard a lot of cracking in the back of the neck and R shoulder for a month (mid March to April), but no cracking now . Of the fall she recalls she had a rough time in her sleep and woke to use bathroom, choosing to move slowly out of bed in order to not leak. She carefully put the CPAP away, then she remembers the motion of putting her feet on the floor and hanging the CPAP unit, and nothing after that. States she has functional limitations (see below) such as reaching behind her back and putting her bra on. Sometimes when using L arm gets pain in intrascapular area on the R. Prior Treatments and Tests States X-ray showed arthritis. Waiting for Orthopedic appt to be made. Future Testing and Treatments Planned Orthopedic appt. Treatment Goals Patient/Caregiver Goals Goal is to return R shoulder back to function: 1) Putting bra on (hook front and twist around body), can't twist it around, and has difficulty putting R arm into bra strap. 2) shove up food out of oven (3 #). 3) Reaching with R arm. 4) Tightness in R arm with washing hair. 5) Hard time taking shirt on/ off. 6) Tension with wiping. Prior Functional Status Baseline Function- ADL's Independent Baseline Function- Mobility Independent Baseline Function- Recreation/Hobbies Did home exercise requiring reaching overhead. Baseline Function- Other Reaching up in cupboard (on step stool) without difficulty . Current Functional Impairments (Reported) Functional Limitations- ADL's Washing hair, putting shirt on , toileting, turning over in bed because normally pushes with R arm. Functional Limitations- Recreation/ Not able to exercise with arms Hobbies . Functional Limitations- Other Limited w/reaching overhead into cupboard. Personal Factors Other Personal Factors That May Effect New Dx of arthritis Therapy/Recovery PT-OP-C Subjective Start: 05/22/20 08:18 Freq: Status: Active Protocol: Document 07/14/20 15:01 LRN (Rec: 07/14/20 15:58 LRN [id number]) OP-PT Subjective Patient Comments Patient Comments Saw Dr Dez Zhong at [facility]. States MRI shows she has multiple high grade tears throughout the shoulder and tendon tear but not pulling away from bone. Doesn't recommend surgery right now. Since pain is improved he recommends doing PT instead of surgery. This past week had a little pulling in shoulder at the bone spur region and at biceps. Upper back some pulling like she has had in the past. States washing her hair has been pretty good. PT-OP-E Functional Tests Start: 05/22/20 08:18 Freq: Status: Active Protocol: Document 05/22/20 11:21 LRN (Rec: 05/22/20 12:32 LRN [id number]) Functional Tests Marilouey's Scratch Test Action 2- Left T3 Action 2- Right T3 Action 3- Left T7 Action 3- Right L3 PT-OP-H Neuro Start: 05/22/20 08:18 Freq: Status: Active Protocol: Document 05/22/20 11:21 LRN (Rec: 05/22/20 12:32 LRN [id number]) Sensation Evaluation Gross Sensation Gross Sensation WNL Deep Tendon Reflex & Clonus Assessment Deep Tendon Reflex Bilateral Tricep Deep Tendon Reflex 0 Absent Bilateral Brachioradialis Deep Tendon Reflex 2+ Normal Bilateral Bicep Deep Tendon Reflex 2+ Normal PT-OP-J Posture/Palpation/Skin Start: 05/22/20 08:18 Freq: Status: Active Protocol: Document 05/22/20 11:21 LRN (Rec: 05/22/20 12:32 LRN [id number]) Posture Evaluation Comments Posture Comments In standing: Moderate Kyphosis and forward head posturing. Head is level on shoulders, normal arm positioning, slightly elevated R shoulder. Palpation Assessment Location Upper back Palpation Location R intrascapular region & R pectoralis Minor Palpation Details Decreased muscle tone. R shoulder Palpation Location R UT & R mid thoracic region, and R Deltoid Palpation Findings Muscle Guarding Palpation Details R UT & R mid thoracic region - increased muscle tone and muscle guarding, R rotation fo mid thoracic vertebrae. R Deltoid - atrophy PT-OP-K Range of Motion Start: 05/22/20 08:18 Freq: Status: Active Protocol: Document 05/22/20 11:21 LRN (Rec: 05/22/20 12:32 LRN [id number]) Cervical Spine Range of Motion Cervical Spine Active Testing Position Sitting ROM Limitations Soft Tissue Tightness Shoulder Goniometric Range of Motion Shoulder Right Passive Testing Position Supine Flexion 162 Abduction 115 External Rotation at 90 degrees 90 Abduction Internal Rotation 58 Left Passive Testing Position Sitting Flexion 180 Abduction 180 External Rotation at 90 degrees 90 Abduction Internal Rotation 65 Left Active Testing Position Sitting Flexion 143 Abduction 180 Right Active Testing Position Sitting Flexion 155 Abduction 180 PT-OP-L Special Tests Start: 05/22/20 08:18 Freq: Status: Active Protocol: Document 05/22/20 11:21 LRN (Rec: 05/22/20 12:32 LRN [id number]) Special Tests Cervical Spine Special Tests Foraminal Compression Test Results Negative bilaterally Vertebral Artery Test Results Negative Bilaterally Shoulder Special Tests Biceps Load II Test Test Results R Negative Elevation Impingement Test Results R shoulder Positive Comments Pain with forced flexion IR/Horizontal ADD Impingement Test Results R shoulder Positive Comments Pain at shoulder PT-OP-M Strength Start: 05/22/20 08:18 Freq: Status: Active Protocol: Document 05/22/20 11:21 LRN (Rec: 05/22/20 12:32 LRN [id number]) Cervical Spine Strength Cervical Spine Manual Muscle Testing Testing Position Sitting Reason Not Measured WFL Shoulder Strength Shoulder Manual Muscle Testing Right External Rotation 4 Good Internal Rotation 3- Fair- Comments Strength 5/5 except as indicated above Left Reason Not Measured WFL Comments Strength 5/5 Elbow/Forearm Strength Elbow and Forearm Manual Muscle Testing Right Reason Not Measured WFL Left Reason Not Measured WFL PT-OP-Q Treatments Start: 05/22/20 08:18 Freq: Status: Active Protocol: Document 07/14/20 15:01 LRN (Rec: 07/14/20 15:58 LRN [id number]) Cardio Equipment Upper Body Ergometer (UBE) Duration (Minutes) 8 RPM 80 Seat Position 13 Height 3 Other 3' fwd/bkwd Therapeutic Exercises Standing Exercises PNF Standing Exercise Name wood chop Side bilateral Equipment Used Lev 2 T-Band Reps/Minutes 15x each Lifting (casserole mechanics) Standing Exercise Name Lifting casserole into oven movement Resistance Holding 1#, 2#, Soccer ball Reps/Minutes 10x Lat Pull down Standing Exercise Name Lat Pull down Side bilateral Resistance Lev 2 T-Band Reps/Minutes 15 x 2 Horiz AB/AD Standing Exercise Name Horiz AB/AD with abdominal bracing Side bilateral Resistance Lev 1 TBand Reps/Minutes 10x Scap retract/uprot Standing Exercise Name Lift hands off back Reps/Minutes 15x 2 Chest press Standing Exercise Name Chest Press Side bilateral Equipment Used Lev 2 T-Band Reps/Minutes 15x Scapular retractioin Standing Exercise Name Row Side bilateral Equipment Used Lev 2 TB Reps/Minutes 15x 2 Comments Phys cuing needed to get scapular depression w/row Shoulder ER strengthening Standing Exercise Name ER Side right Equipment Used Lev 2 TB Reps/Minutes 15x 2 Shoulder IR strengthening Standing Exercise Name IR Side bilateral Equipment Used Lev 2 TB Reps/Minutes 15x 2 PT-OP-T Assessment and Plan Start: 05/22/20 08:18 Freq: Status: Active Protocol: Document 07/14/20 15:01 LRN (Rec: 07/14/20 15:58 LRN [id number]) Physical Therapy Assessment Goals Five Impairment Sleep interruption Shelter Goal (LTG) Pt will be able to push with R arm to turn over in bed without difficulty or without completely disturbing sleep. LTG Duration 07/21/20 (06/26/20: MET GOAL, no sleep disturbance due to R arm) Four Impairment Difficulty with personal hygiene care due to R shldr tightness/pain Short Term Goal (STG) Pt will be able to report wiping during toileting without tightness/tension/pain in the R shoulder. STG Duration 06/20/20 (07/06/20: MET GOAL) Medical Coding Manager Goal (LTG) Pt will be able to wash her hair without tightness/tension /pain in the R shoulder. (07/14/20: Able to wash her hair). LTG Duration 07/21/20 (07/14/20: MET GOAL) ) Three Impairment Decreased R shoulder strength (ER 4/5, IR 3-/5). Short Term Goal (STG) Pt will be able to pick pulling machine tender food out of oven (3#) without R shoulder pain onset. STG Duration 06/20/20 Medical Coding Manager Goal (LTG) Pt will be able to put her bra on by hooking in the front and twisting it around to the back and she will be able to put her R arm into bra strap without pain. (07/06/20: Able to put on bra, getting arm in straps having twinges of pain) LTG Duration 07/21/20 (07/06/20: No pain putting on bra; pain getting arm in strap) Two Impairment Decreased R shoulder mobility Short Term Goal (STG) Pt will be able to reach up in cupboard (on step stool) without difficulty. STG Duration 06/20/20 Medical Coding Manager Goal (LTG) Pt will be able to take her shirt on/off without difficulty. LTG Duration 07/21/20 (07/06/20: Sometimes has difficulty, mainly due to stiffness) One Impairment Lacks appropriate self care HEP. Medical Coding Manager Goal (LTG) Pt will be independent with a self care HEP to manage her R shoulder pain. LTG Duration 07/21/20 (06/05/20: HEP issued for shoulder ROM & flex/rot strengthening) Progress Towards Goals Progress Comments Goal # 4 STG MET. Assessment Summary Assessment Pt demonstrates increasing tolerance to exercise. Her function per subjective reports has improved with ability to wash her hair. Physical Therapy Plan Frequency and Duration Frequency of Treatment 2x/Week Plan of Care Start Date 05/22/20 Plan of Care End Date 07/21/20 Next Visit Focus/Plan Next Note Type Treatment Note Next Visit Plan Increase ex tolerance with UBE strengthening, add CKC ex to address bed mobility; f/b ROM stretch for R shoulder IR. Progress shoulder rotator cuff and scapular strengthening exercises, end with modalities (CP) for pain with onset of activities if needed.
--- NOTE | 2020-07-18 15:58 | PT.OTN ---
Current Diagnoses Other specific arthropathies, not elsewhere classified, unspecified shoulder (07/18/20) Pain in right shoulder (07/18/20) Muscle weakness (generalized) (07/18/20) Other symptoms and signs involving the musculoskeletal system (07/18/20) Strain of muscle, fascia and tendon of other parts of biceps, unspecified arm, initial encounter (07/18/20) Physical Therapy Treatment Note PT-OP-A Visit Information Start: 05/22/20 08:18 Freq: Status: Active Protocol: Document 07/18/20 15:08 LRN (Rec: 07/18/20 15:57 LRN [id number]) Out-Patient Physical Therapy Visit Information Visit Information Visit Type Treatment Note Visit Start Time 15:08 Visit Stop Time 15:52 Total Visit Minutes 44 Visit Number 10 Evaluation Information Evaluation Date 05/22/20 Precautions Precautions PMH: Depression, Seizure Disorder, Minor Concussion, Anxiety Disorder, PTSD, Episodic mood disorder, Family conflict, Muscle strain of chest wall. PT-OP-B Current Condition Start: 05/22/20 08:18 Freq: Status: Active Protocol: Document 05/22/20 11:21 LRN (Rec: 05/22/20 12:32 LRN [id number]) Current Condition History of Current Condition Onset Date 03/10/20 Current Complaints R forearm pn, biceps, doesn't function, shdr to Biceps&ear to shldr tender History of Current Condition Was found unconscious on the floor (supine with arms in protective posture) and 3 days later had severe R shoulder pain that radiated down the upper R arm and into the armpit region. When lifting the R arm she would have scapular pain. Neck also is stiff. As she was improving she heard a lot of cracking in the back of the neck and R shoulder for a month (mid March to April), but no cracking now . Of the fall she recalls she had a rough time in her sleep and woke to use bathroom, choosing to move slowly out of bed in order to not leak. She carefully put the CPAP away, then she remembers the motion of putting her feet on the floor and hanging the CPAP unit, and nothing after that. States she has functional limitations (see below) such as reaching behind her back and putting her bra on. Sometimes when using L arm gets pain in intrascapular area on the R. Prior Treatments and Tests States X-ray showed arthritis. Waiting for Orthopedic appt to be made. Future Testing and Treatments Planned Orthopedic appt. Treatment Goals Patient/Caregiver Goals Goal is to return R shoulder back to function: 1) Putting bra on (hook front and twist around body), can't twist it around, and has difficulty putting R arm into bra strap. 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 3) Reaching with R arm. 4) Tightness in R arm with washing hair. 5) Hard time taking shirt on/ off. 6) Tension with wiping. Prior Functional Status Baseline Function- ADL's Independent Baseline Function- Mobility Independent Baseline Function- Recreation/Hobbies Did home exercise requiring reaching overhead. Baseline Function- Other Reaching up in cupboard (on step stool) without difficulty . Current Functional Impairments (Reported) Functional Limitations- ADL's Washing hair, putting shirt on , toileting, turning over in bed because normally pushes with R arm. Functional Limitations- Recreation/ Not able to exercise with arms Hobbies . Functional Limitations- Other Limited w/reaching overhead into cupboard. Personal Factors Other Personal Factors That May Effect New Dx of arthritis Therapy/Recovery PT-OP-C Subjective Start: 05/22/20 08:18 Freq: Status: Active Protocol: Document 07/18/20 15:08 LRN (Rec: 07/18/20 15:57 LRN [id number]) OP-PT Subjective Patient Comments Patient Comments Had a little pain this week, something while sleeping. Woke with R shoulder and medial distal brachium hurting more than usual. pain is PT-OP-E Functional Tests Start: 05/22/20 08:18 Freq: Status: Active Protocol: Document 05/22/20 11:21 LRN (Rec: 05/22/20 12:32 LRN [id number]) Functional Tests Apley's Scratch Test Action 2- Left T3 Action 2- Right T3 Action 3- Left T7 Action 3- Right L3 PT-OP-H Neuro Start: 05/22/20 08:18 Freq: Status: Active Protocol: Document 05/22/20 11:21 LRN (Rec: 05/22/20 12:32 LRN [id number]) Sensation Evaluation Gross Sensation Gross Sensation WNL Deep Tendon Reflex & Clonus Assessment Deep Tendon Reflex Bilateral Tricep Deep Tendon Reflex 0 Absent Bilateral Brachioradialis Deep Tendon Reflex 2+ Normal Bilateral Bicep Deep Tendon Reflex 2+ Normal PT-OP-J Posture/Palpation/Skin Start: 05/22/20 08:18 Freq: Status: Active Protocol: Document 05/22/20 11:21 LRN (Rec: 05/22/20 12:32 LRN [id number]) Posture Evaluation Comments Posture Comments In standing: Moderate Kyphosis and forward head posturing. Head is level on shoulders, normal arm positioning, slightly elevated R shoulder. Palpation Assessment Location Upper back Palpation Location R intrascapular region & R pectoralis Minor Palpation Details Decreased muscle tone. R shoulder Palpation Location R UT & R mid thoracic region, and R Deltoid Palpation Findings Muscle Guarding Palpation Details R UT & R mid thoracic region - increased muscle tone and muscle guarding, R rotation fo mid thoracic vertebrae. R Deltoid - atrophy PT-OP-K Range of Motion Start: 05/22/20 08:18 Freq: Status: Active Protocol: Document 05/22/20 11:21 LRN (Rec: 05/22/20 12:32 LRN [id number]) Cervical Spine Range of Motion Cervical Spine Active Testing Position Sitting ROM Limitations Soft Tissue Tightness Shoulder Goniometric Range of Motion Shoulder Right Passive Testing Position Supine Flexion 162 Abduction 115 External Rotation at 90 degrees 90 Abduction Internal Rotation 58 Left Passive Testing Position Sitting Flexion 180 Abduction 180 External Rotation at 90 degrees 90 Abduction Internal Rotation 65 Left Active Testing Position Sitting Flexion 143 Abduction 180 Right Active Testing Position Sitting Flexion 155 Abduction 180 PT-OP-L Special Tests Start: 05/22/20 08:18 Freq: Status: Active Protocol: Document 05/22/20 11:21 LRN (Rec: 05/22/20 12:32 LRN [id number]) Special Tests Cervical Spine Special Tests Foraminal Compression Test Results Negative bilaterally Vertebral Artery Test Results Negative Bilaterally Shoulder Special Tests Biceps Load II Test Test Results R Negative Elevation Impingement Test Results R shoulder Positive Comments Pain with forced flexion IR/Horizontal ADD Impingement Test Results R shoulder Positive Comments Pain at shoulder PT-OP-M Strength Start: 05/22/20 08:18 Freq: Status: Active Protocol: Document 05/22/20 11:21 LRN (Rec: 05/22/20 12:32 LRN [id number]) Cervical Spine Strength Cervical Spine Manual Muscle Testing Testing Position Sitting Reason Not Measured WFL Shoulder Strength Shoulder Manual Muscle Testing Right External Rotation 4 Good Internal Rotation 3- Fair- Comments Strength 5/5 except as indicated above Left Reason Not Measured WFL Comments Strength 5/5 Elbow/Forearm Strength Elbow and Forearm Manual Muscle Testing Right Reason Not Measured WFL Left Reason Not Measured WFL PT-OP-Q Treatments Start: 05/22/20 08:18 Freq: Status: Active Protocol: Document 07/18/20 15:08 LRN (Rec: 07/18/20 15:57 LRN [id number]) Therapeutic Exercises Supine Exercises Lat Pull down Supine Exercise Name Lat pull down Resistance Lev 2 & 2# Reps/Minutes 10x Comments Pt fatigued at end, phys cuing needed for proper performance of ex Standing Exercises PNF Standing Exercise Name wood chop Side bilateral Equipment Used Lev 2 T-Band Reps/Minutes 15x each Lifting (casserole mechanics) Standing Exercise Name Lifting casserole into oven movement Side bilateral Resistance Holding/lifting 2# Reps/Minutes 10x Lat Pull down Standing Exercise Name Lat Pull down Side bilateral Resistance Lev 2 T-Band Reps/Minutes 15 x Horiz AB/AD Standing Exercise Name Horiz AB/Row with abdominal bracing Side bilateral Resistance Lev 1 TBand Reps/Minutes 15x 2 Scap retract/uprot Standing Exercise Name Lift hands off back Resistance Lev 1 Reps/Minutes 15x 2 Chest press Standing Exercise Name Chest Press Side bilateral Equipment Used Lev 2 T-Band Reps/Minutes 15x 2 Scapular retractioin Standing Exercise Name Row Side bilateral Equipment Used Lev 2 TB Reps/Minutes 15x 2 Comments Phys cuing needed to get scapular depression w/row Shoulder ER strengthening Standing Exercise Name ER (R>L) Side right Equipment Used Lev 2 & 3 TB Reps/Minutes 10x 1 each Shoulder IR strengthening Standing Exercise Name IR (R>L) Side right Equipment Used Lev 2, Lev 3 TB Reps/Minutes 10x 1 each PT-OP-R Modalities Start: 05/22/20 08:18 Freq: Status: Active Protocol: Document 07/18/20 15:08 LRN (Rec: 07/18/20 15:57 LRN [id number]) Hot Pack/Cold Pack Treatment Cold Pack Location R shoulder Patient Position Supine Treatment Duration (minutes) 5 Patient Tolerance Good PT-OP-T Assessment and Plan Start: 05/22/20 08:18 Freq: Status: Active Protocol: Document 07/18/20 15:08 LRN (Rec: 07/18/20 15:57 LRN [id number]) Physical Therapy Assessment Goals Five Impairment Sleep interruption Broiler Manager Goal (LTG) Pt will be able to push with R arm to turn over in bed without difficulty or without completely disturbing sleep. LTG Duration 07/21/20 (06/26/20: MET GOAL, no sleep disturbance due to R arm) Four Impairment Difficulty with personal hygiene care due to R shldr tightness/pain Short Term Goal (STG) Pt will be able to report wiping during toileting without tightness/tension/pain in the R shoulder. STG Duration 06/20/20 (07/06/20: MET GOAL) Broiler Manager Goal (LTG) Pt will be able to wash her hair without tightness/tension /pain in the R shoulder. (07/14/20: Able to wash her hair). LTG Duration 07/21/20 (07/14/20: MET GOAL) ) Three Impairment Decreased R shoulder strength (ER 4/5, IR 3-/5). Short Term Goal (STG) Pt will be able to flower picker food out of oven (3#) without R shoulder pain onset. STG Duration 06/20/20 Long-Term Goal (LTG) Pt will be able to put her bra on by hooking in the front and twisting it around to the back and she will be able to put her R arm into bra strap without pain. (07/06/20: Able to put on bra, getting arm in straps having twinges of pain) LTG Duration 07/21/20 (07/06/20: No pain putting on bra; pain getting arm in strap) Two Impairment Decreased R shoulder mobility Short Term Goal (STG) Pt will be able to reach up in cupboard (on step stool) without difficulty. STG Duration 06/20/20 Broiler Manager Goal (LTG) Pt will be able to take her shirt on/off without difficulty. LTG Duration 07/21/20 (07/06/20: Sometimes has difficulty, mainly due to stiffness) One Impairment Lacks appropriate self care HEP. Broiler Manager Goal (LTG) Pt will be independent with a self care HEP to manage her R shoulder pain. LTG Duration 07/21/20 (06/05/20: HEP issued for shoulder ROM & flex/rot strengthening) Progress Towards Goals Progress Comments Pt had no complaints of pain with an increase in reps and resistance during R shoulder strengthening. Assessment Summary Assessment Pt able to perform 6 2# casserole lifts without R shoulder pain before fatigue set in, but overall her strength is improving. Physical Therapy Plan Frequency and Duration Frequency of Treatment 2x/Week Plan of Care Start Date 05/22/20 Plan of Care End Date 07/21/20 Next Visit Focus/Plan Next Note Type Progress Note Next Visit Plan Reassess for PN. Increase ex tolerance with UBE strengthening, add CKC ex to address bed mobility and dressing needs; f/b ROM stretch for R shoulder IR. Progress shoulder rotator cuff and scapular strengthening exercises, end with modalities (CP) for pain with onset of activities if needed.
--- NOTE | 2020-07-21 15:42 | PT.OTN ---
Current Diagnoses Other specific arthropathies, not elsewhere classified, unspecified shoulder (07/21/20) Pain in right shoulder (07/21/20) Muscle weakness (generalized) (07/21/20) Other symptoms and signs involving the musculoskeletal system (07/21/20) Strain of muscle, fascia and tendon of other parts of biceps, unspecified arm, initial encounter (07/21/20) Physical Therapy Treatment Note PT-OP-A Visit Information Start: 05/22/20 08:18 Freq: Status: Active Protocol: Document 07/21/20 14:25 LRN (Rec: 07/21/20 15:28 LRN [id number]) Out-Patient Physical Therapy Visit Information Visit Information Visit Type Progress Note Visit Start Time 14:25 Visit Stop Time 15:12 Total Visit Minutes 47 Visit Number 11 Evaluation Information Evaluation Date 05/22/20 Precautions Precautions PMH: Depression, Seizure Disorder, Minor Concussion, Anxiety Disorder, PTSD, Episodic mood disorder, Family conflict, Muscle strain of chest wall. PT-OP-B Current Condition Start: 05/22/20 08:18 Freq: Status: Active Protocol: Document 05/22/20 11:21 LRN (Rec: 05/22/20 12:32 LRN [id number]) Current Condition History of Current Condition Onset Date 03/10/20 Current Complaints R forearm pn, biceps, doesn't function, shdr to Biceps&ear to shldr tender History of Current Condition Was found unconscious on the floor (supine with arms in protective posture) and 3 days later had severe R shoulder pain that radiated down the upper R arm and into the armpit region. When lifting the R arm she would have scapular pain. Neck also is stiff. As she was improving she heard a lot of cracking in the back of the neck and R shoulder for a month (mid March to April), but no cracking now . Of the fall she recalls she had a rough time in her sleep and woke to use bathroom, choosing to move slowly out of bed in order to not leak. She carefully put the CPAP away, then she remembers the motion of putting her feet on the floor and hanging the CPAP unit, and nothing after that. States she has functional limitations (see below) such as reaching behind her back and putting her bra on. Sometimes when using L arm gets pain in intrascapular area on the R. Prior Treatments and Tests States X-ray showed arthritis. Waiting for Orthopedic appt to be made. Future Testing and Treatments Planned Orthopedic appt. Treatment Goals Patient/Caregiver Goals Goal is to return R shoulder back to function: 1) Putting bra on (hook front and twist around body), can't twist it around, and has difficulty putting R arm into bra strap. 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 3) Reaching with R arm. 4) Tightness in R arm with washing hair. 5) Hard time taking shirt on/ off. 6) Tension with wiping. Prior Functional Status Baseline Function- ADL's Independent Baseline Function- Mobility Independent Baseline Function- Recreation/Hobbies Did home exercise requiring reaching overhead. Baseline Function- Other Reaching up in cupboard (on step stool) without difficulty . Current Functional Impairments (Reported) Functional Limitations- ADL's Washing hair, putting shirt on , toileting, turning over in bed because normally pushes with R arm. Functional Limitations- Recreation/ Not able to exercise with arms Hobbies . Functional Limitations- Other Limited w/reaching overhead into cupboard. Personal Factors Other Personal Factors That May Effect New Dx of arthritis Therapy/Recovery PT-OP-C Subjective Start: 05/22/20 08:18 Freq: Status: Active Protocol: Document 07/21/20 14:25 LRN (Rec: 07/21/20 15:37 LRN [id number]) Patient Questionnaires Upper Extremity Functional Scale UEFS Score 34.09 Upper Extremity Functional Scale 40 to 59% Impaired (Score 32- Impairment 47) OP-PT Pain Assessment Location R shoulder Pain Location Details Top of R shoulder and brachium , 2/10 anterior upper shoulder Intensity 3 Scale Used Numeric (0 - 10) Comments Pain Comments Pain range 2-3/10. PT-OP-E Functional Tests Start: 05/22/20 08:18 Freq: Status: Active Protocol: Document 05/22/20 11:21 LRN (Rec: 05/22/20 12:32 LRN [id number]) Functional Tests Apley's Scratch Test Action 2- Left T3 Action 2- Right T3 Action 3- Left T7 Action 3- Right L3 PT-OP-H Neuro Start: 05/22/20 08:18 Freq: Status: Active Protocol: Document 05/22/20 11:21 LRN (Rec: 05/22/20 12:32 LRN [id number]) Sensation Evaluation Gross Sensation Gross Sensation WNL Deep Tendon Reflex & Clonus Assessment Deep Tendon Reflex Bilateral Tricep Deep Tendon Reflex 0 Absent Bilateral Brachioradialis Deep Tendon Reflex 2+ Normal Bilateral Bicep Deep Tendon Reflex 2+ Normal PT-OP-J Posture/Palpation/Skin Start: 05/22/20 08:18 Freq: Status: Active Protocol: Document 05/22/20 11:21 LRN (Rec: 05/22/20 12:32 LRN [id number]) Posture Evaluation Comments Posture Comments In standing: Moderate Kyphosis and forward head posturing. Head is level on shoulders, normal arm positioning, slightly elevated R shoulder. Palpation Assessment Location Upper back Palpation Location R intrascapular region & R pectoralis Minor Palpation Details Decreased muscle tone. R shoulder Palpation Location R UT & R mid thoracic region, and R Deltoid Palpation Findings Muscle Guarding Palpation Details R UT & R mid thoracic region - increased muscle tone and muscle guarding, R rotation fo mid thoracic vertebrae. R Deltoid - atrophy PT-OP-K Range of Motion Start: 05/22/20 08:18 Freq: Status: Active Protocol: Document 07/21/20 14:25 LRN (Rec: 07/21/20 15:40 LRN [id number]) Shoulder Goniometric Range of Motion Shoulder Right Passive Testing Position Supine Flexion 168 Abduction 120 External Rotation at 90 degrees 90 Abduction Internal Rotation 62 Left Passive Shoulder ROM WFL Yes Testing Position Supine Flexion 168 Abduction 173 External Rotation at 90 degrees 100 Abduction Internal Rotation 80 PT-OP-L Special Tests Start: 05/22/20 08:18 Freq: Status: Active Protocol: Document 05/22/20 11:21 LRN (Rec: 05/22/20 12:32 LRN [id number]) Special Tests Cervical Spine Special Tests Foraminal Compression Test Results Negative bilaterally Vertebral Artery Test Results Negative Bilaterally Shoulder Special Tests Biceps Load II Test Test Results R Negative Elevation Impingement Test Results R shoulder Positive Comments Pain with forced flexion IR/Horizontal ADD Impingement Test Results R shoulder Positive Comments Pain at shoulder PT-OP-M Strength Start: 05/22/20 08:18 Freq: Status: Active Protocol: Document 05/22/20 11:21 LRN (Rec: 05/22/20 12:32 LRN [id number]) Cervical Spine Strength Cervical Spine Manual Muscle Testing Testing Position Sitting Reason Not Measured WFL Shoulder Strength Shoulder Manual Muscle Testing Right External Rotation 4 Good Internal Rotation 3- Fair- Comments Strength 5/5 except as indicated above Left Reason Not Measured WFL Comments Strength 5/5 Elbow/Forearm Strength Elbow and Forearm Manual Muscle Testing Right Reason Not Measured WFL Left Reason Not Measured WFL PT-OP-Q Treatments Start: 05/22/20 08:18 Freq: Status: Active Protocol: Document 07/21/20 14:25 LRN (Rec: 07/21/20 15:28 LRN [id number]) Cardio Equipment Upper Body Ergometer (UBE) Duration (Minutes) 8 RPM 80 Seat Position 13 Height 3.5 & 3.0 Other 4' fwd/bkwd Therapeutic Exercises Supine Exercises Shoulder AB Supine Exercise Name Shoulder AB - AAROM Side bilateral Reps/Minutes 4' Comments ROM taken Lat Pull down Supine Exercise Name Lat pull down Resistance Lev 2 & 2# Reps/Minutes 10x 2 Comments Pt fatigued at end, phys cuing needed for proper performance of ex Rubén Shoulder Flex @ 180 deg's Supine Exercise Name Rubén Shoulder Flex @ 180 deg's Side bilateral Reps/Minutes 3' Comments ROM taken Pec Stretch Supine Exercise Name Pec Harjit/Min stretch Side bilateral Reps/Minutes 2' Shoulder IR Supine Exercise Name Passive positional IR stretch Side bilateral Reps/Minutes 3' Comments ROM taken Shoulder ER Supine Exercise Name Football stretch Side bilateral Reps/Minutes 3' Comments ROM taken Standing Exercises PNF Standing Exercise Name [place] Golf Swing Reps/Minutes 10x Comments 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 (casserole mechanics) Standing Exercise Name Lifting casserole into oven movement Side bilateral Resistance Holding/lifting 3# Reps/Minutes 10x PT-OP-R Modalities Start: 05/22/20 08:18 Freq: Status: Active Protocol: Document 07/18/20 15:08 LRN (Rec: 07/18/20 15:57 LRN [id number]) Hot Pack/Cold Pack Treatment Cold Pack Location R shoulder Patient Position Supine Treatment Duration (minutes) 5 Patient Tolerance Good PT-OP-T Assessment and Plan Start: 05/22/20 08:18 Freq: Status: Active Protocol: Document 07/21/20 14:25 LRN (Rec: 07/21/20 15:28 LRN [id number]) Physical Therapy Assessment Rehab Potential Rehabilitation Potential Excellent Evaluation Complexity Number of Personal Factors/Comorbidities 3 or More Number of Body Systems Impaired 3 Clinical Presentation at Evaluation Evolving Impairments Impairments Activity Tolerance,ROM, Strength Goals Five Impairment Sleep interruption Halfway Goal (LTG) Pt will be able to push with R arm to turn over in bed without difficulty or without completely disturbing sleep. LTG Duration 07/21/20 (06/26/20: MET GOAL) Four Impairment Difficulty with personal hygiene care due to R shldr tightness/pain Short Term Goal (STG) Pt will be able to report wiping during toileting without tightness/tension/pain in the R shoulder. STG Duration 06/20/20 (07/06/20: MET GOAL) Halfway Goal (LTG) Pt will be able to wash her hair without tightness/tension /pain in the R shoulder. (07/14/20: Able to wash her hair). LTG Duration 07/21/20 (07/14/20: MET GOAL) ) Three Impairment Decreased R shoulder strength (ER 4/5, IR 3-/5). 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 (07/21/20: Pulling in R shoulder when lifting and leaning, or pulling out, into pretend oven 3# ) STG Duration 06/20/20 (07/21/20: Improved, 90% better) Head Baker Goal (LTG) Pt will be able to put her bra on by hooking in the front and twisting it around to the back and she will be able to put her R arm into bra strap without pain. (07/21/20: Able to twist it around to the back with twinges of pain; ~90% better. She can sometimes put her arm in the bra strap without twinges of pain) LTG Duration 07/21/20 (07/21/20: Improved, 90% better) Two Impairment Decreased R shoulder mobility Short Term Goal (STG) Pt will be able to reach up in cupboard (on step stool) without difficulty. (07/21/20: Able to perform a couple times, getting twinges of pain when stretching to reach). STG Duration 06/20/20 (07/21/20: Improving) Head Baker Goal (LTG) Pt will be able to take her shirt on/off without difficulty. (07/21/20: Must modify the way she does it to avoid pain) LTG Duration 07/21/20 (07/21/20: Improving) One Impairment Lacks appropriate self care HEP. Head Baker Goal (LTG) Pt will be independent with a self care HEP to manage her R shoulder pain. LTG Duration 07/21/20 (06/05/20: HEP issued for shoulder ROM & flex/rot strengthening) Progress Towards Goals Progress Towards Goals Progressing Toward Goals Progress Comments Goal 1: HEP initiated and progressing as appropriate. Goal 2: Mobility Progressing. Goal 3: Functional strength improving, 90% improved. Goals 4 & 5 MET. Assessment Summary Assessment Pt has done well with therapy and achieved 1/2 her goals. She shows limitation with functional strength and mobility of the R shoulder. Further therapy to progress her towards achieving her functional goals is appropriate. The pt will benefit from continuation of skilled physical therapy to improve the mobility and strength of her upper extremities with focus on the right side. Physical Therapy Plan Frequency and Duration Frequency of Treatment 2x/Week Plan of Care Start Date 07/21/20 Plan of Care End Date 09/22/20 Therapeutic Interventions Therapeutic Interventions Home Exercise Program,Manual Therapy,Neuromuscular Re- education,Patient/Caregiver Education,Self-Care/Home Management,Soft Tissue Mobilization,Taping, Therapeutic Exercises Modalities Cold Pack/Ice Massage,Hot Packs,Ultrasound Next Visit Focus/Plan Next Note Type Treatment Note Next Visit Plan Increase ex tolerance with UBE strengthening, progress PNF strengthening, add CKC ex to address bed mobility and dressing needs; f/b ROM stretch for R shoulder IR. Progress shoulder rotator cuff and scapular strengthening exercises, end with modalities (CP) for pain with onset of activities if needed.
--- NOTE | 2020-07-25 16:04 | PT.OTN ---
Current Diagnoses Other specific arthropathies, not elsewhere classified, unspecified shoulder (07/25/20) Pain in right shoulder (07/25/20) Muscle weakness (generalized) (07/25/20) Other symptoms and signs involving the musculoskeletal system (07/25/20) Strain of muscle, fascia and tendon of other parts of biceps, unspecified arm, initial encounter (07/25/20) Physical Therapy Treatment Note PT-OP-A Visit Information Start: 05/22/20 08:18 Freq: Status: Active Protocol: Document 07/25/20 15:03 LRN (Rec: 07/25/20 16:03 LRN [id number]) Out-Patient Physical Therapy Visit Information Visit Information Visit Type Treatment Note Visit Start Time 15:03 Visit Stop Time 15:49 Total Visit Minutes 46 Visit Number 12 Evaluation Information Evaluation Date 05/22/20 Precautions Precautions PMH: Depression, Seizure Disorder, Minor Concussion, Anxiety Disorder, PTSD, Episodic mood disorder, Family conflict, Muscle strain of chest wall. PT-OP-B Current Condition Start: 05/22/20 08:18 Freq: Status: Active Protocol: Document 05/22/20 11:21 LRN (Rec: 05/22/20 12:32 LRN [id number]) Current Condition History of Current Condition Onset Date 03/10/20 Current Complaints R forearm pn, biceps, doesn't function, shdr to Biceps&ear to shldr tender History of Current Condition Was found unconscious on the floor (supine with arms in protective posture) and 3 days later had severe R shoulder pain that radiated down the upper R arm and into the armpit region. When lifting the R arm she would have scapular pain. Neck also is stiff. As she was improving she heard a lot of cracking in the back of the neck and R shoulder for a month (mid March to April), but no cracking now . Of the fall she recalls she had a rough time in her sleep and woke to use bathroom, choosing to move slowly out of bed in order to not leak. She carefully put the CPAP away, then she remembers the motion of putting her feet on the floor and hanging the CPAP unit, and nothing after that. States she has functional limitations (see below) such as reaching behind her back and putting her bra on. Sometimes when using L arm gets pain in intrascapular area on the R. Prior Treatments and Tests States X-ray showed arthritis. Waiting for Orthopedic appt to be made. Future Testing and Treatments Planned Orthopedic appt. Treatment Goals Patient/Caregiver Goals Goal is to return R shoulder back to function: 1) Putting bra on (hook front and twist around body), can't twist it around, and has difficulty putting R arm into bra strap. 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 3) Reaching with R arm. 4) Tightness in R arm with washing hair. 5) Hard time taking shirt on/ off. 6) Tension with wiping. Prior Functional Status Baseline Function- ADL's Independent Baseline Function- Mobility Independent Baseline Function- Recreation/Hobbies Did home exercise requiring reaching overhead. Baseline Function- Other Reaching up in cupboard (on step stool) without difficulty . Current Functional Impairments (Reported) Functional Limitations- ADL's Washing hair, putting shirt on , toileting, turning over in bed because normally pushes with R arm. Functional Limitations- Recreation/ Not able to exercise with arms Hobbies . Functional Limitations- Other Limited w/reaching overhead into cupboard. Personal Factors Other Personal Factors That May Effect New Dx of arthritis Therapy/Recovery PT-OP-C Subjective Start: 05/22/20 08:18 Freq: Status: Active Protocol: Document 07/25/20 15:03 LRN (Rec: 07/25/20 16:03 LRN [id number]) OP-PT Subjective Patient Comments Patient Comments Rotating bra to the right and adjusting chest strap causes twinge discomfort on top of R shoulder. Taking T-Shirt off causes a twinge of pain. States she can reach to top of shelf when on step stool reaching. PT-OP-E Functional Tests Start: 05/22/20 08:18 Freq: Status: Active Protocol: Document 07/25/20 15:03 LRN (Rec: 07/25/20 16:03 LRN [id number]) Functional Tests Apley's Scratch Test Action 2- Left T3 Action 2- Right T3 Action 3- Left T7 Action 3- Right T10 PT-OP-H Neuro Start: 05/22/20 08:18 Freq: Status: Active Protocol: Document 05/22/20 11:21 LRN (Rec: 05/22/20 12:32 LRN [id number]) Sensation Evaluation Gross Sensation Gross Sensation WNL Deep Tendon Reflex & Clonus Assessment Deep Tendon Reflex Bilateral Tricep Deep Tendon Reflex 0 Absent Bilateral Brachioradialis Deep Tendon Reflex 2+ Normal Bilateral Bicep Deep Tendon Reflex 2+ Normal PT-OP-J Posture/Palpation/Skin Start: 05/22/20 08:18 Freq: Status: Active Protocol: Document 05/22/20 11:21 LRN (Rec: 05/22/20 12:32 LRN [id number]) Posture Evaluation Comments Posture Comments In standing: Moderate Kyphosis and forward head posturing. Head is level on shoulders, normal arm positioning, slightly elevated R shoulder. Palpation Assessment Location Upper back Palpation Location R intrascapular region & R pectoralis Minor Palpation Details Decreased muscle tone. R shoulder Palpation Location R UT & R mid thoracic region, and R Deltoid Palpation Findings Muscle Guarding Palpation Details R UT & R mid thoracic region - increased muscle tone and muscle guarding, R rotation fo mid thoracic vertebrae. R Deltoid - atrophy PT-OP-K Range of Motion Start: 05/22/20 08:18 Freq: Status: Active Protocol: Document 07/25/20 15:03 LRN (Rec: 07/25/20 16:03 LRN [id number]) Shoulder Goniometric Range of Motion Shoulder Left Active Shoulder ROM WFL Yes Testing Position Sitting Flexion 175 Abduction 180 Right Active Shoulder ROM WFL No Testing Position Sitting Flexion 175 Abduction 180 PT-OP-L Special Tests Start: 05/22/20 08:18 Freq: Status: Active Protocol: Document 05/22/20 11:21 LRN (Rec: 05/22/20 12:32 LRN [id number]) Special Tests Cervical Spine Special Tests Foraminal Compression Test Results Negative bilaterally Vertebral Artery Test Results Negative Bilaterally Shoulder Special Tests Biceps Load II Test Test Results R Negative Elevation Impingement Test Results R shoulder Positive Comments Pain with forced flexion IR/Horizontal ADD Impingement Test Results R shoulder Positive Comments Pain at shoulder PT-OP-M Strength Start: 05/22/20 08:18 Freq: Status: Active Protocol: Document 07/25/20 15:03 LRN (Rec: 07/25/20 16:03 LRN [id number]) Shoulder Strength Shoulder Manual Muscle Testing Right Flexion 5 Normal Abduction (C5) 5 Normal External Rotation 4+ Good+ Internal Rotation 5 Normal Left Comments Generally 5/5. PT-OP-Q Treatments Start: 05/22/20 08:18 Freq: Status: Active Protocol: Document 07/25/20 15:03 LRN (Rec: 07/25/20 16:03 LRN [id number]) Cardio Equipment Upper Body Ergometer (UBE) Duration (Minutes) 9 RPM 80 Seat Position 13 Height 3.5 & 3.0 Other 4.5' fwd/bkwd Therapeutic Exercises Supine Exercises Shoulder AB Supine Exercise Name Jumping Aristeo Side bilateral Reps/Minutes 16x Comments ROM taken Lat Pull down Supine Exercise Name Lat pull down Resistance Lev 2 & 2# Reps/Minutes 10x 3 Comments Pt fatigued at end, phys cuing needed for proper performance of ex Sitting Exercises Shoulder IR stretch Sitting Exercise Name Shoulder IR stretch Side right Reps/Minutes 2' Comments Right tighter than left. 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 Lifting (casserole mechanics) Standing Exercise Name Lifting casserole into oven movement Side bilateral Resistance Holding/lifting 3# Reps/Minutes 10x Other Exercises Overhead Serge Other Exercise Name Shoulder Flex ROM (alternating ROM) Side bilateral Reps/Minutes 3' PT-OP-R Modalities Start: 05/22/20 08:18 Freq: Status: Active Protocol: Document 07/18/20 15:08 LRN (Rec: 07/18/20 15:57 LRN [id number]) Hot Pack/Cold Pack Treatment Cold Pack Location R shoulder Patient Position Supine Treatment Duration (minutes) 5 Patient Tolerance Good PT-OP-T Assessment and Plan Start: 05/22/20 08:18 Freq: Status: Active Protocol: Document 07/25/20 15:03 LRN (Rec: 07/25/20 16:03 LRN [id number]) Physical Therapy Assessment Goals Five Impairment Sleep interruption Assisted Goal (LTG) Pt will be able to push with R arm to turn over in bed without difficulty or without completely disturbing sleep. LTG Duration 07/21/20 (06/26/20: MET GOAL) Four Impairment Difficulty with personal hygiene care due to R shldr tightness/pain Short Term Goal (STG) Pt will be able to report wiping during toileting without tightness/tension/pain in the R shoulder. STG Duration 06/20/20 (07/06/20: MET GOAL) Assisted Goal (LTG) Pt will be able to wash her hair without tightness/tension /pain in the R shoulder. (07/14/20: Able to wash her hair). LTG Duration 07/21/20 (07/14/20: MET GOAL) Three Impairment Decreased R shoulder strength (ER 4/5, IR 3-/5). Short Term Goal (STG) Pt will be able to pickle pumper food out of oven (3#) without R shoulder pain onset. (07/21/20: Pulling in R shoulder when lifting and leaning, or pulling out, into pretend oven 3# ) STG Duration 06/20/20 (07/21/20: Improved, 90% better) Assisted Goal (LTG) Pt will be able to put her bra on by hooking in the front and twisting it around to the back and she will be able to put her R arm into bra strap without pain. (07/21/20: Able to twist it around to the back with twinges of pain; ~90% better. She can sometimes put her arm in the bra strap without twinges of pain) LTG Duration 07/21/20 (07/21/20: Improved, 90% better) Two Impairment Decreased R shoulder mobility Short Term Goal (STG) Pt will be able to reach up in cupboard (on step stool) without difficulty. (07/21/20: Able to perform a couple times, getting twinges of pain when stretching to reach). STG Duration 06/20/20 (07/25/20: MET GOAL) Political Advisor Goal (LTG) Pt will be able to take her shirt on/off without difficulty. (07/21/20: Must modify the way she does it to avoid pain) LTG Duration 07/21/20 (07/25/20: Improving) One Impairment Lacks appropriate self care HEP. Political Advisor Goal (LTG) Pt will be independent with a self care HEP to manage her R shoulder pain. LTG Duration 07/21/20 (06/05/20: HEP issued for shoulder ROM & flex/rot strengthening) Progress Towards Goals Progress Comments STG #2 MET for reaching up to cupboard on step stool without difficulty. Assessment Summary Assessment Pt had only fair tolerance to exercises. She needed rest periods due to overheating/ pre-seizure feeling. Pt was able to complete therapy with only 2 rest periods. Pt R shoulder strength is much improved with strength assessed as 5/5 except with ER . She does have functional weakness with lifting a casserole into her oven, rotating her bra around to the right and taking her T-Shirt off by pulling it over her head. Her R shoulder IR mobility is restricted compared to the L, also hindering her ability to move her bra around to the right. Physical Therapy Plan Frequency and Duration Frequency of Treatment 2x/Week Plan of Care Start Date 07/21/20 Plan of Care End Date 09/22/20 Next Visit Focus/Plan Next Note Type Treatment Note Next Visit Plan Increase ex tolerance with UBE strengthening, progress PNF strengthening, add CKC ex to address dressing needs; f/b ROM stretch for R shoulder IR. Progress R shoulder ER, AB and Biceps strengthening exercises, and ROM for R shoulder IR ROM; end with modalities (CP) for pain with onset of activities as needed.
--- NOTE | 2020-07-28 16:00 | PT.OTN ---
Current Diagnoses Other specific arthropathies, not elsewhere classified, unspecified shoulder (07/28/20) Pain in right shoulder (07/28/20) Muscle weakness (generalized) (07/28/20) Other symptoms and signs involving the musculoskeletal system (07/28/20) Strain of muscle, fascia and tendon of other parts of biceps, unspecified arm, initial encounter (07/28/20) Physical Therapy Treatment Note PT-OP-A Visit Information Start: 05/22/20 08:18 Freq: Status: Active Protocol: Document 07/28/20 15:13 LRN (Rec: 07/28/20 16:00 LRN [id number]) Out-Patient Physical Therapy Visit Information Visit Information Visit Type Treatment Note Visit Start Time 15:13 Visit Stop Time 15:52 Total Visit Minutes 39 Visit Number 13 Evaluation Information Evaluation Date 05/22/20 Precautions Precautions PMH: Depression, Seizure Disorder, Minor Concussion, Anxiety Disorder, PTSD, Episodic mood disorder, Family conflict, Muscle strain of chest wall. PT-OP-B Current Condition Start: 05/22/20 08:18 Freq: Status: Active Protocol: Document 05/22/20 11:21 LRN (Rec: 05/22/20 12:32 LRN [id number]) Current Condition History of Current Condition Onset Date 03/10/20 Current Complaints R forearm pn, biceps, doesn't function, shdr to Biceps&ear to shldr tender History of Current Condition Was found unconscious on the floor (supine with arms in protective posture) and 3 days later had severe R shoulder pain that radiated down the upper R arm and into the armpit region. When lifting the R arm she would have scapular pain. Neck also is stiff. As she was improving she heard a lot of cracking in the back of the neck and R shoulder for a month (mid March to April), but no cracking now . Of the fall she recalls she had a rough time in her sleep and woke to use bathroom, choosing to move slowly out of bed in order to not leak. She carefully put the CPAP away, then she remembers the motion of putting her feet on the floor and hanging the CPAP unit, and nothing after that. States she has functional limitations (see below) such as reaching behind her back and putting her bra on. Sometimes when using L arm gets pain in intrascapular area on the R. Prior Treatments and Tests States X-ray showed arthritis. Waiting for Orthopedic appt to be made. Future Testing and Treatments Planned Orthopedic appt. Treatment Goals Patient/Caregiver Goals Goal is to return R shoulder back to function: 1) Putting bra on (hook front and twist around body), can't twist it around, and has difficulty putting R arm into bra strap. 2) clean up person food out of oven (3 #). 3) Reaching with R arm. 4) Tightness in R arm with washing hair. 5) Hard time taking shirt on/ off. 6) Tension with wiping. Prior Functional Status Baseline Function- ADL's Independent Baseline Function- Mobility Independent Baseline Function- Recreation/Hobbies Did home exercise requiring reaching overhead. Baseline Function- Other Reaching up in cupboard (on step stool) without difficulty . Current Functional Impairments (Reported) Functional Limitations- ADL's Washing hair, putting shirt on , toileting, turning over in bed because normally pushes with R arm. Functional Limitations- Recreation/ Not able to exercise with arms Hobbies . Functional Limitations- Other Limited w/reaching overhead into cupboard. Personal Factors Other Personal Factors That May Effect New Dx of arthritis Therapy/Recovery PT-OP-C Subjective Start: 05/22/20 08:18 Freq: Status: Active Protocol: Document 07/28/20 15:13 LRN (Rec: 07/28/20 16:00 LRN [id number]) OP-PT Subjective Patient Comments Patient Comments Feeling better today, stronger . PT-OP-E Functional Tests Start: 05/22/20 08:18 Freq: Status: Active Protocol: Document 07/25/20 15:03 LRN (Rec: 07/25/20 16:03 LRN [id number]) Functional Tests Apley's Scratch Test Action 2- Left T3 Action 2- Right T3 Action 3- Left T7 Action 3- Right T10 PT-OP-H Neuro Start: 05/22/20 08:18 Freq: Status: Active Protocol: Document 05/22/20 11:21 LRN (Rec: 05/22/20 12:32 LRN [id number]) Sensation Evaluation Gross Sensation Gross Sensation WNL Deep Tendon Reflex & Clonus Assessment Deep Tendon Reflex Bilateral Tricep Deep Tendon Reflex 0 Absent Bilateral Brachioradialis Deep Tendon Reflex 2+ Normal Bilateral Bicep Deep Tendon Reflex 2+ Normal PT-OP-J Posture/Palpation/Skin Start: 05/22/20 08:18 Freq: Status: Active Protocol: Document 05/22/20 11:21 LRN (Rec: 05/22/20 12:32 LRN [id number]) Posture Evaluation Comments Posture Comments In standing: Moderate Kyphosis and forward head posturing. Head is level on shoulders, normal arm positioning, slightly elevated R shoulder. Palpation Assessment Location Upper back Palpation Location R intrascapular region & R pectoralis Minor Palpation Details Decreased muscle tone. R shoulder Palpation Location R UT & R mid thoracic region, and R Deltoid Palpation Findings Muscle Guarding Palpation Details R UT & R mid thoracic region - increased muscle tone and muscle guarding, R rotation fo mid thoracic vertebrae. R Deltoid - atrophy PT-OP-K Range of Motion Start: 05/22/20 08:18 Freq: Status: Active Protocol: Document 07/25/20 15:03 LRN (Rec: 07/25/20 16:03 LRN [id number]) Shoulder Goniometric Range of Motion Shoulder Left Active Shoulder ROM WFL Yes Testing Position Sitting Flexion 175 Abduction 180 Right Active Shoulder ROM WFL No Testing Position Sitting Flexion 175 Abduction 180 PT-OP-L Special Tests Start: 05/22/20 08:18 Freq: Status: Active Protocol: Document 05/22/20 11:21 LRN (Rec: 05/22/20 12:32 LRN [id number]) Special Tests Cervical Spine Special Tests Foraminal Compression Test Results Negative bilaterally Vertebral Artery Test Results Negative Bilaterally Shoulder Special Tests Biceps Load II Test Test Results R Negative Elevation Impingement Test Results R shoulder Positive Comments Pain with forced flexion IR/Horizontal ADD Impingement Test Results R shoulder Positive Comments Pain at shoulder PT-OP-M Strength Start: 05/22/20 08:18 Freq: Status: Active Protocol: Document 07/25/20 15:03 LRN (Rec: 07/25/20 16:03 LRN [id number]) Shoulder Strength Shoulder Manual Muscle Testing Right Flexion 5 Normal Abduction (C5) 5 Normal External Rotation 4+ Good+ Internal Rotation 5 Normal Left Comments Generally 5/5. PT-OP-Q Treatments Start: 05/22/20 08:18 Freq: Status: Active Protocol: Document 07/28/20 15:13 LRN (Rec: 07/28/20 16:00 LRN [id number]) Cardio Equipment Upper Body Ergometer (UBE) Duration (Minutes) 9 RPM 80 Seat Position 13 Height 4.0 (2.5 min) & 3.5 Other fwd/bkwd Therapeutic Exercises Sitting Exercises UE CKC-Upper T/S rot Sitting Exercise Name Holding railing for thoracic rot with arms Upper thoracic ext Sitting Exercise Name Upper thoracic ext w/arms on table into shoulder flex for Standing Exercises Railing push ups Standing Exercise Name Railing push ups Reps/Minutes 10x Jumping Sonal Standing Exercise Name Arm jumping sonal Reps/Minutes 10x 2 PNF Standing Exercise Name [place] Wood Chop Side bilateral Resistance Lev 2 Reps/Minutes 15 x 2 Comments 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 Lifting (casserole mechanics) Standing Exercise Name Lifting casserole into oven movement Side bilateral Resistance Holding/lifting 4# Reps/Minutes 10x Comments Phys cuing to Low back, v. cuing for proper body mechanics Horiz AB/AD Standing Exercise Name Rotating Bra motion Side bilateral Equipment Used Lev 1 Reps/Minutes 10x each side Other Exercises Overhead Serge Other Exercise Name Shoulder Flex ROM (alternating ROM) Side bilateral Reps/Minutes 3' PT-OP-R Modalities Start: 05/22/20 08:18 Freq: Status: Active Protocol: Document 07/18/20 15:08 LRN (Rec: 07/18/20 15:57 LRN [id number]) Hot Pack/Cold Pack Treatment Cold Pack Location R shoulder Patient Position Supine Treatment Duration (minutes) 5 Patient Tolerance Good PT-OP-T Assessment and Plan Start: 05/22/20 08:18 Freq: Status: Active Protocol: Document 07/28/20 15:13 LRN (Rec: 07/28/20 16:00 LRN [id number]) Physical Therapy Assessment Goals Three Impairment Decreased R shoulder strength (ER 4/5, IR 3-/5). 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 (07/21/20: Pulling in R shoulder when lifting and leaning, or pulling out, into pretend oven 3# ) STG Duration 06/20/20 (07/21/20: Improved, 90% better) Retirement Goal (LTG) Pt will be able to put her bra on by hooking in the front and twisting it around to the back and she will be able to put her R arm into bra strap without pain. (07/21/20: Able to twist it around to the back with twinges of pain; ~90% better. She can sometimes put her arm in the bra strap without twinges of pain) LTG Duration 07/21/20 (07/21/20: Improved, 90% better) Two Impairment Decreased R shoulder mobility Short Term Goal (STG) Pt will be able to reach up in cupboard (on step stool) without difficulty. (07/21/20: Able to perform a couple times, getting twinges of pain when stretching to reach). 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 (07/21/20: Must modify the way she does it to avoid pain) LTG Duration 07/21/20 (07/25/20: Improving) One Impairment Lacks appropriate self care HEP. Retirement Goal (LTG) Pt will be independent with a self care HEP to manage her R shoulder pain. LTG Duration 07/21/20 (06/05/20: HEP issued for shoulder ROM & flex/rot strengthening) Progress Towards Goals Progress Towards Goals Progressing Toward Goals Progress Comments Pt able to lift casserole motion with 4# wgt; therefore pt strength is improving. Assessment Summary Assessment Pt tolerated strengthening very well today without complaints of overheating or pain. She was able to keep exercising without requesting rests. Physical Therapy Plan Frequency and Duration Frequency of Treatment 2x/Week Plan of Care Start Date 07/21/20 Plan of Care End Date 09/22/20 Next Visit Focus/Plan Next Note Type Treatment Note Next Visit Plan Increase ex tolerance with UBE strengthening, progress PNF strengthening, add T-Band shoulder press ex (and add to HEP) to help address dressing needs; f/b ROM stretch for R shoulder IR. Progress R shoulder ER, AB and Biceps strengthening exercises, and ROM for R shoulder IR ROM; end with modalities (CP) for pain as needed.
--- NOTE | 2020-08-01 15:57 | PT.OTN ---
Current Diagnoses Other specific arthropathies, not elsewhere classified, unspecified shoulder (08/01/20) Pain in right shoulder (08/01/20) Muscle weakness (generalized) (08/01/20) Other symptoms and signs involving the musculoskeletal system (08/01/20) Strain of muscle, fascia and tendon of other parts of biceps, unspecified arm, initial encounter (08/01/20) Physical Therapy Treatment Note PT-OP-A Visit Information Start: 05/22/20 08:18 Freq: Status: Active Protocol: Document 08/01/20 15:08 LRN (Rec: 08/01/20 15:57 LRN [id number]) Out-Patient Physical Therapy Visit Information Visit Information Visit Type Treatment Note Visit Start Time 15:08 Visit Stop Time 15:52 Total Visit Minutes 44 Visit Number 14 Evaluation Information Evaluation Date 05/22/20 Precautions Precautions PMH: Depression, Seizure Disorder, Minor Concussion, Anxiety Disorder, PTSD, Episodic mood disorder, Family conflict, Muscle strain of chest wall. PT-OP-B Current Condition Start: 05/22/20 08:18 Freq: Status: Active Protocol: Document 05/22/20 11:21 LRN (Rec: 05/22/20 12:32 LRN [id number]) Current Condition History of Current Condition Onset Date 03/10/20 Current Complaints R forearm pn, biceps, doesn't function, shdr to Biceps&ear to shldr tender History of Current Condition Was found unconscious on the floor (supine with arms in protective posture) and 3 days later had severe R shoulder pain that radiated down the upper R arm and into the armpit region. When lifting the R arm she would have scapular pain. Neck also is stiff. As she was improving she heard a lot of cracking in the back of the neck and R shoulder for a month (mid March to April), but no cracking now . Of the fall she recalls she had a rough time in her sleep and woke to use bathroom, choosing to move slowly out of bed in order to not leak. She carefully put the CPAP away, then she remembers the motion of putting her feet on the floor and hanging the CPAP unit, and nothing after that. States she has functional limitations (see below) such as reaching behind her back and putting her bra on. Sometimes when using L arm gets pain in intrascapular area on the R. Prior Treatments and Tests States X-ray showed arthritis. Waiting for Orthopedic appt to be made. Future Testing and Treatments Planned Orthopedic appt. Treatment Goals Patient/Caregiver Goals Goal is to return R shoulder back to function: 1) Putting bra on (hook front and twist around body), can't twist it around, and has difficulty putting R arm into bra strap. 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 3) Reaching with R arm. 4) Tightness in R arm with washing hair. 5) Hard time taking shirt on/ off. 6) Tension with wiping. Prior Functional Status Baseline Function- ADL's Independent Baseline Function- Mobility Independent Baseline Function- Recreation/Hobbies Did home exercise requiring reaching overhead. Baseline Function- Other Reaching up in cupboard (on step stool) without difficulty . Current Functional Impairments (Reported) Functional Limitations- ADL's Washing hair, putting shirt on , toileting, turning over in bed because normally pushes with R arm. Functional Limitations- Recreation/ Not able to exercise with arms Hobbies . Functional Limitations- Other Limited w/reaching overhead into cupboard. Personal Factors Other Personal Factors That May Effect New Dx of arthritis Therapy/Recovery PT-OP-C Subjective Start: 05/22/20 08:18 Freq: Status: Active Protocol: Document 08/01/20 15:08 LRN (Rec: 08/01/20 15:57 LRN [id number]) OP-PT Subjective Patient Comments Patient Comments States her shoulder has been pretty good, better than last week. A couple moments of twinges. Made cookies, able to stir and put in/out oven without pain. PT-OP-E Functional Tests Start: 05/22/20 08:18 Freq: Status: Active Protocol: Document 07/25/20 15:03 LRN (Rec: 07/25/20 16:03 LRN [id number]) Functional Tests Apley's Scratch Test Action 2- Left T3 Action 2- Right T3 Action 3- Left T7 Action 3- Right T10 PT-OP-H Neuro Start: 05/22/20 08:18 Freq: Status: Active Protocol: Document 05/22/20 11:21 LRN (Rec: 05/22/20 12:32 LRN [id number]) Sensation Evaluation Gross Sensation Gross Sensation WNL Deep Tendon Reflex & Clonus Assessment Deep Tendon Reflex Bilateral Tricep Deep Tendon Reflex 0 Absent Bilateral Brachioradialis Deep Tendon Reflex 2+ Normal Bilateral Bicep Deep Tendon Reflex 2+ Normal PT-OP-J Posture/Palpation/Skin Start: 05/22/20 08:18 Freq: Status: Active Protocol: Document 05/22/20 11:21 LRN (Rec: 05/22/20 12:32 LRN [id number]) Posture Evaluation Comments Posture Comments In standing: Moderate Kyphosis and forward head posturing. Head is level on shoulders, normal arm positioning, slightly elevated R shoulder. Palpation Assessment Location Upper back Palpation Location R intrascapular region & R pectoralis Minor Palpation Details Decreased muscle tone. R shoulder Palpation Location R UT & R mid thoracic region, and R Deltoid Palpation Findings Muscle Guarding Palpation Details R UT & R mid thoracic region - increased muscle tone and muscle guarding, R rotation fo mid thoracic vertebrae. R Deltoid - atrophy PT-OP-K Range of Motion Start: 05/22/20 08:18 Freq: Status: Active Protocol: Document 07/25/20 15:03 LRN (Rec: 07/25/20 16:03 LRN [id number]) Shoulder Goniometric Range of Motion Shoulder Left Active Shoulder ROM WFL Yes Testing Position Sitting Flexion 175 Abduction 180 Right Active Shoulder ROM WFL No Testing Position Sitting Flexion 175 Abduction 180 PT-OP-L Special Tests Start: 05/22/20 08:18 Freq: Status: Active Protocol: Document 05/22/20 11:21 LRN (Rec: 05/22/20 12:32 LRN [id number]) Special Tests Cervical Spine Special Tests Foraminal Compression Test Results Negative bilaterally Vertebral Artery Test Results Negative Bilaterally Shoulder Special Tests Biceps Load II Test Test Results R Negative Elevation Impingement Test Results R shoulder Positive Comments Pain with forced flexion IR/Horizontal ADD Impingement Test Results R shoulder Positive Comments Pain at shoulder PT-OP-M Strength Start: 05/22/20 08:18 Freq: Status: Active Protocol: Document 07/25/20 15:03 LRN (Rec: 07/25/20 16:03 LRN [id number]) Shoulder Strength Shoulder Manual Muscle Testing Right Flexion 5 Normal Abduction (C5) 5 Normal External Rotation 4+ Good+ Internal Rotation 5 Normal Left Comments Generally 5/5. PT-OP-Q Treatments Start: 05/22/20 08:18 Freq: Status: Active Protocol: Document 08/01/20 15:08 LRN (Rec: 08/01/20 15:57 LRN [id number]) Cardio Equipment Upper Body Ergometer (UBE) Duration (Minutes) 10 RPM 80 Seat Position 13 Height 3 Other 5' fwd/bkwd Therapeutic Exercises Standing Exercises PNF Golf swing Standing Exercise Name Double golf swing (alternate arm on top) Reps/Minutes 10x IR stretching Standing Exercise Name Hands up back Side right Reps/Minutes 2' Railing push ups Standing Exercise Name Railing push ups Reps/Minutes 10x 2 Jumping Sonal Standing Exercise Name Arm jumping sonal Reps/Minutes 10x 2 PNF Standing Exercise Name [place] Wood Chop Side bilateral Resistance Lev 2 Reps/Minutes 15 x 2 Comments 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 Lifting (casserole mechanics) Standing Exercise Name Lifting casserole into oven movement Side bilateral Resistance Holding/lifting 4# Reps/Minutes 10x Comments Phys cuing to Low back, v. cuing for proper body mechanics Horiz AB/AD Standing Exercise Name Rotating Bra motion Side bilateral Equipment Used Lev 1 Reps/Minutes 10x each side Chest press Standing Exercise Name Chest press Side bilateral Resistance Lev 1 & Lev 2 T-Band Reps/Minutes 15x each Other Exercises Overhead Serge Other Exercise Name Shoulder Flex ROM (alternating ROM) Side bilateral Reps/Minutes 3' Self-Care/Home Management Treatment Education Patient Education Home Exercise Program Activities Self-Care/Home Management Activities Issued & reviewed HEP: Chest press w/TBand & Jumping Sonal ex. I/S pt in bilateral golf swing PNF exercise. PT-OP-R Modalities Start: 05/22/20 08:18 Freq: Status: Active Protocol: Document 07/18/20 15:08 LRN (Rec: 07/18/20 15:57 LRN [id number]) Hot Pack/Cold Pack Treatment Cold Pack Location R shoulder Patient Position Supine Treatment Duration (minutes) 5 Patient Tolerance Good PT-OP-T Assessment and Plan Start: 05/22/20 08:18 Freq: Status: Active Protocol: Document 08/01/20 15:08 LRN (Rec: 08/01/20 15:57 LRN [id number]) Physical Therapy Assessment Goals Three Impairment Decreased R shoulder strength (ER 4/5, IR 3-/5). Short Term Goal (STG) Pt will be able to pickling solution maker food out of oven (3#) without R shoulder pain onset. (07/21/20: Pulling in R shoulder when lifting and leaning, or pulling out, into pretend oven 3# ) STG Duration 06/20/20 (07/21/20: Improved, 90% better) Snf Goal (LTG) Pt will be able to put her bra on by hooking in the front and twisting it around to the back and she will be able to put her R arm into bra strap without pain. (07/21/20: Able to twist it around to the back with twinges of pain; ~90% better. She can sometimes put her arm in the bra strap without twinges of pain) LTG Duration 07/21/20 (07/21/20: Improved, 90% better) Two Impairment Decreased R shoulder mobility Short Term Goal (STG) Pt will be able to reach up in cupboard (on step stool) without difficulty. (07/21/20: Able to perform a couple times, getting twinges of pain when stretching to reach). STG Duration 06/20/20 (07/25/20: MET GOAL) Snf Goal (LTG) Pt will be able to take her shirt on/off without difficulty. (07/21/20: Must modify the way she does it to avoid pain) LTG Duration 07/21/20 (07/25/20: Improving) One Impairment Lacks appropriate self care HEP. 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 LTG Duration 07/21/20 (08/01/20: Progressing HEP) Progress Towards Goals Progress Comments Pt able to make and bake cookies without onset of pain. Assessment Summary Assessment Pt able to do baking with light myers without onset of pain. Pt encouraged to try casserole weight. Physical Therapy Plan Frequency and Duration Frequency of Treatment 2x/Week Plan of Care Start Date 07/21/20 Plan of Care End Date 09/22/20 Next Visit Focus/Plan Next Note Type Treatment Note Next Visit Plan Increase ex tolerance with UBE strengthening with increase in resistance, PNF (double golf swing) strengthening to help address dressing needs, review HEP issued; ROM stretch for R shoulder IR. Progress R shoulder ER, AB and Biceps strengthening exercises; end with modalities (CP) for pain as needed.
--- NOTE | 2020-08-04 16:50 | PT.OTN ---
Current Diagnoses Other specific arthropathies, not elsewhere classified, unspecified shoulder (08/04/20) Pain in right shoulder (08/04/20) Muscle weakness (generalized) (08/04/20) Other symptoms and signs involving the musculoskeletal system (08/04/20) Strain of muscle, fascia and tendon of other parts of biceps, unspecified arm, initial encounter (08/04/20) Physical Therapy Treatment Note PT-OP-A Visit Information Start: 05/22/20 08:18 Freq: Status: Active Protocol: Document 08/04/20 15:01 LRN (Rec: 08/04/20 15:33 LRN [id number]) Out-Patient Physical Therapy Visit Information Visit Information Visit Type Treatment Note Visit Start Time 15:01 Visit Stop Time 16:03 Total Visit Minutes 62 Visit Number 15 Evaluation Information Evaluation Date 05/22/20 Precautions Precautions PMH: Depression, Seizure Disorder, Minor Concussion, Anxiety Disorder, PTSD, Episodic mood disorder, Family conflict, Muscle strain of chest wall. PT-OP-B Current Condition Start: 05/22/20 08:18 Freq: Status: Active Protocol: Document 05/22/20 11:21 LRN (Rec: 05/22/20 12:32 LRN [id number]) Current Condition History of Current Condition Onset Date 03/10/20 Current Complaints R forearm pn, biceps, doesn't function, shdr to Biceps&ear to shldr tender History of Current Condition Was found unconscious on the floor (supine with arms in protective posture) and 3 days later had severe R shoulder pain that radiated down the upper R arm and into the armpit region. When lifting the R arm she would have scapular pain. Neck also is stiff. As she was improving she heard a lot of cracking in the back of the neck and R shoulder for a month (mid March to April), but no cracking now . Of the fall she recalls she had a rough time in her sleep and woke to use bathroom, choosing to move slowly out of bed in order to not leak. She carefully put the CPAP away, then she remembers the motion of putting her feet on the floor and hanging the CPAP unit, and nothing after that. States she has functional limitations (see below) such as reaching behind her back and putting her bra on. Sometimes when using L arm gets pain in intrascapular area on the R. Prior Treatments and Tests States X-ray showed arthritis. Waiting for Orthopedic appt to be made. Future Testing and Treatments Planned Orthopedic appt. Treatment Goals Patient/Caregiver Goals Goal is to return R shoulder back to function: 1) Putting bra on (hook front and twist around body), can't twist it around, and has difficulty putting R arm into bra strap. 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 3) Reaching with R arm. 4) Tightness in R arm with washing hair. 5) Hard time taking shirt on/ off. 6) Tension with wiping. Prior Functional Status Baseline Function- ADL's Independent Baseline Function- Mobility Independent Baseline Function- Recreation/Hobbies Did home exercise requiring reaching overhead. Baseline Function- Other Reaching up in cupboard (on step stool) without difficulty . Current Functional Impairments (Reported) Functional Limitations- ADL's Washing hair, putting shirt on , toileting, turning over in bed because normally pushes with R arm. Functional Limitations- Recreation/ Not able to exercise with arms Hobbies . Functional Limitations- Other Limited w/reaching overhead into cupboard. Personal Factors Other Personal Factors That May Effect New Dx of arthritis Therapy/Recovery PT-OP-C Subjective Start: 05/22/20 08:18 Freq: Status: Active Protocol: Document 08/04/20 15:01 LRN (Rec: 08/04/20 15:33 LRN [id number]) OP-PT Subjective Patient Comments Patient Comments States she has some pain in the R posterior shoulder ( subscapular region) because when trying to pull on couch handle to get leg lifted, she pulled a little harder and twisted to the left and felt something occur in the posterior shoulder. Pain decreased after US from 4/10 to 2/10 after treatment. Moving off plinth pt reported soreness under R breast and sudden feeling of being overheated and suffocated by mask. PT-OP-E Functional Tests Start: 05/22/20 08:18 Freq: Status: Active Protocol: Document 07/25/20 15:03 LRN (Rec: 07/25/20 16:03 LRN [id number]) Functional Tests Apley's Scratch Test Action 2- Left T3 Action 2- Right T3 Action 3- Left T7 Action 3- Right T10 PT-OP-H Neuro Start: 05/22/20 08:18 Freq: Status: Active Protocol: Document 05/22/20 11:21 LRN (Rec: 05/22/20 12:32 LRN [id number]) Sensation Evaluation Gross Sensation Gross Sensation WNL Deep Tendon Reflex & Clonus Assessment Deep Tendon Reflex Bilateral Tricep Deep Tendon Reflex 0 Absent Bilateral Brachioradialis Deep Tendon Reflex 2+ Normal Bilateral Bicep Deep Tendon Reflex 2+ Normal PT-OP-J Posture/Palpation/Skin Start: 05/22/20 08:18 Freq: Status: Active Protocol: Document 05/22/20 11:21 LRN (Rec: 05/22/20 12:32 LRN [id number]) Posture Evaluation Comments Posture Comments In standing: Moderate Kyphosis and forward head posturing. Head is level on shoulders, normal arm positioning, slightly elevated R shoulder. Palpation Assessment Location Upper back Palpation Location R intrascapular region & R pectoralis Minor Palpation Details Decreased muscle tone. R shoulder Palpation Location R UT & R mid thoracic region, and R Deltoid Palpation Findings Muscle Guarding Palpation Details R UT & R mid thoracic region - increased muscle tone and muscle guarding, R rotation fo mid thoracic vertebrae. R Deltoid - atrophy PT-OP-K Range of Motion Start: 05/22/20 08:18 Freq: Status: Active Protocol: Document 07/25/20 15:03 LRN (Rec: 07/25/20 16:03 LRN [id number]) Shoulder Goniometric Range of Motion Shoulder Left Active Shoulder ROM WFL Yes Testing Position Sitting Flexion 175 Abduction 180 Right Active Shoulder ROM WFL No Testing Position Sitting Flexion 175 Abduction 180 PT-OP-L Special Tests Start: 05/22/20 08:18 Freq: Status: Active Protocol: Document 05/22/20 11:21 LRN (Rec: 05/22/20 12:32 LRN [id number]) Special Tests Cervical Spine Special Tests Foraminal Compression Test Results Negative bilaterally Vertebral Artery Test Results Negative Bilaterally Shoulder Special Tests Biceps Load II Test Test Results R Negative Elevation Impingement Test Results R shoulder Positive Comments Pain with forced flexion IR/Horizontal ADD Impingement Test Results R shoulder Positive Comments Pain at shoulder PT-OP-M Strength Start: 05/22/20 08:18 Freq: Status: Active Protocol: Document 07/25/20 15:03 LRN (Rec: 07/25/20 16:03 LRN [id number]) Shoulder Strength Shoulder Manual Muscle Testing Right Flexion 5 Normal Abduction (C5) 5 Normal External Rotation 4+ Good+ Internal Rotation 5 Normal Left Comments Generally 5/5. PT-OP-Q Treatments Start: 05/22/20 08:18 Freq: Status: Active Protocol: Document 08/04/20 15:01 LRN (Rec: 08/04/20 15:33 LRN [id number]) Therapeutic Exercises Supine Exercises R intrascapular stretch Supine Exercise Name Stretch into shoulder horiz AD Side right Reps/Minutes 2' Shoulder rolls Supine Exercise Name Shoulder rolls btn ER/IR stretching Side bilateral Reps/Minutes 2' Comments Pt moves slowly & carefully Windshield Wipe Supine Exercise Name Active shoulder ER/IR Side right Reps/Minutes 15x 2 Comments Pt moves slowly & carefully scap squeeze Supine Exercise Name Scapular squeezes Side bilateral Reps/Minutes 2' Comments Pt moves slowly & carefully Sitting Exercises Shoulder IR stretch Sitting Exercise Name Chin tucked, moving hands up back Reps/Minutes 15x Comments Pt not able to move far, moves slowly Upper thoracic ext Sitting Exercise Name Upper thoracic ext w/arms by sides, chin tucked, chest lift Reps/Minutes 15x Comments Pt moves slowly & carefully Standing Exercises Scapular depression Standing Exercise Name Hands on wall in full flex with scapular depression Side bilateral Reps/Minutes 15x Comments Phys cuing with R side. Chin tuck/scap squeeze Standing Exercise Name Hands behind back, chin tuck holding with scap squeezes. Self-Care/Home Management Treatment Education Patient Education Pain Management Other Education Pt educated in thoracic/spine anatomy to educate on reason for pain along R rib. Recommended for pain management that pt avoid rotation of trunk and to use cryotherapy as needed for pain . Pt advised to contact MD regarding use of medications. Activities Self-Care/Home Management Activities Pt instructed if pain is severe she could go to ER for help with pain management. PT-OP-R Modalities Start: 05/22/20 08:18 Freq: Status: Active Protocol: Document 08/04/20 15:01 LRN (Rec: 08/04/20 15:33 LRN [id number]) Hot Pack/Cold Pack Treatment Cold Pack Location R upper back Treatment Duration (minutes) 10 Comments Pt in hooklie with back elevated 2 pillows under head. Ultrasound Therapy Treatment R Rhomboids Treatment Duration (minutes) 8 Patient Position Sidelying Coupling Medium Ultrasound Gel Applicator Size (cm2) 10 Mode Setting Pulsed Duty Cycle 50% Intensity Setting (w/cm2) 1.5 Comments 1.5 5' > 1.7 2' > 1.5 3' PT-OP-T Assessment and Plan Start: 05/22/20 08:18 Freq: Status: Active Protocol: Document 08/04/20 15:01 LRN (Rec: 08/04/20 15:33 LRN [id number]) Physical Therapy Assessment Goals Three Impairment Decreased R shoulder strength (ER 4/5, IR 3-/5). 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 (07/21/20: Able to twist it around to the back with twinges of pain; ~90% better. She can sometimes put her arm in the bra strap without twinges of pain) LTG Duration 07/21/20 (07/21/20: Improved, 90% better) Two Impairment Decreased R shoulder mobility Short Term Goal (STG) Pt will be able to reach up in cupboard (on step stool) without difficulty. (07/21/20: Able to perform a couple times, getting twinges of pain when stretching to reach). 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 (07/21/20: Must modify the way she does it to avoid pain) LTG Duration 07/21/20 (07/25/20: Improving) One Impairment Lacks appropriate self care HEP. Pellet Mill Operator Goal (LTG) Pt will be independent with a self care HEP to manage her R shoulder pain. LTG Duration 07/21/20 (08/01/20: Progressing HEP) Assessment Summary Assessment Good response to exercise until the last exercise. Pt had pain radiating under R breast after a short rest period, after the last exercise of Isometric shoulder max flex with scapular depression. Pt then reported a sensitivity reaction to pain /mask restricting breathing. She required water and use of ice to the R back at end of treatment. Physical Therapy Plan Frequency and Duration Frequency of Treatment 2x/Week Plan of Care Start Date 07/21/20 Plan of Care End Date 09/22/20 Next Visit Focus/Plan Next Note Type Treatment Note Next Visit Plan Assess pt's response to last treatment. Progress as pt's condition tolerates with slow progression back to previous exercise level. If return pt at prior level: Increase ex tolerance with UBE strengthening with increase in resistance, PNF (double golf swing) strengthening to help address dressing needs, review HEP issued; ROM stretch for R shoulder IR. Progress R shoulder ER, AB and Biceps strengthening exercises; end with modalities (CP) for pain as needed.
--- NOTE | 2020-08-07 17:07 | PT-OP ANOTE ---
15:15 Per telephone conversation the pt reported she chose to cancel her appt today due to increased pain in her back/legs and now constipation. States due to her history of seizures and fainting she didn't want to risk coming into therapy. States she has been constipated and wonders if she should do an enema. Pt was instructed to contact her physician with questions regarding constipation. Recommended to pt a bowel massage (with description given) that she states she is familiar with and that she did it once today. Pt reports staying with her mom and would like to have the physician do the enema in their office for safety, but may get an over the counter one to do on self. Pt again urged to contact her primary care physician.
--- NOTE | 2020-08-15 16:10 | PT.OTN ---
Current Diagnoses Other specific arthropathies, not elsewhere classified, unspecified shoulder (08/15/20) Pain in right shoulder (08/15/20) Muscle weakness (generalized) (08/15/20) Other symptoms and signs involving the musculoskeletal system (08/15/20) Strain of muscle, fascia and tendon of other parts of biceps, unspecified arm, initial encounter (08/15/20) Physical Therapy Treatment Note PT-OP-A Visit Information Start: 05/22/20 08:18 Freq: Status: Active Protocol: Document 08/15/20 15:10 LRN (Rec: 08/15/20 16:07 LRN [id number]) Out-Patient Physical Therapy Visit Information Visit Information Visit Type Treatment Note Visit Start Time 15:10 Visit Stop Time 15:51 Total Visit Minutes 41 Visit Number 16 Evaluation Information Evaluation Date 05/22/20 Precautions Precautions PMH: Depression, Seizure Disorder, Minor Concussion, Anxiety Disorder, PTSD, Episodic mood disorder, Family conflict, Muscle strain of chest wall. PT-OP-B Current Condition Start: 05/22/20 08:18 Freq: Status: Active Protocol: Document 05/22/20 11:21 LRN (Rec: 05/22/20 12:32 LRN [id number]) Current Condition History of Current Condition Onset Date 03/10/20 Current Complaints R forearm pn, biceps, doesn't function, shdr to Biceps&ear to shldr tender History of Current Condition Was found unconscious on the floor (supine with arms in protective posture) and 3 days later had severe R shoulder pain that radiated down the upper R arm and into the armpit region. When lifting the R arm she would have scapular pain. Neck also is stiff. As she was improving she heard a lot of cracking in the back of the neck and R shoulder for a month (mid March to April), but no cracking now . Of the fall she recalls she had a rough time in her sleep and woke to use bathroom, choosing to move slowly out of bed in order to not leak. She carefully put the CPAP away, then she remembers the motion of putting her feet on the floor and hanging the CPAP unit, and nothing after that. States she has functional limitations (see below) such as reaching behind her back and putting her bra on. Sometimes when using L arm gets pain in intrascapular area on the R. Prior Treatments and Tests States X-ray showed arthritis. Waiting for Orthopedic appt to be made. Future Testing and Treatments Planned Orthopedic appt. Treatment Goals Patient/Caregiver Goals Goal is to return R shoulder back to function: 1) Putting bra on (hook front and twist around body), can't twist it around, and has difficulty putting R arm into bra strap. 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 3) Reaching with R arm. 4) Tightness in R arm with washing hair. 5) Hard time taking shirt on/ off. 6) Tension with wiping. Prior Functional Status Baseline Function- ADL's Independent Baseline Function- Mobility Independent Baseline Function- Recreation/Hobbies Did home exercise requiring reaching overhead. Baseline Function- Other Reaching up in cupboard (on step stool) without difficulty . Current Functional Impairments (Reported) Functional Limitations- ADL's Washing hair, putting shirt on , toileting, turning over in bed because normally pushes with R arm. Functional Limitations- Recreation/ Not able to exercise with arms Hobbies . Functional Limitations- Other Limited w/reaching overhead into cupboard. Personal Factors Other Personal Factors That May Effect New Dx of arthritis Therapy/Recovery PT-OP-C Subjective Start: 05/22/20 08:18 Freq: Status: Active Protocol: Document 08/15/20 15:10 LRN (Rec: 08/15/20 16:07 LRN [id number]) OP-PT Subjective Patient Comments Patient Comments States since last session she has gone to ER once and has been on pain meds. Now she has a little spot of pain in the mid back on the R side and slight soreness in the R shoulder (Supraspinatus region ) behind where she has been feeling it. Her neck has been crackly but not stuck. Has been trying to open caps on food tops and carrying purse alternating sides, PT-OP-E Functional Tests Start: 05/22/20 08:18 Freq: Status: Active Protocol: Document 07/25/20 15:03 LRN (Rec: 07/25/20 16:03 LRN [id number]) Functional Tests Marilouey's Scratch Test Action 2- Left T3 Action 2- Right T3 Action 3- Left T7 Action 3- Right T10 PT-OP-H Neuro Start: 05/22/20 08:18 Freq: Status: Active Protocol: Document 05/22/20 11:21 LRN (Rec: 05/22/20 12:32 LRN [id number]) Sensation Evaluation Gross Sensation Gross Sensation WNL Deep Tendon Reflex & Clonus Assessment Deep Tendon Reflex Bilateral Tricep Deep Tendon Reflex 0 Absent Bilateral Brachioradialis Deep Tendon Reflex 2+ Normal Bilateral Bicep Deep Tendon Reflex 2+ Normal PT-OP-J Posture/Palpation/Skin Start: 05/22/20 08:18 Freq: Status: Active Protocol: Document 05/22/20 11:21 LRN (Rec: 05/22/20 12:32 LRN [id number]) Posture Evaluation Comments Posture Comments In standing: Moderate Kyphosis and forward head posturing. Head is level on shoulders, normal arm positioning, slightly elevated R shoulder. Palpation Assessment Location Upper back Palpation Location R intrascapular region & R pectoralis Minor Palpation Details Decreased muscle tone. R shoulder Palpation Location R UT & R mid thoracic region, and R Deltoid Palpation Findings Muscle Guarding Palpation Details R UT & R mid thoracic region - increased muscle tone and muscle guarding, R rotation fo mid thoracic vertebrae. R Deltoid - atrophy PT-OP-K Range of Motion Start: 05/22/20 08:18 Freq: Status: Active Protocol: Document 08/15/20 15:10 LRN (Rec: 08/15/20 16:07 LRN [id number]) Shoulder Goniometric Range of Motion Shoulder Right Passive Testing Position Supine Flexion 165 Abduction 180 External Rotation at 90 degrees 90 Abduction Internal Rotation 73 Left Passive Testing Position Supine Flexion 165 Abduction 175 External Rotation at 90 degrees 90 Abduction Internal Rotation 73 Left Active Testing Position Sitting Flexion 160 Extension 35 Abduction 175 Internal Rotation Behind Back (text) T8 Right Active Testing Position Sitting Flexion 155 Extension 35 Abduction 175 Internal Rotation Behind Back (text) T10 Comments End-range has stretching feeling. PT-OP-L Special Tests Start: 05/22/20 08:18 Freq: Status: Active Protocol: Document 05/22/20 11:21 LRN (Rec: 05/22/20 12:32 LRN [id number]) Special Tests Cervical Spine Special Tests Foraminal Compression Test Results Negative bilaterally Vertebral Artery Test Results Negative Bilaterally Shoulder Special Tests Biceps Load II Test Test Results R Negative Elevation Impingement Test Results R shoulder Positive Comments Pain with forced flexion IR/Horizontal ADD Impingement Test Results R shoulder Positive Comments Pain at shoulder PT-OP-M Strength Start: 05/22/20 08:18 Freq: Status: Active Protocol: Document 07/25/20 15:03 LRN (Rec: 07/25/20 16:03 LRN [id number]) Shoulder Strength Shoulder Manual Muscle Testing Right Flexion 5 Normal Abduction (C5) 5 Normal External Rotation 4+ Good+ Internal Rotation 5 Normal Left Comments Generally 5/5. PT-OP-Q Treatments Start: 05/22/20 08:18 Freq: Status: Active Protocol: Document 08/15/20 15:10 LRN (Rec: 08/15/20 16:07 LRN [id number]) Therapeutic Exercises Supine Exercises Shoulder flex Supine Exercise Name Shoulder flex stretch Side bilateral Reps/Minutes 4' Shoulder AB Supine Exercise Name Shoulder AB stretch Side bilateral Comments ROM taken Windshield Wipe Supine Exercise Name Active shoulder ER/IR Side right Reps/Minutes 15x Comments Pt moves slowly & carefully Shoulder IR Supine Exercise Name Shoulder IR stretch Side bilateral Comments ROM taken Shoulder ER Supine Exercise Name Shoulder ER stretch Side bilateral Comments ROM taken Sitting Exercises TA tightening Sitting Exercise Name TA tightening Reps/Minutes 10 hold, 6x Biceps Curl Sitting Exercise Name Biceps Side bilateral Resistance 1#, 2# Reps/Minutes 10x each Shoulder IR stretch Sitting Exercise Name Chin tucked, moving hands up back Side bilateral Reps/Minutes 2' Comments moves slowly Manual Therapy Treatment Soft Tissue Mobilization Paraspinals Body Location Thoracic Paraspinals. Mobilization Type Strumming Intensity/Depth Superficial to moderate Body Position Prone PT-OP-R Modalities Start: 05/22/20 08:18 Freq: Status: Active Protocol: Document 08/04/20 15:01 LRN (Rec: 08/04/20 15:33 LRN [id number]) Hot Pack/Cold Pack Treatment Cold Pack Location R upper back Treatment Duration (minutes) 10 Comments Pt in hooklie with back elevated 2 pillows under head. Ultrasound Therapy Treatment R Rhomboids Treatment Duration (minutes) 8 Patient Position Sidelying Coupling Medium Ultrasound Gel Applicator Size (cm2) 10 Mode Setting Pulsed Duty Cycle 50% Intensity Setting (w/cm2) 1.5 Comments 1.5 5' > 1.7 2' > 1.5 3' PT-OP-T Assessment and Plan Start: 05/22/20 08:18 Freq: Status: Active Protocol: Document 08/15/20 15:10 LRN (Rec: 08/15/20 16:07 LRN [id number]) Physical Therapy Assessment Goals Three Impairment Decreased R shoulder strength (ER 4/5, IR 3-/5). 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 (07/21/20: Pulling in R shoulder when lifting and leaning, or pulling out, into pretend oven 3# ) STG Duration 06/20/20 (07/21/20: Improved, 90% better) Risk Developer Goal (LTG) Pt will be able to put her bra on by hooking in the front and twisting it around to the back and she will be able to put her R arm into bra strap without pain. (07/21/20: Able to twist it around to the back with twinges of pain; ~90% better. She can sometimes put her arm in the bra strap without twinges of pain) LTG Duration 07/21/20 (07/21/20: Improved, 90% better) Two Impairment Decreased R shoulder mobility Short Term Goal (STG) Pt will be able to reach up in cupboard (on step stool) without difficulty. (07/21/20: Able to perform a couple times, getting twinges of pain when stretching to reach). STG Duration 06/20/20 (07/25/20: MET GOAL) Risk Developer Goal (LTG) Pt will be able to take her shirt on/off without difficulty. (07/21/20: Must modify the way she does it to avoid pain) LTG Duration 07/21/20 (07/25/20: Improving) One Impairment Lacks appropriate self care HEP. Risk Developer Goal (LTG) Pt will be independent with a self care HEP to manage her R shoulder pain. LTG Duration 07/21/20 (08/01/20: Progressing HEP) Progress Towards Goals Progress Comments Pt returns after flare up of back pain from use of R UE on her recliner chair. Pt is not quite to her prior level before the flare up. Assessment Summary Assessment Pt has returned almost at her prior functional level since her last treatment. She appears to be R rotated T5 through T10. She has tightness and pinching discomfort intermittently in the R back at T6 & T10 level. She has discomfort but not pain at right paraspinals of ~T5-T10 with tightness and swelling present. She was able to do the shoulder ROM and elbow strengthening without pain. No discomfort with shoulder ER/IR active ex. Good tolerance to low level activity. Pt choosing to use ice at home today. Physical Therapy Plan Frequency and Duration Frequency of Treatment 2x/Week Plan of Care Start Date 07/21/20 Plan of Care End Date 09/22/20 Next Visit Focus/Plan Next Note Type Treatment Note Next Visit Plan Assess pt's response to start of low level exercise. Progress as pt's condition tolerates with slow progression back to previous exercise level. If return pt at prior level: Slowly increase ex tolerance with UBE strengthening with increase in resistance, PNF ( double golf swing) strengthening to help address dressing needs, review HEP issued; ROM stretch for R shoulder IR. Progress R shoulder ER, AB and Biceps strengthening exercises; end with modalities (CP) for pain as needed.
--- NOTE | 2020-08-18 15:10 | PT.OTN ---
Current Diagnoses Other specific arthropathies, not elsewhere classified, unspecified shoulder (08/18/20) Pain in right shoulder (08/18/20) Muscle weakness (generalized) (08/18/20) Other symptoms and signs involving the musculoskeletal system (08/18/20) Strain of muscle, fascia and tendon of other parts of biceps, unspecified arm, initial encounter (08/18/20) Physical Therapy Treatment Note PT-OP-A Visit Information Start: 05/22/20 08:18 Freq: Status: Active Protocol: Document 08/18/20 14:36 MA (Rec: 08/18/20 15:16 MA [id number]) Out-Patient Physical Therapy Visit Information Visit Information Visit Type Treatment Note Visit Start Time 14:30 Visit Stop Time 15:10 Total Visit Minutes 40 Visit Number 17 Number of WHEEL TUNER Visits 1 PT-OP-B Current Condition Start: 05/22/20 08:18 Freq: Status: Active Protocol: Document 05/22/20 11:21 LRN (Rec: 05/22/20 12:32 LRN [id number]) Current Condition History of Current Condition Onset Date 03/10/20 Current Complaints R forearm pn, biceps, doesn't function, shdr to Biceps&ear to shldr tender History of Current Condition Was found unconscious on the floor (supine with arms in protective posture) and 3 days later had severe R shoulder pain that radiated down the upper R arm and into the armpit region. When lifting the R arm she would have scapular pain. Neck also is stiff. As she was improving she heard a lot of cracking in the back of the neck and R shoulder for a month (mid March to April), but no cracking now . Of the fall she recalls she had a rough time in her sleep and woke to use bathroom, choosing to move slowly out of bed in order to not leak. She carefully put the CPAP away, then she remembers the motion of putting her feet on the floor and hanging the CPAP unit, and nothing after that. States she has functional limitations (see below) such as reaching behind her back and putting her bra on. Sometimes when using L arm gets pain in intrascapular area on the R. Prior Treatments and Tests States X-ray showed arthritis. Waiting for Orthopedic appt to be made. Future Testing and Treatments Planned Orthopedic appt. Treatment Goals Patient/Caregiver Goals Goal is to return R shoulder back to function: 1) Putting bra on (hook front and twist around body), can't twist it around, and has difficulty putting R arm into bra strap. 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 3) Reaching with R arm. 4) Tightness in R arm with washing hair. 5) Hard time taking shirt on/ off. 6) Tension with wiping. Prior Functional Status Baseline Function- ADL's Independent Baseline Function- Mobility Independent Baseline Function- Recreation/Hobbies Did home exercise requiring reaching overhead. Baseline Function- Other Reaching up in cupboard (on step stool) without difficulty . Current Functional Impairments (Reported) Functional Limitations- ADL's Washing hair, putting shirt on , toileting, turning over in bed because normally pushes with R arm. Functional Limitations- Recreation/ Not able to exercise with arms Hobbies . Functional Limitations- Other Limited w/reaching overhead into cupboard. Personal Factors Other Personal Factors That May Effect New Dx of arthritis Therapy/Recovery PT-OP-C Subjective Start: 05/22/20 08:18 Freq: Status: Active Protocol: Document 08/18/20 14:36 MA (Rec: 08/18/20 15:16 MA [id number]) OP-PT Subjective Patient Comments Patient Comments Pt had an increase in pain after trying to pull lever for chair footrest this week. Called who thought she just tweaked it. Says it has been feeling better since yesterday. PT-OP-E Functional Tests Start: 05/22/20 08:18 Freq: Status: Active Protocol: Document 07/25/20 15:03 LRN (Rec: 07/25/20 16:03 LRN [id number]) Functional Tests Apley's Scratch Test Action 2- Left T3 Action 2- Right T3 Action 3- Left T7 Action 3- Right T10 PT-OP-H Neuro Start: 05/22/20 08:18 Freq: Status: Active Protocol: Document 05/22/20 11:21 LRN (Rec: 05/22/20 12:32 LRN [id number]) Sensation Evaluation Gross Sensation Gross Sensation WNL Deep Tendon Reflex & Clonus Assessment Deep Tendon Reflex Bilateral Tricep Deep Tendon Reflex 0 Absent Bilateral Brachioradialis Deep Tendon Reflex 2+ Normal Bilateral Bicep Deep Tendon Reflex 2+ Normal PT-OP-J Posture/Palpation/Skin Start: 05/22/20 08:18 Freq: Status: Active Protocol: Document 05/22/20 11:21 LRN (Rec: 05/22/20 12:32 LRN [id number]) Posture Evaluation Comments Posture Comments In standing: Moderate Kyphosis and forward head posturing. Head is level on shoulders, normal arm positioning, slightly elevated R shoulder. Palpation Assessment Location Upper back Palpation Location R intrascapular region & R pectoralis Minor Palpation Details Decreased muscle tone. R shoulder Palpation Location R UT & R mid thoracic region, and R Deltoid Palpation Findings Muscle Guarding Palpation Details R UT & R mid thoracic region - increased muscle tone and muscle guarding, R rotation fo mid thoracic vertebrae. R Deltoid - atrophy PT-OP-K Range of Motion Start: 05/22/20 08:18 Freq: Status: Active Protocol: Document 08/15/20 15:10 LRN (Rec: 08/15/20 16:07 LRN [id number]) Shoulder Goniometric Range of Motion Shoulder Right Passive Testing Position Supine Flexion 165 Abduction 180 External Rotation at 90 degrees 90 Abduction Internal Rotation 73 Left Passive Testing Position Supine Flexion 165 Abduction 175 External Rotation at 90 degrees 90 Abduction Internal Rotation 73 Left Active Testing Position Sitting Flexion 160 Extension 35 Abduction 175 Internal Rotation Behind Back (text) T8 Right Active Testing Position Sitting Flexion 155 Extension 35 Abduction 175 Internal Rotation Behind Back (text) T10 Comments End-range has stretching feeling. PT-OP-L Special Tests Start: 05/22/20 08:18 Freq: Status: Active Protocol: Document 05/22/20 11:21 LRN (Rec: 05/22/20 12:32 LRN [id number]) Special Tests Cervical Spine Special Tests Foraminal Compression Test Results Negative bilaterally Vertebral Artery Test Results Negative Bilaterally Shoulder Special Tests Biceps Load II Test Test Results R Negative Elevation Impingement Test Results R shoulder Positive Comments Pain with forced flexion IR/Horizontal ADD Impingement Test Results R shoulder Positive Comments Pain at shoulder PT-OP-M Strength Start: 05/22/20 08:18 Freq: Status: Active Protocol: Document 07/25/20 15:03 LRN (Rec: 07/25/20 16:03 LRN [id number]) Shoulder Strength Shoulder Manual Muscle Testing Right Flexion 5 Normal Abduction (C5) 5 Normal External Rotation 4+ Good+ Internal Rotation 5 Normal Left Comments Generally 5/5. PT-OP-Q Treatments Start: 05/22/20 08:18 Freq: Status: Active Protocol: Document 08/18/20 14:36 MA (Rec: 08/18/20 15:16 MA [id number]) Therapeutic Exercises Supine Exercises Shoulder flex Supine Exercise Name Shoulder flex stretch Side bilateral Reps/Minutes 6 Shoulder AB Supine Exercise Name Shoulder AB stretch Side bilateral Comments ROM taken Windshield Wipe Supine Exercise Name Active shoulder ER/IR Side right Reps/Minutes 15x Comments Pt moves slowly & carefully Shoulder IR Supine Exercise Name Shoulder IR stretch Side bilateral Comments ROM taken Shoulder ER Supine Exercise Name Shoulder ER stretch Side bilateral Comments ROM taken Prone Exercises AROM shd retract w/flex Side right Reps/Minutes 1x8 reps Sitting Exercises TA tightening Sitting Exercise Name TA tightening Reps/Minutes 10 hold, 6x Biceps Curl Sitting Exercise Name Biceps Side bilateral Resistance 1#, #2 Reps/Minutes 10x each Standing Exercises Chin tuck/scap squeeze Standing Exercise Name Hands behind back, chin tuck holding with scap squeezes. PNF Golf swing Standing Exercise Name ax Chop Reps/Minutes 1x10 Railing push ups Standing Exercise Name mini Push ups Reps/Minutes 2x7 Comments decresaed ROM Scap retract/uprot Standing Exercise Name Scap Retraction (row) Equipment Used TB#1 Reps/Minutes 2x10 Other Exercises Jacquelyn Pose Reps/Minutes 30 sec Comments shd flexed 4 pt shoulder flex Side right Reps/Minutes 1x10 Self-Care/Home Management Treatment Education Other Education educated pt on adjusting rearview mirror in order to improve posture PT-OP-R Modalities Start: 05/22/20 08:18 Freq: Status: Active Protocol: Document 08/04/20 15:01 LRN (Rec: 08/04/20 15:33 LRN [id number]) Hot Pack/Cold Pack Treatment Cold Pack Location R upper back Treatment Duration (minutes) 10 Comments Pt in hooklie with back elevated 2 pillows under head. Ultrasound Therapy Treatment R Rhomboids Treatment Duration (minutes) 8 Patient Position Sidelying Coupling Medium Ultrasound Gel Applicator Size (cm2) 10 Mode Setting Pulsed Duty Cycle 50% Intensity Setting (w/cm2) 1.5 Comments 1.5 5' > 1.7 2' > 1.5 3' PT-OP-T Assessment and Plan Start: 05/22/20 08:18 Freq: Status: Active Protocol: Document 08/18/20 14:36 MA (Rec: 08/18/20 15:16 MA [id number]) Physical Therapy Assessment Goals Three Impairment Decreased R shoulder strength (ER 4/5, IR 3-/5). Short Term Goal (STG) Pt will be able to scrap picker food out of oven (3#) without R shoulder pain onset. (07/21/20: Pulling in R shoulder when lifting and leaning, or pulling out, into pretend oven 3# ) STG Duration 06/20/20 (07/21/20: Improved, 90% better) [facility] Goal (LTG) Pt will be able to put her bra on by hooking in the front and twisting it around to the back and she will be able to put her R arm into bra strap without pain. (07/21/20: Able to twist it around to the back with twinges of pain; ~90% better. She can sometimes put her arm in the bra strap without twinges of pain) LTG Duration 07/21/20 (07/21/20: Improved, 90% better) Two Impairment Decreased R shoulder mobility Short Term Goal (STG) Pt will be able to reach up in cupboard (on step stool) without difficulty. (07/21/20: Able to perform a couple times, getting twinges of pain when stretching to reach). STG Duration 06/20/20 (07/25/20: MET GOAL) Chlorine Operator Goal (LTG) Pt will be able to take her shirt on/off without difficulty. (07/21/20: Must modify the way she does it to avoid pain) LTG Duration 07/21/20 (07/25/20: Improving) One Impairment Lacks appropriate self care HEP. Chlorine Operator Goal (LTG) Pt will be independent with a self care HEP to manage her R shoulder pain. LTG Duration 07/21/20 (08/01/20: Progressing HEP) Assessment Summary Assessment Minor pain around bicep tendon insertion during shd flexion stretch and during bicep curl has burning pain between R shd blade and spine around rhomboid region. Pain went away with short rest break and did not continue during next set. Pt needed cues to contract abs during rows with TB to avoid anterior pelvic tilt. At end of session pt said she felt back to her prior level of function and would be ready to progress more next week. Physical Therapy Plan Frequency and Duration Frequency of Treatment 2x/Week Plan of Care Start Date 07/21/20 Plan of Care End Date 09/22/20 Next Visit Focus/Plan Next Note Type Treatment Note Next Visit Plan Slowly increase ex tolerance with UBE strengthening with increase in resistance, PNF ( double golf swing) strengthening to help address dressing needs. Progress R shoulder ER, AB and Biceps strengthening exercises; end with modalities (CP) for pain as needed.
--- NOTE | 2020-08-22 16:19 | PT.OTN ---
Current Diagnoses Other specific arthropathies, not elsewhere classified, unspecified shoulder (08/22/20) Pain in right shoulder (08/22/20) Muscle weakness (generalized) (08/22/20) Other symptoms and signs involving the musculoskeletal system (08/22/20) Strain of muscle, fascia and tendon of other parts of biceps, unspecified arm, initial encounter (08/22/20) Physical Therapy Treatment Note PT-OP-A Visit Information Start: 05/22/20 08:18 Freq: Status: Active Protocol: Document 08/22/20 15:08 LRN (Rec: 08/22/20 16:05 LRN [id number]) Out-Patient Physical Therapy Visit Information Visit Information Visit Type Treatment Note Visit Note 7 after PN Visit Start Time 15:08 Visit Stop Time 15:48 Total Visit Minutes 40 Visit Number 18 Evaluation Information Evaluation Date 05/22/20 Precautions Precautions PMH: Depression, Seizure Disorder, Minor Concussion, Anxiety Disorder, PTSD, Episodic mood disorder, Family conflict, Muscle strain of chest wall. PT-OP-B Current Condition Start: 05/22/20 08:18 Freq: Status: Active Protocol: Document 05/22/20 11:21 LRN (Rec: 05/22/20 12:32 LRN [id number]) Current Condition History of Current Condition Onset Date 03/10/20 Current Complaints R forearm pn, biceps, doesn't function, shdr to Biceps&ear to shldr tender History of Current Condition Was found unconscious on the floor (supine with arms in protective posture) and 3 days later had severe R shoulder pain that radiated down the upper R arm and into the armpit region. When lifting the R arm she would have scapular pain. Neck also is stiff. As she was improving she heard a lot of cracking in the back of the neck and R shoulder for a month (mid March to April), but no cracking now . Of the fall she recalls she had a rough time in her sleep and woke to use bathroom, choosing to move slowly out of bed in order to not leak. She carefully put the CPAP away, then she remembers the motion of putting her feet on the floor and hanging the CPAP unit, and nothing after that. States she has functional limitations (see below) such as reaching behind her back and putting her bra on. Sometimes when using L arm gets pain in intrascapular area on the R. Prior Treatments and Tests States X-ray showed arthritis. Waiting for Orthopedic appt to be made. Future Testing and Treatments Planned Orthopedic appt. Treatment Goals Patient/Caregiver Goals Goal is to return R shoulder back to function: 1) Putting bra on (hook front and twist around body), can't twist it around, and has difficulty putting R arm into bra strap. 2) support worker food out of oven (3 #). 3) Reaching with R arm. 4) Tightness in R arm with washing hair. 5) Hard time taking shirt on/ off. 6) Tension with wiping. Prior Functional Status Baseline Function- ADL's Independent Baseline Function- Mobility Independent Baseline Function- Recreation/Hobbies Did home exercise requiring reaching overhead. Baseline Function- Other Reaching up in cupboard (on step stool) without difficulty . Current Functional Impairments (Reported) Functional Limitations- ADL's Washing hair, putting shirt on , toileting, turning over in bed because normally pushes with R arm. Functional Limitations- Recreation/ Not able to exercise with arms Hobbies . Functional Limitations- Other Limited w/reaching overhead into cupboard. Personal Factors Other Personal Factors That May Effect New Dx of arthritis Therapy/Recovery PT-OP-C Subjective Start: 05/22/20 08:18 Freq: Status: Active Protocol: Document 08/22/20 15:08 LRN (Rec: 08/22/20 16:05 LRN [id number]) OP-PT Subjective Patient Comments Patient Comments States she is feeling better but is feeling tired. Has been cooking, reaching in/out of cupboard and reaching for dishes. Trying to use L UE as well as R. Slight more pulling on right side when adjusting bra. States she was moving pans around (~3#) without difficulty; therefore feels moving a casserole in/ out of oven wouldn't be a problem. PT-OP-E Functional Tests Start: 05/22/20 08:18 Freq: Status: Active Protocol: Document 07/25/20 15:03 LRN (Rec: 07/25/20 16:03 LRN [id number]) Functional Tests Marilouey's Scratch Test Action 2- Left T3 Action 2- Right T3 Action 3- Left T7 Action 3- Right T10 PT-OP-H Neuro Start: 05/22/20 08:18 Freq: Status: Active Protocol: Document 05/22/20 11:21 LRN (Rec: 05/22/20 12:32 LRN [id number]) Sensation Evaluation Gross Sensation Gross Sensation WNL Deep Tendon Reflex & Clonus Assessment Deep Tendon Reflex Bilateral Tricep Deep Tendon Reflex 0 Absent Bilateral Brachioradialis Deep Tendon Reflex 2+ Normal Bilateral Bicep Deep Tendon Reflex 2+ Normal PT-OP-J Posture/Palpation/Skin Start: 05/22/20 08:18 Freq: Status: Active Protocol: Document 05/22/20 11:21 LRN (Rec: 05/22/20 12:32 LRN [id number]) Posture Evaluation Comments Posture Comments In standing: Moderate Kyphosis and forward head posturing. Head is level on shoulders, normal arm positioning, slightly elevated R shoulder. Palpation Assessment Location Upper back Palpation Location R intrascapular region & R pectoralis Minor Palpation Details Decreased muscle tone. R shoulder Palpation Location R UT & R mid thoracic region, and R Deltoid Palpation Findings Muscle Guarding Palpation Details R UT & R mid thoracic region - increased muscle tone and muscle guarding, R rotation fo mid thoracic vertebrae. R Deltoid - atrophy PT-OP-K Range of Motion Start: 05/22/20 08:18 Freq: Status: Active Protocol: Document 08/22/20 15:08 LRN (Rec: 08/22/20 16:05 LRN [id number]) Shoulder Goniometric Range of Motion Shoulder Left Active Testing Position Sitting Flexion 165 Extension 35 Abduction 170 Internal Rotation Behind Back (text) T8 Right Active Testing Position Sitting Flexion 160 Extension 5 Abduction 168 Internal Rotation Behind Back (text) T10 PT-OP-L Special Tests Start: 05/22/20 08:18 Freq: Status: Active Protocol: Document 05/22/20 11:21 LRN (Rec: 05/22/20 12:32 LRN [id number]) Special Tests Cervical Spine Special Tests Foraminal Compression Test Results Negative bilaterally Vertebral Artery Test Results Negative Bilaterally Shoulder Special Tests Biceps Load II Test Test Results R Negative Elevation Impingement Test Results R shoulder Positive Comments Pain with forced flexion IR/Horizontal ADD Impingement Test Results R shoulder Positive Comments Pain at shoulder PT-OP-M Strength Start: 05/22/20 08:18 Freq: Status: Active Protocol: Document 07/25/20 15:03 LRN (Rec: 07/25/20 16:03 LRN [id number]) Shoulder Strength Shoulder Manual Muscle Testing Right Flexion 5 Normal Abduction (C5) 5 Normal External Rotation 4+ Good+ Internal Rotation 5 Normal Left Comments Generally 5/5. PT-OP-Q Treatments Start: 05/22/20 08:18 Freq: Status: Active Protocol: Document 08/22/20 15:08 LRN (Rec: 08/22/20 16:05 LRN [id number]) Cardio Equipment Upper Body Ergometer (UBE) Duration (Minutes) 8 RPM 90 Height Head height 3 Therapeutic Exercises Sitting Exercises Shoulder IR stretch Sitting Exercise Name Shoulder IR stretch Side bilateral Standing Exercises Chin tuck/scap squeeze Standing Exercise Name Hands behind back, chin tuck holding with scap squeezes. Reps/Minutes 10x Comments Pt needed sitting rest prior to ex; therefore ex was done in sitting. PNF Golf swing Standing Exercise Name Double Golf Swing Reps/Minutes 10x IR stretching Standing Exercise Name Wood Chop Side bilateral Equipment Used Lev 2 Reps/Minutes 10x Other Exercises Overhead Serge Other Exercise Name Shoulder Flex ROM (alternating ROM) Side bilateral Reps/Minutes 3' PT-OP-R Modalities Start: 05/22/20 08:18 Freq: Status: Active Protocol: Document 08/04/20 15:01 LRN (Rec: 08/04/20 15:33 N [id number]) Hot Pack/Cold Pack Treatment Cold Pack Location R upper back Treatment Duration (minutes) 10 Comments [facility] 2 pillows under head. Ultrasound Therapy Treatment R Rhomboids Treatment Duration (minutes) 8 Patient Position Sidelying Coupling Medium Ultrasound Gel Applicator Size (cm2) 10 Mode Setting Pulsed Duty Cycle 50% Intensity Setting (w/cm2) 1.5 Comments 1.5 5' > 1.7 2' > 1.5 3' PT-OP-T Assessment and Plan Start: 05/22/20 08:18 Freq: Status: Active Protocol: Document 08/22/20 15:08 LRN (Rec: 08/22/20 16:05 [facility] [id number]) Physical Therapy Assessment Goals Three Impairment Decreased R shoulder strength (ER 4/5, IR 3-/5). Short Term Goal (STG) Pt will be able to fruit or nut picker food out of oven (3#) without R shoulder pain onset. (07/21/20: Pulling in R shoulder when lifting and leaning, or pulling out, into pretend oven 3# ) STG Duration 06/20/20 (08/22/20: MET GOAL) Import Export Manager Goal (LTG) Pt will be able to put her bra on by hooking in the front and twisting it around to the back and she will be able to put her R arm into bra strap without pain. (08/22/20: Able to twist it around to the back with twinges of pain; ~98% better. She can sometimes put her arm in the bra strap without twinges of pain) LTG Duration 07/21/20 (08/22/20: Improved, 98% better) Two Impairment Decreased R shoulder mobility Short Term Goal (STG) Pt will be able to reach up in cupboard (on step stool) without difficulty. (07/21/20: Able to perform a couple times, getting twinges of pain when stretching to reach). STG Duration 06/20/20 (07/25/20: MET GOAL) Import Export Manager Goal (LTG) Pt will be able to take her shirt on/off without difficulty. (08/22/20: 99% better depending on the shirt) LTG Duration 07/21/20 (08/22/20: Improving ) One Impairment Lacks appropriate self care HEP. Import Export Manager Goal (LTG) Pt will be independent with a self care HEP to manage her R shoulder pain. LTG Duration 07/21/20 (08/01/20: Progressing HEP) Progress Towards Goals Progress Comments Pt able to resume partially her prior exercise tolerance without onset of pain and ROM except for AB is back to prior level before flare up. STG #3 MET GOAL. LTG #3 Improved from 90% to 98 % perceived improvement. LTG #2 Improved to perceived 99% improvement. Assessment Summary Assessment Pt is moving slowly today; therefore limited with therapy to pt tolerance. No complaints of pain with restart of exercises. She did require a sit rest between exercises and moved slow with stretching. Pt has improved in function since her flare up and has improved with ability to lift a 3# casserole dish, taking her shirt on/off and donning/shifting her bra. Physical Therapy Plan Frequency and Duration Frequency of Treatment 2x/Week Plan of Care Start Date 07/21/20 Plan of Care End Date 09/22/20 Next Visit Focus/Plan Next Note Type Treatment Note Next Visit Plan Slowly increase ex tolerance with UBE strengthening to 10' with increase in resistance, PNF (double golf swing) strengthening to help address dressing needs. Add to HEP & resume R shoulder ER, AB and Biceps strengthening exercises ; end with modalities (CP) for pain as needed.
--- NOTE | 2020-08-28 16:45 | PT.OTN ---
Current Diagnoses Other specific arthropathies, not elsewhere classified, unspecified shoulder (08/28/20) Pain in right shoulder (08/28/20) Muscle weakness (generalized) (08/28/20) Other symptoms and signs involving the musculoskeletal system (08/28/20) Strain of muscle, fascia and tendon of other parts of biceps, unspecified arm, initial encounter (08/28/20) Physical Therapy Treatment Note PT-OP-A Visit Information Start: 05/22/20 08:18 Freq: Status: Active Protocol: Document 08/28/20 10:38 LRN (Rec: 08/28/20 11:18 LRN [id number]) Out-Patient Physical Therapy Visit Information Visit Information Visit Type Treatment Note Visit Note 8 after PN Visit Start Time 10:38 Visit Stop Time 11:16 Total Visit Minutes 38 Visit Number 19 Evaluation Information Evaluation Date 05/22/20 Precautions Precautions PMH: Depression, Seizure Disorder, Minor Concussion, Anxiety Disorder, PTSD, Episodic mood disorder, Family conflict, Muscle strain of chest wall. PT-OP-B Current Condition Start: 05/22/20 08:18 Freq: Status: Active Protocol: Document 05/22/20 11:21 LRN (Rec: 05/22/20 12:32 LRN [id number]) Current Condition History of Current Condition Onset Date 03/10/20 Current Complaints R forearm pn, biceps, doesn't function, shdr to Biceps&ear to shldr tender History of Current Condition Was found unconscious on the floor (supine with arms in protective posture) and 3 days later had severe R shoulder pain that radiated down the upper R arm and into the armpit region. When lifting the R arm she would have scapular pain. Neck also is stiff. As she was improving she heard a lot of cracking in the back of the neck and R shoulder for a month (mid March to April), but no cracking now . Of the fall she recalls she had a rough time in her sleep and woke to use bathroom, choosing to move slowly out of bed in order to not leak. She carefully put the CPAP away, then she remembers the motion of putting her feet on the floor and hanging the CPAP unit, and nothing after that. States she has functional limitations (see below) such as reaching behind her back and putting her bra on. Sometimes when using L arm gets pain in intrascapular area on the R. Prior Treatments and Tests States X-ray showed arthritis. Waiting for Orthopedic appt to be made. Future Testing and Treatments Planned Orthopedic appt. Treatment Goals Patient/Caregiver Goals Goal is to return R shoulder back to function: 1) Putting bra on (hook front and twist around body), can't twist it around, and has difficulty putting R arm into bra strap. 2) rn occupational health food out of oven (3 #). 3) Reaching with R arm. 4) Tightness in R arm with washing hair. 5) Hard time taking shirt on/ off. 6) Tension with wiping. Prior Functional Status Baseline Function- ADL's Independent Baseline Function- Mobility Independent Baseline Function- Recreation/Hobbies Did home exercise requiring reaching overhead. Baseline Function- Other Reaching up in cupboard (on step stool) without difficulty . Current Functional Impairments (Reported) Functional Limitations- ADL's Washing hair, putting shirt on , toileting, turning over in bed because normally pushes with R arm. Functional Limitations- Recreation/ Not able to exercise with arms Hobbies . Functional Limitations- Other Limited w/reaching overhead into cupboard. Personal Factors Other Personal Factors That May Effect New Dx of arthritis Therapy/Recovery PT-OP-C Subjective Start: 05/22/20 08:18 Freq: Status: Active Protocol: Document 08/28/20 10:38 LRN (Rec: 08/28/20 11:18 LRN [id number]) OP-PT Subjective Patient Comments Patient Comments States she was putting her bra on and felt the tightening of her R shoulder, so she took it easy and used more of her L arm to twist bra around. Hopes to take it more easy today. Feels like I'm almost there PT-OP-E Functional Tests Start: 05/22/20 08:18 Freq: Status: Active Protocol: Document 07/25/20 15:03 LRN (Rec: 07/25/20 16:03 LRN [id number]) Functional Tests Marilouey's Scratch Test Action 2- Left T3 Action 2- Right T3 Action 3- Left T7 Action 3- Right T10 PT-OP-H Neuro Start: 05/22/20 08:18 Freq: Status: Active Protocol: Document 05/22/20 11:21 LRN (Rec: 05/22/20 12:32 LRN [id number]) Sensation Evaluation Gross Sensation Gross Sensation WNL Deep Tendon Reflex & Clonus Assessment Deep Tendon Reflex Bilateral Tricep Deep Tendon Reflex 0 Absent Bilateral Brachioradialis Deep Tendon Reflex 2+ Normal Bilateral Bicep Deep Tendon Reflex 2+ Normal PT-OP-J Posture/Palpation/Skin Start: 05/22/20 08:18 Freq: Status: Active Protocol: Document 05/22/20 11:21 LRN (Rec: 05/22/20 12:32 LRN [id number]) Posture Evaluation Comments Posture Comments In standing: Moderate Kyphosis and forward head posturing. Head is level on shoulders, normal arm positioning, slightly elevated R shoulder. Palpation Assessment Location Upper back Palpation Location R intrascapular region & R pectoralis Minor Palpation Details Decreased muscle tone. R shoulder Palpation Location R UT & R mid thoracic region, and R Deltoid Palpation Findings Muscle Guarding Palpation Details R UT & R mid thoracic region - increased muscle tone and muscle guarding, R rotation fo mid thoracic vertebrae. R Deltoid - atrophy PT-OP-K Range of Motion Start: 05/22/20 08:18 Freq: Status: Active Protocol: Document 08/22/20 15:08 LRN (Rec: 08/22/20 16:05 LRN [id number]) Shoulder Goniometric Range of Motion Shoulder Left Active Testing Position Sitting Flexion 165 Extension 35 Abduction 170 Internal Rotation Behind Back (text) T8 Right Active Testing Position Sitting Flexion 160 Extension 5 Abduction 168 Internal Rotation Behind Back (text) T10 PT-OP-L Special Tests Start: 05/22/20 08:18 Freq: Status: Active Protocol: Document 05/22/20 11:21 LRN (Rec: 05/22/20 12:32 LRN [id number]) Special Tests Cervical Spine Special Tests Foraminal Compression Test Results Negative bilaterally Vertebral Artery Test Results Negative Bilaterally Shoulder Special Tests Biceps Load II Test Test Results R Negative Elevation Impingement Test Results R shoulder Positive Comments Pain with forced flexion IR/Horizontal ADD Impingement Test Results R shoulder Positive Comments Pain at shoulder PT-OP-M Strength Start: 05/22/20 08:18 Freq: Status: Active Protocol: Document 07/25/20 15:03 LRN (Rec: 07/25/20 16:03 LRN [id number]) Shoulder Strength Shoulder Manual Muscle Testing Right Flexion 5 Normal Abduction (C5) 5 Normal External Rotation 4+ Good+ Internal Rotation 5 Normal Left Comments Generally 5/5. PT-OP-Q Treatments Start: 05/22/20 08:18 Freq: Status: Active Protocol: Document 08/28/20 10:38 LRN (Rec: 08/28/20 11:18 LRN [id number]) Cardio Equipment Upper Body Ergometer (UBE) Duration (Minutes) 9 RPM 90 Seat Position 13 Height Head height 3 Therapeutic Exercises Sitting Exercises Biceps Curl Sitting Exercise Name Biceps Side bilateral Resistance 2# Reps/Minutes 10x 2 Standing Exercises Chin tuck/scap squeeze Standing Exercise Name Hands behind back, chin tuck holding with scap squeezes. Reps/Minutes 15x PNF Golf swing Standing Exercise Name Double Golf Swing Side bilateral Equipment Used Lev 2 TB Reps/Minutes 10x 2 Comments Started with resistance, ended with no resistance due to poor jessica w/ex. PNF Standing Exercise Name Wood Chop Side bilateral Resistance Lev 2 Reps/Minutes 15x each Horiz AB/AD Standing Exercise Name Rotating bra motion (L to R direction) Resistance Lev 1 Reps/Minutes 10x 2 Other Exercises Overhead Serge Other Exercise Name Shoulder Flex ROM (alternating ROM) & stretching Side bilateral Reps/Minutes 6' Self-Care/Home Management Treatment Education Patient Education Home Exercise Program Activities Self-Care/Home Management Activities Issued & reviewed HEP: Biceps Curl. Extra time to discuss reps and rest with exercise. PT-OP-R Modalities Start: 05/22/20 08:18 Freq: Status: Active Protocol: Document 08/04/20 15:01 LRN (Rec: 08/04/20 15:33 LRN [id number]) Hot Pack/Cold Pack Treatment Cold Pack Location R upper back Treatment Duration (minutes) 10 Comments Pt in [place] with back elevated 2 pillows under head. Ultrasound Therapy Treatment R Rhomboids Treatment Duration (minutes) 8 Patient Position Sidelying Coupling Medium Ultrasound Gel Applicator Size (cm2) 10 Mode Setting Pulsed Duty Cycle 50% Intensity Setting (w/cm2) 1.5 Comments 1.5 5' > 1.7 2' > 1.5 3' PT-OP-T Assessment and Plan Start: 05/22/20 08:18 Freq: Status: Active Protocol: Document 08/28/20 10:38 LRN (Rec: 08/28/20 11:18 LRN [id number]) Physical Therapy Assessment Goals Three Impairment Decreased R shoulder strength (ER 4/5, IR 3-/5). Short Term Goal (STG) Pt will be able to citrus picker food out of oven (3#) without R shoulder pain onset. (07/21/20: Pulling in R shoulder when lifting and leaning, or pulling out, into pretend oven 3# ) STG Duration 06/20/20 (08/22/20: MET GOAL) Group Home Goal (LTG) Pt will be able to put her bra on by hooking in the front and twisting it around to the back and she will be able to put her R arm into bra strap without pain. (08/22/20: Able to twist it around to the back with twinges of pain; ~98% better. She can sometimes put her arm in the bra strap without twinges of pain) LTG Duration 07/21/20 (08/22/20: Improved, 98% better) Two Impairment Decreased R shoulder mobility Short Term Goal (STG) Pt will be able to reach up in cupboard (on step stool) without difficulty. (07/21/20: Able to perform a couple times, getting twinges of pain when stretching to reach). STG Duration 06/20/20 (07/25/20: MET GOAL) Electrical Test Engineer Goal (LTG) Pt will be able to take her shirt on/off without difficulty. (08/22/20: 99% better depending on the shirt) LTG Duration 07/21/20 (08/22/20: Improving ) One Impairment Lacks appropriate self care HEP. Group Home Goal (LTG) Pt will be independent with a self care HEP to manage her R shoulder pain. LTG Duration 07/21/20 (08/01/20: Progressing HEP) Assessment Summary Assessment Pt tolerance to exercise is fair. She became shaky with PNF ex's and needed sit exercises. Pt was able to increase time on UBE at end. Physical Therapy Plan Frequency and Duration Frequency of Treatment 2x/Week Plan of Care Start Date 07/21/20 Plan of Care End Date 09/22/20 Next Visit Focus/Plan Next Note Type Treatment Note Next Visit Plan Increase ex tolerance with UBE strengthening to 10' with increase in resistance as tolerated, PNF (double golf swing) strengthening (use wgt) to help address dressing needs. Add to HEP & resume R shoulder ER, AB strengthening exercises; end with modalities (CP) for pain as needed.
--- NOTE | 2020-09-04 16:05 | PT.OTN ---
Current Diagnoses Other specific arthropathies, not elsewhere classified, unspecified shoulder (09/04/20) Pain in right shoulder (09/04/20) Muscle weakness (generalized) (09/04/20) Other symptoms and signs involving the musculoskeletal system (09/04/20) Strain of muscle, fascia and tendon of other parts of biceps, unspecified arm, initial encounter (09/04/20) Physical Therapy Treatment Note PT-OP-A Visit Information Start: 05/22/20 08:18 Freq: Status: Active Protocol: Document 09/04/20 15:00 LRN (Rec: 09/04/20 16:04 LRN [id number]) Out-Patient Physical Therapy Visit Information Visit Information Visit Type Treatment Note Visit Note 9 after PN Visit Start Time 15:00 Visit Stop Time 15:45 Total Visit Minutes 45 Visit Number 20 Evaluation Information Evaluation Date 05/22/20 Precautions Precautions PMH: Depression, Seizure Disorder, Minor Concussion, Anxiety Disorder, PTSD, Episodic mood disorder, Family conflict, Muscle strain of chest wall. PT-OP-B Current Condition Start: 05/22/20 08:18 Freq: Status: Active Protocol: Document 05/22/20 11:21 LRN (Rec: 05/22/20 12:32 LRN [id number]) Current Condition History of Current Condition Onset Date 03/10/20 Current Complaints R forearm pn, biceps, doesn't function, shdr to Biceps&ear to shldr tender History of Current Condition Was found unconscious on the floor (supine with arms in protective posture) and 3 days later had severe R shoulder pain that radiated down the upper R arm and into the armpit region. When lifting the R arm she would have scapular pain. Neck also is stiff. As she was improving she heard a lot of cracking in the back of the neck and R shoulder for a month (mid March to April), but no cracking now . Of the fall she recalls she had a rough time in her sleep and woke to use bathroom, choosing to move slowly out of bed in order to not leak. She carefully put the CPAP away, then she remembers the motion of putting her feet on the floor and hanging the CPAP unit, and nothing after that. States she has functional limitations (see below) such as reaching behind her back and putting her bra on. Sometimes when using L arm gets pain in intrascapular area on the R. Prior Treatments and Tests States X-ray showed arthritis. Waiting for Orthopedic appt to be made. Future Testing and Treatments Planned Orthopedic appt. Treatment Goals Patient/Caregiver Goals Goal is to return R shoulder back to function: 1) Putting bra on (hook front and twist around body), can't twist it around, and has difficulty putting R arm into bra strap. 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 3) Reaching with R arm. 4) Tightness in R arm with washing hair. 5) Hard time taking shirt on/ off. 6) Tension with wiping. Prior Functional Status Baseline Function- ADL's Independent Baseline Function- Mobility Independent Baseline Function- Recreation/Hobbies Did home exercise requiring reaching overhead. Baseline Function- Other Reaching up in cupboard (on step stool) without difficulty . Current Functional Impairments (Reported) Functional Limitations- ADL's Washing hair, putting shirt on , toileting, turning over in bed because normally pushes with R arm. Functional Limitations- Recreation/ Not able to exercise with arms Hobbies . Functional Limitations- Other Limited w/reaching overhead into cupboard. Personal Factors Other Personal Factors That May Effect New Dx of arthritis Therapy/Recovery PT-OP-C Subjective Start: 05/22/20 08:18 Freq: Status: Active Protocol: Document 09/04/20 15:00 LRN (Rec: 09/04/20 16:04 LRN [id number]) OP-PT Subjective Patient Comments Patient Comments States for the past couple of days she has felt really good. PT-OP-E Functional Tests Start: 05/22/20 08:18 Freq: Status: Active Protocol: Document 07/25/20 15:03 LRN (Rec: 07/25/20 16:03 LRN [id number]) Functional Tests Apley's Scratch Test Action 2- Left T3 Action 2- Right T3 Action 3- Left T7 Action 3- Right T10 PT-OP-H Neuro Start: 05/22/20 08:18 Freq: Status: Active Protocol: Document 05/22/20 11:21 LRN (Rec: 05/22/20 12:32 LRN [id number]) Sensation Evaluation Gross Sensation Gross Sensation WNL Deep Tendon Reflex & Clonus Assessment Deep Tendon Reflex Bilateral Tricep Deep Tendon Reflex 0 Absent Bilateral Brachioradialis Deep Tendon Reflex 2+ Normal Bilateral Bicep Deep Tendon Reflex 2+ Normal PT-OP-J Posture/Palpation/Skin Start: 05/22/20 08:18 Freq: Status: Active Protocol: Document 05/22/20 11:21 LRN (Rec: 05/22/20 12:32 LRN [id number]) Posture Evaluation Comments Posture Comments In standing: Moderate Kyphosis and forward head posturing. Head is level on shoulders, normal arm positioning, slightly elevated R shoulder. Palpation Assessment Location Upper back Palpation Location R intrascapular region & R pectoralis Minor Palpation Details Decreased muscle tone. R shoulder Palpation Location R UT & R mid thoracic region, and R Deltoid Palpation Findings Muscle Guarding Palpation Details R UT & R mid thoracic region - increased muscle tone and muscle guarding, R rotation fo mid thoracic vertebrae. R Deltoid - atrophy PT-OP-K Range of Motion Start: 05/22/20 08:18 Freq: Status: Active Protocol: Document 08/22/20 15:08 LRN (Rec: 08/22/20 16:05 LRN [id number]) Shoulder Goniometric Range of Motion Shoulder Left Active Testing Position Sitting Flexion 165 Extension 35 Abduction 170 Internal Rotation Behind Back (text) T8 Right Active Testing Position Sitting Flexion 160 Extension 5 Abduction 168 Internal Rotation Behind Back (text) T10 PT-OP-L Special Tests Start: 05/22/20 08:18 Freq: Status: Active Protocol: Document 05/22/20 11:21 LRN (Rec: 05/22/20 12:32 LRN [id number]) Special Tests Cervical Spine Special Tests Foraminal Compression Test Results Negative bilaterally Vertebral Artery Test Results Negative Bilaterally Shoulder Special Tests Biceps Load II Test Test Results R Negative Elevation Impingement Test Results R shoulder Positive Comments Pain with forced flexion IR/Horizontal ADD Impingement Test Results R shoulder Positive Comments Pain at shoulder PT-OP-M Strength Start: 05/22/20 08:18 Freq: Status: Active Protocol: Document 07/25/20 15:03 LRN (Rec: 07/25/20 16:03 LRN [id number]) Shoulder Strength Shoulder Manual Muscle Testing Right Flexion 5 Normal Abduction (C5) 5 Normal External Rotation 4+ Good+ Internal Rotation 5 Normal Left Comments Generally 5/5. PT-OP-Q Treatments Start: 05/22/20 08:18 Freq: Status: Active Protocol: Document 09/04/20 15:00 LRN (Rec: 09/04/20 16:04 LRN [id number]) Cardio Equipment Upper Body Ergometer (UBE) Duration (Minutes) 10 RPM 90 Seat Position 13 Height Head height 3 Therapeutic Exercises Supine Exercises Biceps Curls Supine Exercise Name Bicep Curls Side bilateral Resistance 1# Reps/Minutes 10x Shoulder flex Supine Exercise Name Shoulder flex stretch Side bilateral Reps/Minutes 3 Pec Stretch Supine Exercise Name Pec stretch (Football goal post stretch) Side bilateral Reps/Minutes 2' Standing Exercises Scapular depression Standing Exercise Name Scap lift/depress Reps/Minutes 10x Chin tuck/scap squeeze Standing Exercise Name Hands behind back, chin tuck holding with scap squeezes. Reps/Minutes 15x PNF Golf swing Standing Exercise Name Double Golf Swing (lifting top off) Side bilateral Equipment Used 1#, 0# Reps/Minutes 8x each Comments Started with resistance, ended with no resistance due to poor jessica w/ex. Railing push ups Standing Exercise Name Shallow Railing Push Up Reps/Minutes 10x Jumping Aristeo Standing Exercise Name [place] shoulder AB Reps/Minutes 8x Comments [place] pulling at neck and shoulder blades tiring her out . PNF Standing Exercise Name Wood Chop Side bilateral Resistance Lev 2 Reps/Minutes 15x each Lifting (casserole mechanics) Standing Exercise Name Lifting casserole into oven movement Side bilateral Equipment Used crate, 1# Reps/Minutes 8x Comments Pt needed retraining on body mechanics. Horiz AB/AD Standing Exercise Name Rotating bra motion (L to R direction) Resistance Lev 2 Reps/Minutes 15x 2 Shoulder ER strengthening Standing Exercise Name ER Side bilateral Equipment Used Lev 2 TB Reps/Minutes 15x Shoulder IR strengthening Standing Exercise Name IR (R>L) Side bilateral Equipment Used Lev 2 Reps/Minutes 15x Self-Care/Home Management Treatment Education Patient Education Home Exercise Program Activities Self-Care/Home Management Activities Issued & reviewed HEP: Shoulder ER/IR. Reviewed with pt standing shoulder AB swings (Jumping jacks). PT-OP-R Modalities Start: 05/22/20 08:18 Freq: Status: Active Protocol: Document 08/04/20 15:01 LRN (Rec: 08/04/20 15:33 LRN [id number]) Hot Pack/Cold Pack Treatment Cold Pack Location R upper back Treatment Duration (minutes) 10 Comments Pt in hooklie with back elevated 2 pillows under head. Ultrasound Therapy Treatment R Rhomboids Treatment Duration (minutes) 8 Patient Position Sidelying Coupling Medium Ultrasound Gel Applicator Size (cm2) 10 Mode Setting Pulsed Duty Cycle 50% Intensity Setting (w/cm2) 1.5 Comments 1.5 5' > 1.7 2' > 1.5 3' PT-OP-T Assessment and Plan Start: 05/22/20 08:18 Freq: Status: Active Protocol: Document 09/04/20 15:00 LRN (Rec: 09/04/20 16:04 LRN [id number]) Physical Therapy Assessment Goals Three Impairment Decreased R shoulder strength (ER 4/5, IR 3-/5). 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 (07/21/20: Pulling in R shoulder when lifting and leaning, or pulling out, into pretend oven 3# ) STG Duration 06/20/20 (08/22/20: MET GOAL) Custodial Goal (LTG) Pt will be able to put her bra on by hooking in the front and twisting it around to the back and she will be able to put her R arm into bra strap without pain. (08/22/20: Able to twist it around to the back with twinges of pain; ~98% better. She can sometimes put her arm in the bra strap without twinges of pain) LTG Duration 07/21/20 (08/22/20: Improved, 98% better) Two Impairment Decreased R shoulder mobility Short Term Goal (STG) Pt will be able to reach up in cupboard (on step stool) without difficulty. (07/21/20: Able to perform a couple times, getting twinges of pain when stretching to reach). STG Duration 06/20/20 (07/25/20: MET GOAL) Decorating Instructor Goal (LTG) Pt will be able to take her shirt on/off without difficulty. (08/22/20: 99% better depending on the shirt) (09/04/20: Able to remove shirt with discomfort, no pain ) LTG Duration 07/21/20 (09/04/20: Improved) One Impairment Lacks appropriate self care HEP. Decorating Instructor Goal (LTG) Pt will be independent with a self care HEP to manage her R shoulder pain. LTG Duration 07/21/20 (09/04/20: Progressing HEP) Progress Towards Goals Progress Comments Progressing HEP. Pt able to take shirt off at home without pain, only discomfort (goal 2 improving). Pt having a twinge of pain with bra donning (goal 3 improving) Assessment Summary Assessment Shoulder IR was shaky at the end of IR strengthening, indicating weakness at max IR (across chest). Pt able to perform casserole lift but strength has decreased since her flare up and she needed retraining on her body mechanics. Physical Therapy Plan Frequency and Duration Frequency of Treatment 2x/Week Plan of Care Start Date 07/21/20 Plan of Care End Date 09/22/20 Next Visit Focus/Plan Next Note Type Treatment Note Next Visit Plan Pt is to work on her independent HEP and return for recheck with a possible DC to HEP; otherwise PN needed to extend POC date. Increase resistance on UBE strengthening, PNF (double golf swing) strengthening (use wgt) to help address dressing needs. Resume R shoulder ER, AB strengthening exercises; end with modalities (CP) for pain as needed.
--- NOTE | 2020-09-11 16:42 | PT.OTN ---
Current Diagnoses Other specific arthropathies, not elsewhere classified, unspecified shoulder (09/11/20) Pain in right shoulder (09/11/20) Muscle weakness (generalized) (09/11/20) Other symptoms and signs involving the musculoskeletal system (09/11/20) Strain of muscle, fascia and tendon of other parts of biceps, unspecified arm, initial encounter (09/11/20) Physical Therapy Treatment Note PT-OP-A Visit Information Start: 05/22/20 08:18 Freq: Status: Active Protocol: Document 09/11/20 13:30 LRN (Rec: 09/11/20 14:22 LRN [id number]) Out-Patient Physical Therapy Visit Information Visit Information Visit Type Treatment Note Visit Start Time 13:30 Visit Stop Time 14:18 Total Visit Minutes 48 Visit Number 21 Evaluation Information Evaluation Date 05/22/20 Precautions Precautions PMH: Depression, Seizure Disorder, Minor Concussion, Anxiety Disorder, PTSD, Episodic mood disorder, Family conflict, Muscle strain of chest wall. PT-OP-B Current Condition Start: 05/22/20 08:18 Freq: Status: Active Protocol: Document 05/22/20 11:21 LRN (Rec: 05/22/20 12:32 LRN [id number]) Current Condition History of Current Condition Onset Date 03/10/20 Current Complaints R forearm pn, biceps, doesn't function, shdr to Biceps&ear to shldr tender History of Current Condition Was found unconscious on the floor (supine with arms in protective posture) and 3 days later had severe R shoulder pain that radiated down the upper R arm and into the armpit region. When lifting the R arm she would have scapular pain. Neck also is stiff. As she was improving she heard a lot of cracking in the back of the neck and R shoulder for a month (mid March to April), but no cracking now . Of the fall she recalls she had a rough time in her sleep and woke to use bathroom, choosing to move slowly out of bed in order to not leak. She carefully put the CPAP away, then she remembers the motion of putting her feet on the floor and hanging the CPAP unit, and nothing after that. States she has functional limitations (see below) such as reaching behind her back and putting her bra on. Sometimes when using L arm gets pain in intrascapular area on the R. Prior Treatments and Tests States X-ray showed arthritis. Waiting for Orthopedic appt to be made. Future Testing and Treatments Planned Orthopedic appt. Treatment Goals Patient/Caregiver Goals Goal is to return R shoulder back to function: 1) Putting bra on (hook front and twist around body), can't twist it around, and has difficulty putting R arm into bra strap. 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 3) Reaching with R arm. 4) Tightness in R arm with washing hair. 5) Hard time taking shirt on/ off. 6) Tension with wiping. Prior Functional Status Baseline Function- ADL's Independent Baseline Function- Mobility Independent Baseline Function- Recreation/Hobbies Did home exercise requiring reaching overhead. Baseline Function- Other Reaching up in cupboard (on step stool) without difficulty . Current Functional Impairments (Reported) Functional Limitations- ADL's Washing hair, putting shirt on , toileting, turning over in bed because normally pushes with R arm. Functional Limitations- Recreation/ Not able to exercise with arms Hobbies . Functional Limitations- Other Limited w/reaching overhead into cupboard. Personal Factors Other Personal Factors That May Effect New Dx of arthritis Therapy/Recovery PT-OP-C Subjective Start: 05/22/20 08:18 Freq: Status: Active Protocol: Document 09/11/20 13:30 LRN (Rec: 09/11/20 14:22 LRN [id number]) OP-PT Subjective Patient Comments Patient Comments General soreness in R shoulder with use, no pain with getting clothes off/on. PT-OP-E Functional Tests Start: 05/22/20 08:18 Freq: Status: Active Protocol: Document 07/25/20 15:03 LRN (Rec: 07/25/20 16:03 LRN [id number]) Functional Tests Apley's Scratch Test Action 2- Left T3 Action 2- Right T3 Action 3- Left T7 Action 3- Right T10 PT-OP-H Neuro Start: 05/22/20 08:18 Freq: Status: Active Protocol: Document 05/22/20 11:21 LRN (Rec: 05/22/20 12:32 LRN [id number]) Sensation Evaluation Gross Sensation Gross Sensation WNL Deep Tendon Reflex & Clonus Assessment Deep Tendon Reflex Bilateral Tricep Deep Tendon Reflex 0 Absent Bilateral Brachioradialis Deep Tendon Reflex 2+ Normal Bilateral Bicep Deep Tendon Reflex 2+ Normal PT-OP-J Posture/Palpation/Skin Start: 05/22/20 08:18 Freq: Status: Active Protocol: Document 05/22/20 11:21 LRN (Rec: 05/22/20 12:32 LRN [id number]) Posture Evaluation Comments Posture Comments In standing: Moderate Kyphosis and forward head posturing. Head is level on shoulders, normal arm positioning, slightly elevated R shoulder. Palpation Assessment Location Upper back Palpation Location R intrascapular region & R pectoralis Minor Palpation Details Decreased muscle tone. R shoulder Palpation Location R UT & R mid thoracic region, and R Deltoid Palpation Findings Muscle Guarding Palpation Details R UT & R mid thoracic region - increased muscle tone and muscle guarding, R rotation fo mid thoracic vertebrae. R Deltoid - atrophy PT-OP-K Range of Motion Start: 05/22/20 08:18 Freq: Status: Active Protocol: Document 08/22/20 15:08 LRN (Rec: 08/22/20 16:05 LRN [id number]) Shoulder Goniometric Range of Motion Shoulder Left Active Testing Position Sitting Flexion 165 Extension 35 Abduction 170 Internal Rotation Behind Back (text) T8 Right Active Testing Position Sitting Flexion 160 Extension 5 Abduction 168 Internal Rotation Behind Back (text) T10 PT-OP-L Special Tests Start: 05/22/20 08:18 Freq: Status: Active Protocol: Document 05/22/20 11:21 LRN (Rec: 05/22/20 12:32 LRN [id number]) Special Tests Cervical Spine Special Tests Foraminal Compression Test Results Negative bilaterally Vertebral Artery Test Results Negative Bilaterally Shoulder Special Tests Biceps Load II Test Test Results R Negative Elevation Impingement Test Results R shoulder Positive Comments Pain with forced flexion IR/Horizontal ADD Impingement Test Results R shoulder Positive Comments Pain at shoulder PT-OP-M Strength Start: 05/22/20 08:18 Freq: Status: Active Protocol: Document 07/25/20 15:03 LRN (Rec: 07/25/20 16:03 LRN [id number]) Shoulder Strength Shoulder Manual Muscle Testing Right Flexion 5 Normal Abduction (C5) 5 Normal External Rotation 4+ Good+ Internal Rotation 5 Normal Left Comments Generally 5/5. PT-OP-Q Treatments Start: 05/22/20 08:18 Freq: Status: Active Protocol: Document 09/11/20 13:30 LRN (Rec: 09/11/20 14:22 LRN [id number]) Cardio Equipment Upper Body Ergometer (UBE) Duration (Minutes) 10 RPM 90 Seat Position 13 Height Head height 3 Therapeutic Exercises Standing Exercises Biceps Curls Standing Exercise Name Biceps Curls Side bilateral Resistance 2# Reps/Minutes 10x PNF Golf swing Standing Exercise Name Double Golf Swing (lifting top off) Side bilateral Equipment Used 1# Reps/Minutes 10x Comments Started with resistance Railing push ups Standing Exercise Name Ballet Bar Railing Push Up Reps/Minutes 10x Jumping Aristeo Standing Exercise Name [place] shoulder AB Reps/Minutes 10x 2 Comments [place] pulling at neck and shoulder blades tiring her out . PNF Standing Exercise Name Wood Chop Side bilateral Resistance Lev 2 Reps/Minutes 15x each Lifting (casserole mechanics) Standing Exercise Name Lifting casserole into oven movement Side bilateral Equipment Used crate, 3# Reps/Minutes 10x Comments Pt needed 1x cuing on body mechanics. Horiz AB/AD Standing Exercise Name Rotating bra motion (L to R direction) Resistance Lev 2 Reps/Minutes 15x 2 Shoulder ER strengthening Standing Exercise Name ER Side bilateral Equipment Used Lev 2 TB Reps/Minutes 10x 3 Shoulder IR strengthening Standing Exercise Name IR (R>L) Side bilateral Equipment Used Lev 2 Reps/Minutes 15x PT-OP-R Modalities Start: 05/22/20 08:18 Freq: Status: Active Protocol: Document 08/04/20 15:01 LRN (Rec: 08/04/20 15:33 LRN [id number]) Hot Pack/Cold Pack Treatment Cold Pack Location R upper back Treatment Duration (minutes) 10 Comments Pt in hooklie with back elevated 2 pillows under head. Ultrasound Therapy Treatment R Rhomboids Treatment Duration (minutes) 8 Patient Position Sidelying Coupling Medium Ultrasound Gel Applicator Size (cm2) 10 Mode Setting Pulsed Duty Cycle 50% Intensity Setting (w/cm2) 1.5 Comments 1.5 5' > 1.7 2' > 1.5 3' PT-OP-T Assessment and Plan Start: 05/22/20 08:18 Freq: Status: Active Protocol: Document 09/11/20 13:30 LRN (Rec: 09/11/20 14:22 LRN [id number]) Physical Therapy Assessment Goals Five Impairment Sleep interruption Prison Goal (LTG) Pt will be able to push with R arm to turn over in bed without difficulty or without completely disturbing sleep. LTG Duration 07/21/20 (06/26/20: MET GOAL) Four Impairment Difficulty with personal hygiene care due to R shldr tightness/pain Short Term Goal (STG) Pt will be able to report wiping during toileting without tightness/tension/pain in the R shoulder. STG Duration 06/20/20 (07/06/20: MET GOAL) Plate Grinder Goal (LTG) Pt will be able to wash her hair without tightness/tension /pain in the R shoulder. (07/14/20: Able to wash her hair). LTG Duration 07/21/20 (07/14/20: MET GOAL) Three Impairment Decreased R shoulder strength (ER 4/5, IR 3-/5). Short Term Goal (STG) Pt will be able to pickle pumper food out of oven (3#) without R shoulder pain onset. (07/21/20: Pulling in R shoulder when lifting and leaning, or pulling out, into pretend oven 3# ) STG Duration 06/20/20 (08/22/20: MET GOAL) Prison Goal (LTG) Pt will be able to put her bra on by hooking in the front and twisting it around to the back and she will be able to put her R arm into bra strap without pain. (08/22/20: Able to twist it around to the back with twinges of pain; ~98% better. She can sometimes put her arm in the bra strap without twinges of pain) LTG Duration 07/21/20 (10/11/20: MET GOAL) Two Impairment Decreased R shoulder mobility Short Term Goal (STG) Pt will be able to reach up in cupboard (on step stool) without difficulty. (07/21/20: Able to perform a couple times, getting twinges of pain when stretching to reach). STG Duration 06/20/20 (07/25/20: MET GOAL) Plate Grinder Goal (LTG) Pt will be able to take her shirt on/off without difficulty. (08/22/20: 99% better depending on the shirt) (09/04/20: Able to remove shirt with discomfort, no pain ) LTG Duration 07/21/20 (09/04/20: MET GOAL. No difficulty, discomfort, no pain) One Impairment Lacks appropriate self care HEP. Plate Grinder Goal (LTG) Pt will be independent with a self care HEP to manage her R shoulder pain. LTG Duration 07/21/20 (09/11/20: MET GOAL) Progress Towards Goals Progress Comments Pt able to double her tolerance of exercise with shoulder AB strengthening. Assessment Summary Assessment Pt did feel weakened with shoulder AB ex after she did double of what she did previously. Pt was able to do all her HEP ex's without difficulty and shows improved strength overall. She is not having R shoulder pain, but has discomfort with activities . All goals met. Physical Therapy Plan Discharge Physical Therapy Discharge Reasons Goals Met Discharge Comments Pt is now able to continue with her independent home program. Thank you for your referral.
== END 2020-11-03 15:08 ==
LOC: PHYS 13:30
PROVIDERS: PCP Nurse Practitioner Family; Referring Provider Nurse Practitioner Family; Visit Provider Nurse Practitioner Family
DX: S46.219A Strain of muscle, fascia and tendon of other parts of biceps, unspecified arm, initial encounter (principal); M12.819 Other specific arthropathies, not elsewhere classified, unspecified shoulder; M62.81 Muscle weakness (generalized); M25.511 Pain in right shoulder; R29.898 Other symptoms and signs involving the musculoskeletal system
CPT/HCPCS: 97110; 97140; 97162; 97535

== ENCOUNTER → 2022-08-03 08:57 | Outpatient (CLI) | payer OTHER, MEDICAID, SELFPAY ==
[2022-08-03 09:54] LABS: Add Manual Diff / Slide Review NO; Basophils Absolute Auto 0 /uL (0-100); Basophils Percent Auto 0.6 % (0-2); Eosinophils Absolute Auto 100 /uL (0-450); Eosinophils Percent Auto 2.9 % (2-4); Hematocrit 39.4 % (36-46); Hemoglobin 13.4 g/dL (12.0-16.0); Lymphocytes Absolute Auto 1200 /uL (1100-4500); Lymphocytes Percent Auto 27.3 % (25-40); Mean Corpuscular Volume 94.1 fL (80-100); Monocytes Absolute Auto 600 /uL (0-900); Monocytes Percent Auto 13.5 % (3-14); Neutrophils Absolute Auto 2500 /uL (1500-7000); Neutrophils Percent Auto 55.7 % (50-75); Platelet Count 278 X10^3/uL (150-400); Red Blood Cell Count 4.19 X10^6/uL (4.0-5.2); Red Cell Distribution Width 12.4 % (11.6-14.8); White Blood Cell Count 4.5 X10^3/uL (4.5-11.0)
[2022-08-03 10:13] LABS: Alanine Aminotransferase 51 IU/L (<35); Albumin 4.4 g/dL (3.5-5.0); Albumin Globulin Ratio 1.3 (1.0-2.8); Alkaline Phosphatase 62 U/L (38-126); Aspartate Aminotransferase 35 IU/L (14-36); BUN Creatinine Ratio 19.3 (6-22); Bilirubin Total 0.5 mg/dL (0.2-1.3); Blood Urea Nitrogen 16 mg/dL (7-17); Calcium 9.3 mg/dL (8.4-10.2); Carbon Dioxide 24 mmol/L (22-32); Chloride 104 mmol/L (98-107); Cholesterol 197 mg/dL (140-199); Estimated Glomerular Filt Rate > 60 mL/min (>60); Globulin 3.3 g/dL (1.7-4.1); Glucose 108 mg/dL (70-100); HDL Cholesterol 39 mg/dL (40-60); HEMOLYSIS 17 (0-50); LDL Cholesterol Calculated 136 mg/dL (<100); Potassium 4.2 mmol/L (3.4-5.1); Sodium 139 mmol/L (137-145); Total Protein 7.7 g/dL (6.3-8.2); Triglycerides 111 mg/dL (35-150)
[2022-08-03 10:45] LABS: TSH w/ Reflex to FT4 1.37 uIU/mL (0.47-4.68)
[2022-08-03 11:19] LABS: Appearance Urine UA CLEAR; Bilirubin Urine UA NEGATIVE (NEGATIVE); Color Urine UA YELLOW; Glucose Urine UA NEGATIVE (Negative); Ketones Urine UA NEGATIVE (NEGATIVE); Leukocyte Esterase Urine UA 2+ (NEGATIVE); Nitrite Urine UA NEGATIVE (Negative); Occult Blood Urine UA TRACE-LYSED (Negative); Protein Urine UA NEGATIVE (Negative); Urobilinogen Urine UA 0.2 E.U./dL (0.2)
[2022-08-03 11:24] LABS: Hemoglobin A1C% w Est Avg Glu 5.8 % (4.0-6.0)
[2022-08-03 12:12] LABS: Bacteria Urine Few (2-10); Culture Indicated Urine Specimen Cultured; RBC Urine 1-5/HPF (0-5/HPF); Squamous Epithelial Cell Urine 1-5 /HPF (0-5/HPF); WBC Urine 5-10/HPF (0-5/HPF)
[2022-08-04 08:09] LABS: Hep C Virus Ab w/Reflex Quant NEGATIVE s/c (NEGATIVE)
== END ==
PROVIDERS: PCP Family Medicine; Referring Provider Pediatrics; Visit Provider Pediatrics
DX: E66.9 Obesity, unspecified (principal); F32.9 Major depressive disorder, single episode, unspecified; F40.01 Agoraphobia with panic disorder; F41.9 Anxiety disorder, unspecified; G40.909 Epilepsy, unspecified, not intractable, without status epilepticus
CPT/HCPCS: 36415; 80053; 80061; 81003; 81015; 83036; 84443; 85025; 86803; 87086

== ENCOUNTER → 2023-01-02 15:32 | Outpatient (CLI) | payer OTHER, MEDICAID, SELFPAY | PROVIDERS: PCP Family Medicine; Referring Provider Family Medicine; Visit Provider Family Medicine | DX: R40.4 Transient alteration of awareness (principal); G40.909 Epilepsy, unspecified, not intractable, without status epilepticus | CPT/HCPCS: 93005 ==

== ENCOUNTER → 2023-09-29 13:55 | Outpatient (CLI) | payer OTHER, MEDICAID, SELFPAY ==
--- NOTE | 2023-09-29 | DI.MG.S_ITS ---
BILATERAL DIGITAL SCREENING MAMMOGRAM 3D/2D WITH CAD: 09/29/2023 CLINICAL: Routine screening. Family history of breast cancer. Comparison is made to exams dated: 06/07/2020 mammogram, 07/24/2016 mammogram, 01/29/2013 mammogram, and 08/16/2011 mammogram - [facility]. There are scattered areas of fibroglandular density in both breasts (category b / 25%-50% glandular tissue). Current study was also evaluated with a Computer Aided Detection (CAD) system. No significant masses, calcifications, or other findings are seen in either breast. There has been no significant interval change. IMPRESSION: NEGATIVE There is no mammographic evidence of malignancy. A 1 year screening mammogram is recommended. Based on the Tyrer Cuzick model (a risk assessment model) the patient's lifetime risk is 11.3% and her 10 year risk is 3.5%. According to the ACR, ACS, and NCCN guidelines, an annual breast MRI exam along with mammogram is recommended if the patient's lifetime risk is 20% or greater. This exam was interpreted at Station ID: [id number]. NOTE: For mammograms, a report in lay terms will be sent to the patient. Approximately 15% of breast malignancies will not be visualized mammographically. In the management of a palpable breast mass, a negative mammogram must not discourage biopsy of a clinically suspicious lesion. Electronically Signed By: Tomás [email or web address]:09/30/2023 08:30:07 letter sent: Normal Exam ACR BI-RADS Category 1: Negative 3341F
== END ==
PROVIDERS: PCP Family Medicine; Referring Provider Family Medicine; Visit Provider Family Medicine
DX: Z12.31 Encounter for screening mammogram for malignant neoplasm of breast (principal); Z80.3 Family history of malignant neoplasm of breast
CPT/HCPCS: 77063; 77067